=== PATIENT | male | born 1965 | race Caucasian/White ===

== ENCOUNTER 2023-07-08 15:27 | Outpatient (OUT) | payer BC, SELFPAY ==
--- NOTE | 2023-07-08 15:29 | CT_ITS ---
[address] [address] Patient Name: RUBEN AWAD MRN: [id number] date: 1965 Sex: M Assigned Patient Location: CT Current Patient Location: CT Accession/Order Number: [id number] Exam Date: 07/08/2023 15:38 Report Date: 07/08/2023 16:57 At the request of: JEREMÍAS EVANS Procedure: CT angio chest EXAM: CT angio chest HISTORY: 171.21 ANEURYSM OF THE ASCENDING AORTA WITHOUT RUPTURE COMPARISON: 04/03/2019 TECHNIQUE: Postcontrast images were obtained of the chest in the arterial phase. 3-D and multiplanar reconstructions were performed. CTA CHEST FINDINGS: Lungs/Pleura: There is a prominent pulmonary nodule in the right lower lobe measuring 1.9 x 1.4 x 1.5 cm. No pleural effusion or pneumothorax. Cardiovascular: The heart is normal in size. No coronary artery calcifications are identified. The ascending aorta is dilated measuring 4.4 cm in diameter. No pulmonary embolus. Pericardium: No effusion. Mediastinum: Unremarkable. Lymph Nodes: No lymph node enlargement by CT size criteria. Bones: No acute osseous abnormality. Soft tissues: Unremarkable. IMPRESSION CTA CHEST: 1. Aneurysmal dilatation of the ascending thoracic aorta measuring 4.4 cm in diameter. 2. Prominent pulmonary nodule in the right lower lobe measuring up to 1.9 cm in diameter. Tissue biopsy, PET/CT or a 3 month follow-up CT is recommended for further assessment. 3. Right hilar lymph node enlargement as well as prominence of a right paratracheal lymph node measuring up to 1.5 cm in short axis, which is nonspecific, possibly due to reactive changes, metastatic disease or other lymphoproliferative process. Incidental findings were submitted through the radiology reporting system at 1657 hours on 07/08/2023. Electronically authenticated by: TRICIA STARK Date: 07/08/2023 16:57
== END 2023-07-08 15:28 | disposition home or self-care (01) ==
LOC: CT 15:27
PROVIDERS: PCP Family Medicine; Visit Provider Family Medicine
DX: R07.9 Chest pain, unspecified (principal); I71.21 Aneurysm of the ascending aorta, without rupture; R59.0 Localized enlarged lymph nodes; R91.1 Solitary pulmonary nodule
CPT/HCPCS: 71275; Q9967

== ENCOUNTER 2024-02-04 09:26 | Outpatient (OUT) | payer BC, SELFPAY ==
--- NOTE | 2024-02-04 | CT_ITS ---
The [address] [address] Patient Name: RUBEN AWAD MRN: [id number] date: 1965 Sex: M Assigned Patient Location: CT Current Patient Location: CT Accession/Order Number: [id number] Exam Date: 02/04/2024 09:40 Report Date: 02/04/2024 16:29 At the request of: JEREMÍAS EVANS Procedure: CT angio chest CT angio chest HISTORY: Aneurysm of the ascending aorta without rupture TECHNIQUE: CTA chest with intravenous contrast attention to the thoracic aorta. Sagittal, coronal and slab 3D MIP coronal reconstructed images were also created for further evaluation and interpretation. One of the following dose optimization techniques was utilized in the performance of this exam: Automated exposure control; adjustment of the mA and/or kV according to the patient's size; or use of an iterative reconstruction technique. Specific details can be referenced in the facility's radiology CT exam operational policy. COMPARISON: 03/18/2023 FINDINGS: Thoracic aorta: Cardiac pulsation artifact at the aortic root. 4.2 cm ascending thoracic aortic aneurysm. No evidence of dissection. Pulmonary arteries: Negative Mediastinum: Negative. Lymph nodes: Negative. Lungs/pleura: Stable 1.9 cm maximum diameter solid right lower lobe pulmonary nodule Visualized upper abdomen: Negative. Bones/soft tissues: Negative. CT/CT angio chest IMPRESSION: 1. Stable 4.2 cm descending thoracic aneurysm. 2. Stable 1.9 cm solid right lower lobe pulmonary nodule. Recommend one-year surveillance. Electronically authenticated by: ARPIT WEN Date: 02/04/2024 16:29
[2024-02-04 10:25] LABS: Basophils Percent Auto 0.1 % (0.2-2.0); Eosinophils Percent Auto 0.1 % (0.9-7.0); Hematocrit 47.3 % (42.0-54.0); Hemoglobin 15.8 g/dL (14.0-18.0); Immature Granulocytes Abs Auto 0.05 10^3/uL (0.00-0.03); Immature Granulocytes Pct Auto 0.3 % (0.0-0.5); Lymphocytes Absolute Auto 1.3 10^3/uL (1.2-3.8); Lymphocytes Percent Auto 8.4 % (20.5-60.0); Mean Corpuscular HGB Conc 33.4 g/dL (29.9-35.2); Mean Corpuscular Hemoglobin 29.1 pg (25.9-34.0); Mean Corpuscular Volume 87.1 fL (80.0-94.0); Mean Platelet Volume 8.9 fL (9.5-13.5); Monocytes Absolute Auto 0.2 10^3/uL (0.3-0.8); Monocytes Percent Auto 1.2 % (1.7-12.0); Neutrophils Absolute Auto 13.6 10^3/uL (1.4-6.5); Neutrophils Percent Auto 89.9 % (43.0-75.0); Platelet Count 300 10^3/uL (150-450); Red Blood Count 5.43 10^6/uL (4.70-6.10); Red Cell Distribution Width 12.6 % (11.0-15.0); White Blood Count 15.1 10^3/uL (4.0-11.0)
[2024-02-04 11:18] LABS: Estimated Average Glucose 117 mg/dL; Glycohemoglobin A1C 5.7 % (4.5-6.2)
[2024-02-04 12:01] LABS: Prostate Specific Antigen Scrn 1.03 ng/mL (<=4.00)
[2024-02-04 12:03] LABS: Alanine Aminotransferase 35 U/L (16-63); Albumin Globulin Ratio 0.9; Albumin Level 3.7 g/dL (3.4-5.0); Alkaline Phosphatase 103 U/L (46-116); Anion Gap 14.9; Aspartate Amino Transferase 20 U/L (15-37); BUN Creatinine Ratio 24.7; Bilirubin Total 0.8 mg/dL (0.2-1.0); Calcium 9.7 mg/dL (8.5-10.1); Carbon Dioxide 26.9 mmol/L (21.0-32.0); Chloride 100 mmol/L (98-107); Chol HDL Ratio 3.5; Cholesterol 226 mg/dL (<=200); Estimated GFR (African America >60 (>=60); Estimated GFR (Non-African Ame >60 (>=60); Globulin 4.3 g/dL; Glucose 162 mg/dL (74-106); HDL Cholesterol 64 mg/dL (40-60); Potassium 4.8 mmol/L (3.5-5.1); Sodium 137 mmol/L (136-145); Thyroid Stimulating Hormone 0.768 uIU/mL (0.358-3.740); Triglycerides 48 mg/dL (<=150); VLDL CHOLESTEROL 9.6 mg/dL
== END 2024-02-04 09:27 | disposition home or self-care (01) ==
LOC: CT 09:26
PROVIDERS: PCP Family Medicine; Visit Provider Family Medicine
DX: Z00.00 Encounter for general adult medical examination without abnormal findings (principal); I71.21 Aneurysm of the ascending aorta, without rupture; R91.1 Solitary pulmonary nodule
CPT/HCPCS: 36415; 71275; 80053; 80061; 83036; 84436; 84443; 84481; 85025; G0103; Q9967

== ENCOUNTER 2024-11-16 07:49 | Outpatient (OUT) | payer BC, SELFPAY ==
--- NOTE | 2024-11-16 07:54 | CT_ITS ---
[address] [address] Patient Name: RUBEN AWAD MRN: [id number] date: 1965 Sex: M Assigned Patient Location: CT Current Patient Location: Accession/Order Number: [id number] Exam Date: 11/16/2024 08:00 Report Date: 11/19/2024 15:09 At the request of: JEREMÍAS EVANS Procedure: CT angio chest EXAMINATION: CT angio chest HISTORY: Aneurysm Of Ascending Aorta I71.21 COMPARISON: 02/04/2024 TECHNIQUE: Multi-planar CT images were created with IV contrast. Axial, Coronal, and Sagittal images. Dose reduction techniques were achieved by using automated exposure control and/or adjustment of mA and/or kV according to patient size and/or use of iterative reconstruction technique. FINDINGS: LUNGS: Stable 1.7 x 1.2 cm solid nodule identified in the suprasellar the right lower lobe axial image 53. Additional subcentimeter pulmonary nodules are stable both in number and size from the prior exam. No new pulmonary nodule or mass PLEURA: No mass, effusion, or pneumothorax. VASCULATURE: Normal postcontrast opacification of central pulmonary arterial tree with no filling defects WENDY: Small bilateral hilar lymph nodes right greater than left, stable MEDIASTINUM: No mass or adenopathy. CARDIAC: No enlargement or pericardial effusion AORTA: 4.1 cm aneurysm ascending thoracic aorta CHEST WALL: No mass or axillary adenopathy. BONES: No bone lesion or fracture. LIMITED ABDOMEN: No suspicious findings. Limited images of the upper abdomen. OTHER: Negative. CT/CT angio chest IMPRESSION: Stable 4.1 cm ascending thoracic aortic aneurysm Stable 1.7 cm nodule superior segment of the right lower lobe Electronically authenticated by: CELINA SHORE Date: 11/19/2024 15:09
--- OUTSIDE RECORDS SUMMARY | 2024-11-16 07:59 | XMS_ITS | CCD ---
Author Organization [facility] Care Team Providers Care Gear Cutting Machine Set Up Operator Name Role Phone BOB VÁZQUEZ Referring Unavailab le ROYALYJEREMÍAS Primary Care Unavailable BOB VÁZQUEZ Referring Unavailab le HOY, JEREMÍAS Mary Primary Care Unavailable BOB VÁZQUEZ Referring Unavailab le ROYALY, JEREMÍAS M Primary Care Unavailable BOB VÁZQUEZ Referring Unavailab le ROYALY, JEREMÍAS M Primary Care Unavailable BOB VÁZQUEZ Admitting Unavailab BOB Lopez Attending Unavailab le JEREMÍAS SOTOMAYOR Primary Care Unavailable BOB VÁZQUEZ Referring Unavailab le HOY, JEREMÍAS M Primary Care Unavailable BOB VÁZQUEZ Referring Unavailab le ROYALY, JEREMÍAS M Primary Care Unavailable Jeremías Sotomayor Primary Care Physician Unavailable Primary Care Provider UnavailATIF Werner Consulting Unavailable HOY ., DR VERONICA Primary Care Unavailable ATIF ATKINS Admitting Unavailable ATIF ATKINS Attending Unavailable ZIEBER, DR BALTAZAR Shetty Consulting Unavailable HOY ., DR VERONICA Primary Care Unavailable NILL ., DR ROJAS Admitting Unavailable NILL ., DR ROJAS Attending Unavailable NILL ., DR ROJAS Consulting Unavailable HOY ., DR VERONICA Primary Care Unavailable HOY ., DR VERONICA Admitting Unavailable HOY ., DR VERONICA Attending Unavailable HOY ., DR VERONICA Primary Care Unavailable HOY ., DR VERONICA Admitting Unavailable HOY ., DR VERONICA Attending Unavailable HOY ., DR VERONICA Consulting Unavailable SELF, SELF Referring Unavailable MADIHA IBARRA Attending Unavailable MADIHA IBARRA Attending Unavailable MADIHA IBARRA Referring Unavailable PABLO WOLFE) Attending Unavail able SAMANTHA LONG Referring Unavailable Jeremías Sotomayor Attending Unavailable Jeremías Sotomayor Referring Unavailable MD Jeremías Sotomayor Admitting Unavailable Jeremías Sotomayor Consulting Unavailable Shahzad BLACKBURN Admitting Unavailable Shahzad BLACKBURN Attending Unavailable Shahzad BLACKBURN Referring Unavailable MD Jeremías Sotomayor Consulting Unavailable SAMANTHA LONG Consulting Unavailable JESSE STOVER Admitting Unavailable JESSE STOVER Attending Unavailable JESSE STOVER Referring Unavailable Allergies Allergy Classification Reported Allergen(s) Allergy Type Date of Onset Reaction(s) Facility (1 source) Iodinated Diagnostic Agents Propensity to adverse reactions to drug 3 Nausea and Vomiting [facility] (1 source) No Known Medication Allergies; Translations: [No Known Medication Allergies] Propensity to adverse reactions (disorder) [facility] Repository Medications Current Medications Medication Drug Class(es) Dates Sig (Normalized) Sig (Original) amoxicillin 875 mg / clavulanate 125 mg oral tablet (1 source) Penicillin-class Antibacterial Start: 09-27-2022 End: 10-04-2022 take 1 tablet by mouth every twelve hours Augmentin 875 mg oral tablet = 1 tab(s), Oral, q12hr, X 7 day(s), # 14 tab(s), Refills(s) 0, Pharmacy: [id number], 184, cm, 09/24/22 23:10:00 EST, Height/Length Dosing, 123.6, kg, 09/24/22 23:10:00 EST, Weight Dosing Start Date: 09/27/22 Stop Date: 10/04/22 Status: Ordered docosahexaenoic acid 120 mg / eicosapentaenoic acid 180 mg oral capsule (1 source) take 2 capsules by mouth once daily [place]-3 1000 MG capsule Take 2 capsules by mouth daily. 0 Active 12 hr guaiFENesin 600 mg extended release oral tablet (1 source) Start: 09-27-2022 End: 10-02-2022 take 2 tablets by mouth twice daily Mucinex 600 mg Tab-ER 1,200 mg = 2 tab(s), Oral, BID, X 5 day(s), # 20 tab(s), Refills(s) 0, Pharmacy: [facility], 184, cm, 09/24/22 23:10:00 EST, Height/Length Dosing, 123.6, kg, 09/24/22 23:10:00 EST, Weight Dosing Start Date: 09/27/22 Stop Date: 10/02/22 Status: Ordered HERBAL PRODUCT (4 sources) take 2 tablets by mouth once daily HERBAL PRODUCT Take 2 tablets by mouth daily. CellWise: Vitamin A, C, E Calcium Mixed Carotenoids Mixed Tocophenols Lycopene [place] extract Grape seed extract 0 Active take 2 capsules by mouth once da harika HERBAL PRODUCT Take 2 capsules by mouth daily. ProvexCV Grape see extract Reseveratrol Green tea leaf extract Proteases Quercetin Powder Bilberry fruit extract Ginkgo Biloba leaf extract 0 Active take 2 tablets by mouth once chad ly HERBAL PRODUCT Take 2 tablets by mouth daily. Recover AI Devil's Claw Bijal root Chokeberry Green tea Flower gigas Turmeric 0 Active take 1 capsule by mouth once chad ly HERBAL PRODUCT Take 1 capsule by mouth daily. Florify Lactobacilus Bifidobacterium Frctooligosaccharides 0 Active Multi Vitamin+ (2 sources) Start: 08-22-2020 take 1 tablet by mouth once daily Multi Vitamin+ 1 tab(s), Oral, Daily, Refill(s) 0, Prophylaxis Start Date: 08/22/20 Status: Ordered Multivitamin w/ minerals tablet (1 source) take 1 tablet by mouth once daily Multivitamin w/ minerals tablet Take 1 tablet by mouth daily. 0 Active Vitamin D (2 sources) Start: 10-20-2020 take 1 tablet by mouth once daily Vitamin D 1 tab, Oral, Daily, Prophylaxis Start Date: 10/20/20 Status: Ordered Problems Active Problems Problem Classification Problem Date Documented Da te Episodic/Chronic Aortic; peripheral; and visceral artery aneurysms (3 sources) Aortic root dilatation; Translations: [Thoracic aortic ectasia] Onset: 12-03-2022 Chronic Cardiac dysrhythmias (1 source) Tachyarrhythmia ; Translations: [Tachycardia, unspecified] Onset: 09-25-2022 Episodic Diseases of white blood cells (1 source) Leukocytosis; Translations: [Elevated white blood cell count, unspecified] Onset: 09-25-2022 Chronic Fluid and electrolyte disorders (1 source) Hypo-osmolality and or hyponatremia; Translations: [Hypo-osmolality and hyponatremia] Onset: 09-25-2022 Episodic Influenza (1 source) Influenza; Translations: [Influenza due to unidentified influenza virus with other respiratory manifestations] Onset: 09-25-2022 Episodic Joint disorders and dislocations; trauma-related (2 sources) Other articular cartilage disorders, left shoulder; Translations: [Other articular cartilage disorders, left shoulder] Onset: 11-01-2018 Chronic Lymphadenitis (4 sources) Mediastinal lymphadenopathy; Translations: [Localized enlarged lymph nodes] Onset: 11-18-2022 Episodic Nonmalignant breast conditions (6 sources) Breast lump; Translations: [Unspecified benign mammary dysplasia of right breast] Onset: 11-09-2022 08-22-2020 Episodic Other and unspecified benign neoplasm (2 sources) Tubular adenoma of colon 10-16-2020 Episodic Other connective tissue disease (2 sources) Unspecified rotator cuff tear or rupture of left shoulder, not specified as traumatic; Translations: [Unspecified rotator cuff tear or rupture of left shoulder, not specified as traumatic] Onset: 11-01-2018 Episodic Other connective tissue disease (2 sources) Impingement syndrome of left shoulder; Translations: [Impingement syndrome of left shoulder] Onset: 11-01-2018 Episodic Other gastrointestinal disorders (2 sources) Occult blood in stools 10-16-2020 Episodic Other lower respiratory disease (2 sources) Nodule of lung; Translations: [Solitary pulmonary nodule] Onset: 11-18-2022 Episodic Other lower respiratory disease (2 sources) Solitary pulmonary nodule; Translations: [Solitary pulmonary nodule] Onset: 11-18-2022 Episodic Other lower respiratory disease (2 sources) Other nonspecific abnormal finding of lung field; Translations: [Other nonspecific abnormal finding of lung field] Onset: 11-18-2022 Episodic Other lower respiratory disease (1 source) Abnormal findings on diagnostic imaging of lung; Translations: [Other nonspecific abnormal finding of lung field] Episodic Other lower respiratory disease (1 source) Solitary nodule of lung; Translations: [Solitary pulmonary nodule] Episodic Other non-traumatic joint disorders (1 source) Pain in left shoulder; Translations: [Pain in left shoulder] Onset: 11-01-2018 Episodic Other nutritional; endocrine; and metabolic disorders (1 source) Obesity; Translations: [Obesity, unspecified] Onset: 09-25-2022 Chronic Pneumonia (except that caused by tuberculosis or sexually transmitted disease) (1 source) Pneumonia; Translations: [Pneumonia, unspecified organism] Onset: 09-25-2022 Episodic Residual codes; unclassified (4 sources) Obstructive sleep apnea (adult) (pediatric); Translations: [OBSTRUCTIVE SLEEP APNEA] Onset: 11-30-2022 Chronic Residual codes; unclassified (1 source) Procedure carried out on subject; Translations: [Encounter for prophylactic measures, unspecified] Onset: 09-25-2022 Episodic Septicemia (except in labor) (1 source) Sepsis; Translations: [Sepsis, unspecified organism] Onset: 09-25-2022 Episodic Spondylosis; intervertebral disc disorders; other back problems (2 sources) Low back pain 10-16-2020 Episodic Sprains and strains (2 sources) Strain of muscle, fascia and tendon of other parts of biceps, left arm, initial encounter; Translations: [Strain of muscle, fascia and tendon of other parts of biceps, left arm, initial encounter] Onset: 11-01-2018 Episodic Unclassified (4 sources) Lt Shoulder RC IS Bicep partial tear; Translations: [Lt Shoulder RC IS Bicep partial tear] Onset: 10-13-2018 Unclassified (2 sources) LEFT SHOULDER ROTATOR CUFF IMPINGEMENT SYNDROME AND PARTIAL BICEP TEAR; Translations: [LEFT SHOULDER ROTATOR CUFF IMPINGEMENT SYNDROME AND PARTIAL BICEP TEAR] Onset: 10-18-2018 Unclassified (1 source) Aneurysm of the ascending aorta, without rupture; Translations: [Aneurysm of the ascending aorta, without rupture] Onset: 12-03-2022 Past or Other Problems Problem Classification Problem Date Documented Da te Episodic/Chronic Mood disorders (1 source) Mood disorders Onset: 11-18-2022 11-18-2022 Unclassified (1 source) Aneurysm of the ascending aorta, without rupture; Translations: [Aneurysm of the ascending aorta, without rupture] Onset: 12-03-2022 Results Test Name Value Interpretation Reference Range Facility CTA Cheston 03-22-2023 CTA Chest Exam Date/Time: 03/18/2023 16:12 EDT Reason for Exam: I71.21, lung nodule Report IMPRESSION: STABLE 4.2 CM ASCENDING THORACIC AORTIC ANEURYSM. STABLE APPROXIMATELY 1.4 CM RIGHT LOWER LOBE PULMONARY NODULE AND SURROUNDING OPACITY. The patient experienced severe nausea after the IV injection, and further follow-up imaging should be performed without IV contrast; with the patient has symptoms requiring contrast and steroid pretreatment is suggested. EXAM: CTA Chest DATE: 03/18/2023 CLINICAL HISTORY: I71.21, lung nodule. COMPARISON: Chest CTA 09/25/2022, chest CT with contrast 11/05/2022, and PET/CT 11/05/2022. TECHNIQUE: Spiral enhanced images were obtained of the chest after the infusion of approximately 100 mL of Isovue 370 contrast with pulmonary artery CTA protocol. Routine and volume rendered images were performed on a three-dimensional workstation. All CT scans at this facility use dose modulation, iterative reconstruction, and/or weight based dosing when appropriate to reduce radiation dose to as low as reasonably achievable. FINDINGS: Fusiform aneurysmal dilatation of the ascending thoracic aorta. Unchanged, measuring approximately 4.2 cm in maximum transverse dimension (measured in similar fashion). An approximately 1.4 cm subpleural nodule (measured in a similar fashion from 11/05/2022) within the superior segment of the right lower with smaller surrounding satellite nodules and groundglass opacity, has not significantly changed. Mild left hilar and mediastinal lymphadenopathy appears stable. There are no developing pulmonary infiltrates, other nodules, pleural or pericardial effusions, or other significant changes identified elsewhere. Minimal mild degenerative changes of the thoracic spine are again noted. Left greater than right gynecomastia appears similar. The limited imaging of the included upper abdomen is noncontributory. Report Ordering Provider: JESSE STOVER FINAL REPORT Dictated: 03/22/2023 8:34 am Mansoor Carpio MD Signed (Electronic Signature): 03/22/2023 8:34 am Signed by: Mansoor Carpio MD Transcribed by: ESTEE Technologist: OCTAVIO Technical Comments GFR (mL/min/1/73m2) n/a Contrast: Isovue 370 Contrast amount in ml's: 100 [facility] Consent for Treatmenton Consent for Treatment [id number] #1.00CD:127 [facility] Physician Orderon 03-10-2023 Physician Order [id number]#1.00CD:127 [facility] Pre-Certification Formon Pre-Certification Form [id number]#1.00CD:127 [facility] BLASTOMYCES, SERUMon 023 BLASTOMYCES AG, SERUM INTERPRETATION Negative [facility] Comment on above: ADDITIONAL INFORMATION Reference interval: None Detected Results reported as ng/mL in 0.2 - 14.7 ng/mL range Results above the limit of detection but below 0.2 ng/mL are reported as 'Positive, Below the Limit of Quantification' Results above 14.7 ng/mL are reported as 'Positive, Above the Limit of Quantification' This test was developed and its performance characteristics determined by [facility]. It has not been cleared or approved by the FDA; however, FDA clearance or approval is not currently required for clinical use. The results are not intended to be used as the sole means for clinical diagnosis or patient management decisions. Test Performed by: [facility] [address] [facility] [place] [address] BLASTOMYCES AG, SERUM RESULT Not detected ng/mL [facility] FUNGAL COMP. FIX. BATTERYon 11-22-2022 ASPERGILLUS CF ANTIBODY <1:8 Reference range: <1:8 INTERPRETIVE INFORMATION: Aspergillus Antibodies by CF A titer of 1:8 or greater suggests Aspergillus infection or allergy. Cross-reactions with dimorphic fungi are not unusual within the genus Aspergillus. Performed By: [facility] [address] [place] [address] Alpine Guide: Kwan Whitten MD, PhD Performed at [facility], [address] [place] [address] BLASTOMYCES CF ANTIBODY 0.6 Reference range: <=0.9 Unit: IV INTERPRETIVE INFORMATION: Blastomyces Antibodies EIA, SER 0.9 IV or less.......Negative 1.0-1.4 IV...........Equivoc al 1.5 IV or greater....Positive [facility] COCCIDIOIDES CF ANTIBODY <1:2 Reference range: <1:2 INTERPRETIVE INFORMATION: Coccidioides Ab by Complement Fixation (CF) Any titer suggests past or current infection. However, greater than 30 percent of cases with chronic residual pulmonary disease have negative Complement Fixation (CF) tests. Titers of less than 1:32 (even as low as 1:2) may indicate past infection or self-limited disease; anticoccidiodal CF antibody titers in excess of 1:16 may indicate disseminated infection. CF serology may be used to follow therapy. Antibody in CSF is considered diagnostic for coccidioidal meningitis, although 10 percent of patients with coccidioidal meningitis will not have antibody in CSF. [facility] H. capsulatum yeast phase Ab CF (S) [Titer] <1:8 Reference range: <1:8 INTERPRETIVE INFORMATION: Histoplasma Yeast Antibodies by CF A titer of 1:8 or greater is generally considered presumptive evidence of histoplasmosis. A titer of 1:32 or greater or rising titers indicate strong presumptive evidence of histoplasmosis. Cross reactions, usually at lower titers, may occur with other fungal diseases. [facility] HISTOPLASMA MYCELIAL CF AB <1:8 Reference range: <1:8 INTREPRETIVE INFORMATION: Histoplasma Mycelia Antibodies by CF A titer of 1:8 or greater is generally considered presumptive evidence of histoplasmosis. A titer of 1:32 or greater or rising titers indicate strong presumptive evidence of histoplasmosis. Cross reactions, usually at lower titers, may occur with other fungal diseases. [facility] HISTOPLASMA ANTIGEN, SERUMon 11-22-2022 H. capsulatum Ag IA Qn (S) Not detected ng/mL [facility] Histo interpretation Negative [facility] Comment on above: ADDITIONAL INFORMATION Reference interval: None Detected Reportable Range: Positive Results reported in ng/mL from 0.20 ng/mL to 20.00 ng/mL Positive Results above 20.00 ng/mL are reported as 'Above the Limit of Quantification' This test was developed and its performance characteristics determined by [facility]. It has not been cleared or approved by the FDA; however, FDA clearance or approval is not currently required for clinical use. The results are not intended to be used as the sole means for clinical diagnosis or patient management decisions. Test Performed by: [facility] [address] [place] [address] [place] [address] [facility] BLASTOMYCES, URINEon 023 B. dermatitidis Ag IA Ql (U) Not detected Not Detected [facility] Comment on above: No Blastomyces antig en detected. False negative results may occur. Repeat testing on a new specimen should be considered if clinically indicated. BLASTOMYCES AG, URINE INTERPRETATION Not detected ng/mL [facility] Comment on above: ADDITIONAL INFORMATION This test was developed and its performance characteristics determined by [facility] in a manner consistent with CLIA requirements. This test has not been cleared or approved by the U.S. Food and Drug Administration. Test Performed by: [facility] [place] [address] Casting Machine Service Operator: Pedro Warren M.D. Ph.D.; CLIA# [id number] [facility] HISTOPLASMA ANTIGEN,URINEon 11-20-2022 H. capsulatum Ag (U) [Mass/Vol] Not detected ng/mL [facility] Comment on above: ADDITIONAL INFORMATION This test has been modified from the strategic communications manager's instructions. Its performance characteristics were determined by [facility] in a manner consistent with CLIA requirements. This test has not been cleared or approved by the U.S. Food and Drug Administration. Test Performed by: [facility] [place] [address] Casting Machine Service Operator: Pedro Warren M.D. Ph.D.; CLIA# [id number] H. capsulatum Ag IA Ql (U) Not detected Not Detected [facility] Comment on above: No Histoplasma antig en detected. False negative results may occur. Repeat testing on a new specimen should be considered if clinically indicated. [facility] BLASTOMYCES, SERUMon 023 BLASTOMYCES AG, SERUM INTERPRETATION Negative Normal [facility] Comment on above: Result Comment: ADDITIONAL INFORMATION Reference interval: None Detected Results reported as ng/mL in 0.2 - 14.7 ng/mL range Results above the limit of detection but below 0.2 ng/mL are reported as 'Positive, Below the Limit of Quantification' Results above 14.7 ng/mL are reported as 'Positive, Above the Limit of Quantification' This test was developed and its performance characteristics determined by [facility]. It has not been cleared or approved by the FDA; however, FDA clearance or approval is not currently required for clinical use. The results are not intended to be used as the sole means for clinical diagnosis or patient management decisions. Test Performed by: [facility] [address] [place] [address] Performed By: #### Y FBMS #### [facility] (DEFAULT) [address] [place] [address] BLASTOMYCES AG, SERUM RESULT Not detected Normal [facility] Comment on above: Performed By: #### Y FBMS #### [facility] (DEFAULT) [address] [place] [address] BLASTOMYCES, URINEon 023 BLASTOMYCES AG, URINE INTERPRETATION Not detected Normal [facility] Comment on above: Result Comment: ADDITIONAL INFORMATION This test was developed and its performance characteristics determined by [facility] in a manner consistent with CLIA requirements. This test has not been cleared or approved by the U.S. Food and Drug Administration. Test Performed by: [facility] [place] [id number] [place] [address] Casting Machine Service Operator: Pedro Warren M.D. Ph.D.; CLIA# [id number] Performed By: #### Y FBMU #### [facility] (DEFAULT) [address] [place] [address] BLASTOMYCES AG, URINE RESULT Not detected Normal Not Detected [facility] Comment on above: Result Comment: No B lastomyces antigen detected. False negative results may occur. Repeat testing on a new specimen should be considered if clinically indicated. Performed By: #### Y FBMU #### [facility] (DEFAULT) [address] [address] FUNGAL COMP. FIX. BATTERYon 11-18-2022 ASPERGILLUS CF ANTIBODY Normal O [facility] Comment on above: Result Comment: <1:8 Reference range: <1:8 INTERPRETIVE INFORMATION: Aspergillus Antibodies by CF A titer of 1:8 or greater suggests Aspergillus infection or allergy. Cross-reactions with dimorphic fungi are not unusual within the genus Aspergillus. Performed By: [facility] [address] [place] [address] Alpine Guide: Kwan Whitten MD, PhD Performed at [facility], [address] [place] [address] Performed By: #### F CFX #### [facility] (DEFAULT) [address] [place] [address] BLASTOMYCES CF ANTIBODY Normal O [facility] Comment on above: Result Comment: 0.6 Reference range: <=0.9 Unit: IV INTERPRETIVE INFORMATION: Blastomyces Antibodies EIA, SER 0.9 IV or less.......Negative 1.0-1.4 IV...........Equivocal 1.5 IV or greater....Positive Performed By: #### F CFX #### [facility] (DEFAULT) [address] [place] [address] COCCIDIOIDES CF ANTIBODY Normal [facility] Comment on above: Result Comment: <1:2 Reference range: <1:2 INTERPRETIVE INFORMATION: Coccidioides Ab by Complement Fixation (CF) Any titer suggests past or current infection. However, greater than 30 percent of cases with chronic residual pulmonary disease have negative Complement Fixation (CF) tests. Titers of less than 1:32 (even as low as 1:2) may indicate past infection or self-limited disease; anticoccidiodal CF antibody titers in excess of 1:16 may indicate disseminated infection. CF serology may be used to follow therapy. Antibody in CSF is considered diagnostic for coccidioidal meningitis, although 10 percent of patients with coccidioidal meningitis will not have antibody in CSF. Performed By: #### F CFX #### [facility] (DEFAULT) [address] [address] HISTOPLASMA MYCELIAL CF AB Normal [facility] Comment on above: Result Comment: <1:8 Reference range: <1:8 INTREPRETIVE INFORMATION: Histoplasma Mycelia Antibodies by CF A titer of 1:8 or greater is generally considered presumptive evidence of histoplasmosis. A titer of 1:32 or greater or rising titers indicate strong presumptive evidence of histoplasmosis. Cross reactions, usually at lower titers, may occur with other fungal diseases. Performed By: #### F CFX #### [facility] (DEFAULT) [address] [place] [address] Histoplasma Yeast CF Antibody Normal [facility] Comment on above: Result Comment: <1:8 Reference range: <1:8 INTERPRETIVE INFORMATION: Histoplasma Yeast Antibodies by CF A titer of 1:8 or greater is generally considered presumptive evidence of histoplasmosis. A titer of 1:32 or greater or rising titers indicate strong presumptive evidence of histoplasmosis. Cross reactions, usually at lower titers, may occur with other fungal diseases. Performed By: #### F CFX #### [facility] (DEFAULT) [address] [place] [address] HISTOPLASMA ANTIGEN, SERUMon 11-18-2022 Histo interpretation Negative Normal [facility] Comment on above: Result Comment: ADDITIONAL INFORMATION Reference interval: None Detected Reportable Range: Positive Results reported in ng/mL from 0.20 ng/mL to 20.00 ng/mL Positive Results above 20.00 ng/mL are reported as 'Above the Limit of Quantification' This test was developed and its performance characteristics determined by [facility]. It has not been cleared or approved by the FDA; however, FDA clearance or approval is not currently required for clinical use. The results are not intended to be used as the sole means for clinical diagnosis or patient management decisions. Test Performed by: [facility] [id number] [place] [address] Performed By: #### Y FHIST #### [facility] (DEFAULT) [address] [address] Histoplasma Antigen, Serum Not detected Normal [facility] Comment on above: Performed By: #### Y FHIST #### [facility] (DEFAULT) [address] [address] HISTOPLASMA ANTIGEN,URINEon 11-18-2022 HISTOPLASM AG, URINE Not detected Normal Not Detected [facility] Comment on above: Result Comment: No H istoplasma antigen detected. False negative results may occur. Repeat testing on a new specimen should be considered if clinically indicated. Performed By: #### Y HISTG #### [facility] (DEFAULT) [address] [address] Histoplasma Ag Value Not detected Normal [facility] Comment on above: Result Comment: ADDITIONAL INFORMATION This test has been modified from the strategic communications manager's instructions. Its performance characteristics were determined by [facility] in a manner consistent with CLIA requirements. This test has not been cleared or approved by the U.S. Food and Drug Administration. Test Performed by: [facility] [place] [address] Casting Machine Service Operator: Pedro Warren M.D. Ph.D.; CLIA# [id number] Performed By: #### Y HISTG #### [facility] (DEFAULT) [address] [address] Outside Mammographyon 2022 Outside Mammography [id number] #1.00CD:127 Normal [facility] Coding Summary.on 11-12-2022 Coding Summary. CD:[id number] Gh0bWw+PGhlYWQ+PE1FV YLmW73swZBepT5BG4xEZ K0RGPYBXPWTWZ5CVK4an PE2NTbcQ4FhbpKr QpcsuFLgCK18LXq6ZXM6 cGqcQGmpvK9tjPGaV6z5 BpOdTC96yK37ZWieGTGd DtR3ZnSrnikjxQOw T3waXcZsgFUlYvl+PHRh YmxlIHdpZHRoPScxMDAl CcQneQivFN6nNc3jYGOq LWNvbGxhcHNlOiBj y7uyELFqCEyqHQ9udQiz L5MusMS3WMKzb5a3Nt91 dHI+IPIlQLI4sBjvXAuu b443BzIqo5qdPCE9 nJYkHHdcHHZ2O28be6D7 HVQsBXTeIHI5mYL6fV4n bHkjywkaT4HxmDLiQdB3 QKZ0eITxqB8zwHqc aciybH6jRjv+O29TPY6V YKXLNT5EYyi5Y1AoSazo dHI+CN11ULEeDU75hEAr sVPrt3lqxKk5AlUp JYUmRGV2qCoaYWcuy2Kj RFIfX31vcDYmu3E7CYKv eQhriIEqByJzvMH0cL3v RXorzdkjl4ezfhfg Jtoqs3cbvu70dT55O16a UAdyAMGfJZJ4QIGlXBLb zXuuhm3clJ7tYu9+IDxj c7cfz9xapYv7HrOi GYEmbsPzgNmqPWO1e0Lr Zf59H4EatBwrg6AvWji3 ng82yVEgz6S9hHZ5ULep ZWOkvM6ySHpmEgS3 YOSaJbXnjQ48dIIzHYoe Ws0pyBrxoLujGZ4cZYMy atftOUIphM3oPWFieCWo wJouWH6pBPXhvnll c584MdJmVTI1SHGdtPEy Z5IheX2kNtLvBFDmWGXm T4VagNIeBKikK591GHrc HgH8CPOhxxRnJ2Ee GELzfTnrTyS4z5U1Yq3D h9OozhngAVC1WZdxNACv NrGoGrXbSqR6H3OrRyt6 COLlqRybSW6jT5Ex LATxgnvlnbdnxFX5SXVr FKQhyX57tIXiOKxbTh4x d2P0k032HCUuGSSfaR41 Mm4hiXbgMJAucVXX gU0oehvox5mhqoxtPcWw BZZeMJy4YQy2NCWzhQad XpOfIEF1OqG4MDH5sGIh zU0zlTocajybiE9p Oyc+C37cyB1fASQ2ZFT6 xvkmUYUfixQcLS95JQ98 V1KaFhvsqNDypCE+PGRp yuIqrJpoXX9oLzHw y7otb7XcADczQ0YoVZSh XNsmEfs1RUFmJJS6tXS7 wL9qYVRhVRpyf9W8oKH1 A9VkliGhsn3ew6wq BGMtNLmuS83amUUet0Q7 JSXwxRT7IHKqbRamFtCh wY88Jaa+DZRqnUapv8Kt Pdlzm5gnc9hqiRd6 IjMwJSIgdmFsaWduPSJ0 m4AdVs26I37eEPzoSIIc NIMbDBPfDADdrQxfzf6e xJ7tWt1+PGNvbCB3 nZS5dD6zVFZaFyC9XAwm V000DgXzlYYkTgwxx2ue a2dfbPq5LjJjDDRhhbIh qVeoLWA5e8BiBf94 R02wDDqtXXRmVNBrLTVv ELYoiKgmdc2liL9sHq1+ UQ1sk1cvyw39bX86yVB+ GBCsWBM9bMglQUvr MCXxsM8sLClrMbH6FUJh DyRnyA35dDFwGVcmUj1i qCvnyXtuGX9hATLraqkd a168UfBns3ylJWKp pNRfQKuvFAY3W76ta1H7 HSOuYDOcWWE9iQP8xO2b bGlnbjogbGVmdDsgdmVy qGqyBMuiCGzlR223 IHRvcDsnPlBhdGllbnQg ToMwAPz3L2XkGib8MSLi gRkrEJ5fzHMlBOuiXz6o mXxjjAasEM4hQIOf zhqfo209BpCgc4vmUQZw cGBpKBkoODR9C92up6Z1 BOWnZZCwZBG1lNT0vL8c bGlnbjogbGVmdDsg ltKaqCyzOPbvAOhlE818 IHRvcDsnPkJpcnRoIERh rKZ9RB12WT30xJSdt8T7 jNV9I9PxBPEacbed mirsmZW1NTReGKKimH20 Rc7jkIyxOc9tWRBsTAZ3 DTIolOZhQ0PefF7qUuYl HONlRSSnT7FtoBPy IRhyR954HXvqPtL3JEWw uePpB0HmKLStsAroPhU2 h7C6Lb5NK6G2GQ33CO88 iVHfc6G2hZT6F7An HSRsofeevmbwqXL9XPBf OUZgzN58Pe7plNsbYq3v QJXgUEQ5JARsyRZkJ7Wv xA1jYoDjMIMgGFRd Z8VntTBmOGgjW229OKsg JuY4OORlisDuR7IuJCSe hZaiNhS7c3N6Lq9DUSa7 QO85KW13kRVtf6G6 sYW8E9ChCSDnebeqmriw bVE7NQNjFXEzdU65Ma4p qHygIx9wVFAxWXG0ZWKx iEHmO2TlsK3vHqBl OQRvVYSxG7NsaCAlNRhy G674WOpmMhE1QCRjuzBr Q7EbTMPxbZumSoH1a3J5 Yb1YPNXlMR73NYV5 kWZ7PY79KP15W6NmOmmj dGFibGU+PHRhYmxlIHdp ZHRoPScxMDAlJyBzdHls ED0hWx3nVTZvGVNe xZnxqEHrQdGop7xpRNEv KGfsBR4hiDyfK1EkwWN5 FUDwf9o7Vv45B28wS9Qt dXA+WNUmaFF2gUD6 uP0cQvWlPgE9AJaiV933 CiCaoRLeIwior4ysu8jh hDv0KoZ9DOCzwoPxiRmh FVK2h3YbYf86K05p IHdpZHRoPSIxNSUiIHZh tWqkyr8lyH2jHl3+PGNv vWV5uGR6qM7fDeMuJkI9 LJypG019CeTnpGUk Tcdeg8tbt5olrSt1TeTg RWVuryGcmFbsZFQ1j1Bx El99K3ZpdGkqk4CnSvh0 lc47lSWni1K1uRY9 F2EoSOAoryeqbBTrhWvi HJ2kJVXuniscGPCteJ5o TXLfY9p4HnYyVdL2SYaa V8CfeaP6CNEcqRPg OVsaKTG4U55zd5V6RBHq ZICwADH6gMD0nG3fuSsy bjogbGVmdDsgdmVydGlj JXfeJQddK740JUXj aDomLMEdaA6kFJHazHQf eYabNZ8gEQWitexhDlLE UlVOSywgUklDSEFSRDwv dGQ+APDjKZC8jPkt WXojETJwjT7sRDCpC2r2 YiVdAnZ0CVcyF4KoAPJw odenSj45iE9wRhAvKdR3 CDewU3IzxgF5EWWu zIUoBLrfEPS1O19cx9S1 YHFwVBZnONX2bON3rJ6b bGlnbjogbGVmdDsgdmVy lHfhKModHVvvT262 ZKKxhEndIhY4XfU3PcR9 Kgu7G7FlBor8MJQfyTra CP8ohYZfBOmdEo6svIhq nIczRO3cGZRgjspp YSDyiI9yZACreIAfdGrx TR6bVSAvqdbip604MoFi SJP1URPvhUOjC6CefT4u IuOhJIXlNTIpG8Wh pQTdUEbvT600FNhaPdG4 SANhpdUdH3IuGSZntHso TaY2b2A0Ak91YOZDRTPm czwvdGQ+PHRkIHN0 qJcvQDxfIBVusJ4rRSJl N4f8JsHcGoO8RVhwA0As ZMIqtvliVb82rC0oEjWo LsO1TYugV1IaytB1 DBGlbPOxJSnkAMQ0Z52o j5J0GKRtLWQdYUT8eOP9 fA2cnWutapfrxCJekAjd dmVydGljYWwtYWxp C472DUCeiXauAh6gmLU0 W3PnKcp0LCAahCnkGQ0l bWRrBFpmDf4htKvrzZlm CX2dYKRyomrnEQBl wN7kSPHzlONjyHwbMD1g BQUxhoqyl525TfAbARA3 FWSupRFuJ3ZksX4gBwDl RQFtWBNrU9JdsKVw EPclO202SFwrDzR7MMIb spTjS7WiMJQuySisAhV2 a9G2He5JHYW2hxFbujs7 G9BjCjqzuHT+PC90 DFMhLL52rFCibDYzq1mj dUq1MiOsFYQzOBF7uYyt FKrhk2HmMLLzH37srXLm x3M2QIVxwTemqWUr QvUbgWM4iH1nBOoxtrfp z9hfyzgsYopnr1zrxm97 bX62Y67bWQphHDBiKOFi GRKeDPYotMahgv5a eY3kJb7+KVXbhZK8eLM3 uO4eVrUyYxF0CYojG564 OhOqbWXjSjvzt5bxu4ri hIi2LgZkROLmqgFw gOysLFZ2n7VwJt63D88k IHdpZHRoPSIyMCUiIHZh rPrzas3fjI9jIs7+PC9j m7okje64jI01vPD+ TZKqTHJ2sHkkGNjgEQCs oB6jASptOrH7AIUqSlRl nP39oGCyPSsuFs5bvJew cZyyOS9oCTWatfib f042RgQjn6gxPQKbvMTe WGahCGW5Y26cf5N1FQDz OTDuNCU9xIE7rL9ddPsl bjogbGVmdDsgdmVy vChrEQlbACzqB646KZKh nOgpJmLhxELvL1dwibBU OT7rQhgovVN+PHRkIHN0 bYwcULhlSZCwaF0h ZIRiB0t6SaDcXkD2CRny J8RvobW0YHOvqLCnXWGe jAFWdB7sernuy1yulbyz NgHnJJIhEKs9PNw1 EWKnhDptPeOeJAN7MxA0 WYK4gHFjtF7jsWtcebfu pJ1rInb+RklOOjwvdGQ+ QFBkKBX6kOnrUDes QYNdkF3sDLUsC7x2QfUv GeG2HIbhW0XkwuX3YCOn wKJaSRZmoIKSiV9hqiat j7bliimkIvNmNARd JLv0MAq9WIFdrGlfUcUh PVB8WmL2RUI9zXNkaJ0l eKvyucrloO3lClm+TVJO OjwvdGQ+PHRkIHN0 iNdbQVjjGINptT5lQZEk Z9t3NbNpRqM7WAoqI0Lj maN6DIDudHFpFGLjkFCF aM1bwldaf4grwyub YdFvTGIjLXy3MKl6BXPp qPnjFhWxYYP3OpY2WVZ8 lLMtgY4qmThxxxmjcT6f Oyc+WMP3KKY4AE75 BV65I2FhGctlsODbfEP+ PHRhYmxlIHdpZHRoPScx PDAkJqOkyPuiKK9mEv3f ZGVyLWNvbGxhcHNl OiBj (more content not included)... Normal [facility] NM PET w/ CT Scan Skull Base to Midthighon 11-11-2022 NM PET w/ CT Scan Skull Base to Midthigh Exam Date/Time: 11/11/2022 07:34 EST Reason for Exam: C34.90 Report iMPRESSION: FDG AVID RIGHT LOWER LOBE NODULE. 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 FURTHER TISSUE SAMPLING RECOMMENDED. POSSIBLE RIGHT HILAR AND PARATRACHEAL ADENOPATHY EXAM: PET Scan REASON FOR EXAMINATION: NM PET w/ CT Scan Skull Base to Midthigh right lung nodule. Further PET/CT characterization RADIOPHARMACEUTICAL: 13.4 F-18FDG. TECHNIQUE: Following intravenous injection F18-FDG and an approximately 70 minute uptake period, low dose CT and PET images of the whole body from the base of the skull to the mid thigh on a dedicated PET/CT unit with the patient in a fasted state. The CT protocol used for this PET/CT study is designed for attenuation correction and anatomic localization Using the strategic communications manager\X2019\s standard software, data were reconstructed using filtered back projection with and without attenuation correction. A low dose, noncontrast CT provided attenuation correction and anatomic localization of PET abnormalities. This rides attendant CT is not designed to produce, and cannot replace, ytiso-lp-ghu-art diagnostic CT scans with specific imaging protocols for different body parts and indications. The patient\X2019\s baseline plasma glucose at the time of the test was 113 mg/dl. The standardized uptake values (SUV) are normalized to patient body weight and indicate the highest activity concentration (SUV max) in a given site. SUV may be used for reference purposes on this exam but caution should be advised in using an SUV to differentiate a malignant from a non-malignant process. COMPARISON FDG PET/CT: NONE OTHER STUDIES USED FOR CORRELATION: NONE FINDINGS: Neck: The distribution of FDG throughout the neck is within normal limits. . Chest: Solitary 3 cm nodule in superior segment right lower lobe is FDG avid with maximum SUV of 4.0. There are no additional FDG avid parenchymal lung nodules. Mild FDG uptake in the right paratracheal and right hilar lymph nodes. These are suspicious for possible malignant lymph nodes. Mild FDG uptake in the left breast subareolar tissue possibly secondary to gynecomastia. Clinical correlation suggested. Report Abdomen-Pelvis: The distribution of FDG throughout the abdomen and pelvis is within normal limits. Physiologic activity is noted in the liver, renal collecting systems, bladder and GI tract. Bones: Focal uptake in the left femoral head corresponding to a sharply marginated cortical defect likely related to previous surgery. Clinical correlation suggested. Otherwise There is normal distribution of FDG throughout the bony skeleton with no signs of metastatic bone disease. FINAL REPORT Dictated: 11/11/2022 8:12 pm Miguel Santos MD Signed (Electronic Signature): 11/11/2022 8:12 pm Signed by: Miguel Santos MD Transcribed by: ESTEE Technologist: MIRZA Technical Comments Dose (mCi F-18 FDG): 13.4 Imaging Post Administration (mins): 50 Normal [facility] RAD - MISCon 11-11-2022 RAD - MIS [id number] 2#1.00CD:127 Normal [facility] Coding Summary.on 11-10-2022 Coding Summary. CD:[id number] Gh0bWw+PGhlYWQ+PE1FV JSqY41ivTEyhM5JU6cUR H7SBUGRBTZOBF3XNO3zj MR6KLttQ3LebqXx ApebdNAhQF88UMw2QRF8 vYrxTMphmY3zgJAvV3f6 BdLfKF50sW02TQorBLYn EkT6HfIxcicvtXCl A8nzLoJmxUGxRdv+PHRh YmxlIHdpZHRoPScxMDAl JqLtxIspBO8eYo3aUFWd LWNvbGxhcHNlOiBj m6jiDWPlLUbwNA4axEqo J5MmrLQ5VNXve2u2Kw77 dHI+CDBuSAD6eTwvOAio m813OfBww0cjYXD6 sGKbIGacJVT7E72kz9Z1 BUHmZVVdXWP9qST1vS2h xYlygalmJ5WibVLpGsT2 LPM4lLLibO4lcSuq lkqytZ4sRdq+M73PHO2V ZQURWX9SRar9J0BsOhqj dHI+QM92EQHvYE55gXBh kWCaw0mtmRh8IyZz UOYkARH5yZvgXJwrr9Wk EEHjG54wnQTrx6S2YDJj tLczoLHqOtYlwBG9pW2w EQjqwuope9dihjjv Clubx8rqcv15vP75R00q AWeyFXHxTZW5AOZpFWFs tNzidy1oqP9jKh7+IDxj h4yrz3gyqBb6FnAp XEAtpvHolPfrAOD6w1Mg Bg41F7LddDccb5MrRqd8 ri94iPQhw2W5qXR7CSqu QWIszC8kZVuePyB1 TMRcCaSfrM19mVCaGGpw Cp3kvWgmxMyrCU8gUFJk ehhqSJMlnH1yMAIldKGx cIkhFU3dIYCqapsv k367VgKbFXP5SITjeYLb P6LkpE3dVzSwOXLaTKZj Q9OmgPIwVQluE076KMtt AvI0VZSxofFtB6Pc VPOggUtkKfY3f2C9Ma1A r0TlfbflJTM5ELxpLTQk AmEsJkJxHkF2M4YpHts1 YMQtcIcyER5iH6Yf JXPkxetrqzutcCA1ENTl LHLdiW57tHUrBOqtHd4o s5R6o164FIIfOMQzjM22 Pp5zgHgcLOCgrBQN uU8mdgvhq2imtphrWnEt UORjBQd7KSz5BQOzfXdb EpNzZTJ4PtK7NDM1iELv sJ6eyTeahwxzkV1h Oyc+T65doK8qJFL4LLO2 sipiXCJrafFiPV28SR71 V1IpEmgdbIKpkFF+PGRp ocOxdIxmFU2gAhNi z4cwi2OiHUjrM2BzLXBp ZSglCbv7ZBMxSCA4qOU2 hS8iGQAnRGfcb5X7tYC6 P4BlwmIbkv1xx0pu EUKjYAifR72grUAoj8K7 HIOnsVK2HMCfsWnfPpSi wI22Cjb+KVRqdJuoh0Xf Eccst4wno9auuKt4 IjMwJSIgdmFsaWduPSJ0 i2VlRp19A56aZPsmYQZc VILeNFBoNMRtwFtacg8t nC3jZf2+PGNvbCB3 oDJ2sC5jHBAnDeT5DKrv U627OuEoeAIyNnsnj4lm o8ybaUl5IwIwOGMputHd zWujIRN1q7YoFl45 L40uBCgiKFQsPTPnOQNt HGNzhYdolp3mzY3qPz8+ SQ1ql0sygu53rE81qII+ AOXcVBQ8bKyySOue OLXxgY7fOAnjRzT5QQTp EySzfC63aRNxPYnrBb2p rKecjHmyXH4iGFAovbex m167FzCpk6cpENJx uRHqEHeoJAZ6Z58mr9I9 VFEoFJWjGHX8eFI7rH8q bGlnbjogbGVmdDsgdmVy qBwkKRkvSPtwT162 IHRvcDsnPlBhdGllbnQg OjPaLFo1I7GxHcq8XBTn lAtoDN6ijIGjBBwsSn0j bEnayZroWQ2oTHSl ydhdd559WqDdv9tnYRHt sKZsRNphKUH1Z89xw0R8 RUJcUKTkQUO0eGF1uJ9d bGlnbjogbGVmdDsg loHnoUxzLZwqYTruK812 IHRvcDsnPkJpcnRoIERh vDS0CW44YT44uBYgx1Z2 kBM7M6TpMHMicjbm ykzpiUQ0OSSyNVIlaF04 Rf3hsTfjQo1bHRBcVBQ5 FIWwbJCeO4RyoY0tKjLh YAJkAYBvY5BobWGv PIvhK840NXuuHqI4YZPj dxOrH1QwOMBhzZyeEmC4 u6W3Vo6MG7G8MX15WX31 bWTvm4N5vFQ0Y5Ab JBOqagsxoukdcGL7CWIk MKSyeO16Pw6oySvbLo3i NTVzUGO9NFVneNBoR6Dh tJ7rXhPcFWQfGZYi Q4YzuUArIEdmL964THxj BhM2JUDxnqQkT3JiZMHd lKweKpZ5p8F8Ep4NCIk0 TZ23HN11pJPba3O4 zNT7V8YdJBQpqqonwket vJK1EMFbBKGwdA69Gz7s kXfyVt8lVXCbOZA6AQYz xMYqF8SfjL7wQnFp CWHrZIYlR2RjkDCoSUmk D795VOsaYaI6MAEpvbKw K8QwIFQriVmjByT1l8A7 Ql2LXVWkDP64OHN7 aOA8BQ53UP42Y6VnIlls dGFibGU+PHRhYmxlIHdp ZHRoPScxMDAlJyBzdHls KQ8rFw8uXDZcFSUn uCksaBQrLbIzs9ypBPAj MLdzSU8sxYpqH2DnrIP0 EJOft3m0Lh89J17gT3Tq dXA+DDHihKV5wBF3 nZ8eWrFoXjX3CZvgL614 LzQwfNAlIatnx4pgo6ma tCr1ClE1SHTqxfXspXke FSG5e5NzHl70E60n IHdpZHRoPSIxNSUiIHZh xIysig0vcN7qUm7+PGNv eMQ8yDK7pP3iUtFoAgF2 BOmdL794NmEcnTRb Zzmiw5htn9dfiOz1CpBl FRAlibFydMfyDWN1b5Fg Dq30Q8PkuFfgk7WhWqg5 bh94hVFaw4G7vPP7 N4XaEMTaiamdfGZrqNws EA2jORYjpmliQAChyE0w MEDiW3c3VyCgDrD4LZbe C2JhxaP4GCUzrSCw PLjnLMN9T89mt1C8TISf ZFLlBWQ6uUW5sC2neLkr bjogbGVmdDsgdmVydGlj PBizLQwnR421AZZb vPpcDHNgaB8sWGRtjJRe rEgfDD2tHUWqipjdZjCY UlVOSywgUklDSEFSRDwv dGQ+OHEuYJG8vEtt GXlcKSSbkO2oSYShJ4u7 LuMyPnD0ELxhB7IeULJf exfyDh28jO4dYaJkRdA0 HQxsB6OtbzY2SSWk tLHaHPowDSE2Z15om9S5 TFHgZTPaRXB9dXV5vG5s bGlnbjogbGVmdDsgdmVy eCknMCkuKIttI687 CZQraNnaVoN2FiC7TbL6 Pqw0O6KgNdd6EMUvmZoc UJ0kmBFaGOqhSv8sfFpq iYafEB9iMRExyind IIUlxH9cLHEbrEBctCes WD5rASHepirgs492CsTo EXJ5ENSmxERaM0KvyC4t SiRpZPDmNBKbT0Tf oEUsTIwvA629KNqfDkB1 SOKfrtBjC7UyBNLjtFeh NcU6x8B8Zp96DASDCLKw czwvdGQ+PHRkIHN0 eOymILnkFGKegH1bORRi D9z3QcCaFcA1BTgqY5Em FFQnmqehUb30uY6xTrXl HkC4ITtcD6FfdlR7 OVNmgPOmSIvrRRT9C73f c3X3WEQeBTHcQCB7jXV8 dA0tdGwlabtxoVKqsEvq dmVydGljYWwtYWxp O730NYWdjRgwUq2xzBI6 K6SeLhr2BXQixFzjHS0j wCOpTFafEy5syTlfkKel MB6xAGDlkcsfVUNq wS1lPOFggKQhlPfoPQ0d SZNrqgvsz764TtBfPNK3 TSPejMOyB8UxaI8wSjCf MMZvMMNhU1YqzIFz WVzjA417IAthWiO4QRYz lkUqL6GaPCEklMlcTdW4 y1W2Hz5LzYNnITVgAR80 EX65KH66K8XsWmat dGFibGU+PHRhYmxlIHdp ZHRoPScxMDAlJyBzdHls EQ8pKe9cCUTsNEXeoPxo sMNoMrBpl3rkRTTn ZIquLJ1tzYldB2NrkSS0 ZJZol6w5Fk28Z02tK5Gs dXA+TCIotQL9zAS9rN2n VeXqOcC8TQdbX316 AwBflFHnLcndq5cnb7ld jLc6TbLnPOZdehOxwBtr OUC3a5SxEs38D76mDCvb ZHRoPSIyMCUiIHZh nLdtli5yqR5aPy1+PGNv hCZ6wYQ1vM8fNjDsToP8 BDekU951IhFhiHUoTuyx Q66mN8PsnUI+PHRy Ppi8OAJyaTemLE1cwXAj WGirAd4mMIT8SeSySbKv YFyqQ7DkHAZiriflofsn sZE4IJYbDONtmQ36 Zw3taDsxLm4wPHVyKHW9 TFVmcOQfG4RtyL7fAsWv OSKyXNBxB7SctHTxLEuz V813MCduXbN8ZREc qsBhQ4YkTVZglOlxKjW5 t9O2Se9RjUxxdYZhYA9h WeKbZQx0T1HsNsh9WVBu gAswID5oeZMaQDdw Wj5nzEovbFgvEK9kSAUy ugezp988WtUke6bcOTWf aORxYNziXIG6V78px5Q8 ZYVuASYhWET2bWT7 bE8zjXepjwefrOElvMnb nyJbxOimEVevERllL650 JJNysEykCxSQSux3J0Ud Vzr8QQMcsGxkNK9s uNGfAJlvRy5gsJdqhHbg TY4fKSLjjfkjz885RhDi x2gaMRTutJIxTPreRET5 R17lw9B2OCQlYXXw USW9qCR3uQ0saExbjozz bGVmdDsgdmVydGljYWwt DDesD535KAAyzHrdFl4E Mrd1K4UxPpz4SHRd lXqxNN8siIFsBRqxKi3u eEewzNfnZL5gKMEzaukt z654PqGoc9uzGVTpyGSf TYlkDMG1B92ld2F0 UDNhXORlQPN2oCF9xG7f bGlnbjogbGVmdDsgdmVy vMvdBNugKVlxC805YZHq cDsnPlBheWVyOjwv dGQ+JR65ml46I8UpVtdi Jlc9GZLaBND2zIO1xK2r PONyUDstx1R7nHR9Q0So fhAqnj8ct0lmJKLj ZTog (more content not included)... Normal [facility] Consent for Treatmenton Consent for Treatment [id number] #1.00CD:127 Normal [facility] MG MAMM DIAGNOSTIC 3D REYNALDO CA Don 11-09-2022 MG MAMM DIAGNOSTIC 3D REYNALDO CAD Patient: MIGUEL AWAD Exam Date: 11/09/2022 : 1965 Gender:M Ordering : DR BOB LEZAMA . Admission #: [id number] Family : Order #: [id number] CLICK HERE TO VIEW EXAM RADIOLOGY REPORT PROCEDURE: MAMMOGRAM DIAGNOSTIC 3D BILATERAL CAD, 11/09/2022, 13:47 ULTRASOUND BREAST LEFT LIMITED, 11/09/2022, 14:22 COMPARISON: MG MAMM REYNALDO DIAG W CAD, 08/06/2020. US BREAST RIGHT LIMITED, 08/06/2020. INDICATIONS: Benign mammary dysplasia Calculator Name NCI Breast Cancer Risk Assessment Tool 5 Year Breast Cancer Risk Not Applicable. Lifetime Breast Cancer Risk Not Applicable. Personal Breast Cancer No Personal Ovarian Cancer No Treatments None Family Cancers Grandmother-paternal with lung cancer at age 56. LOCATION: [facility] BREAST COMPOSITION: Scattered areas fibroglandular density. FINDINGS: DIAGNOSTIC CATEGORY 2--BENIGN FINDING: RIGHT BREAST: Mild stranding within the anterior breast tissue, scarring versus residual fibroglandular tissue. Significant improvement compared to prior study. LEFT BREAST: Large area of increased density within the subareolar region suggestive of gynecomastia. Ultrasound evaluation demonstrates fibroglandular tissue within the anterior left breast, consistent with gynecomastia. No mass or cyst. RECOMMENDATIONS: CLINICAL EVALUATION. PLEASE NOTE: A NORMAL MAMMOGRAM DOES NOT EXCLUDE THE POSSIBILITY OF BREAST CANCER. A CLINICALLY SUSPICIOUS PALPABLE LUMP SHOULD BE BIOPSIED. Dictated by: Baltazar Ron M.D. on 11/09/2022 at 14:55 Approved by: Baltazar Ron M.D. on 11/09/2022 at 14:58 Normal [facility] Physician Orderon 11-09-2022 Physician Order [id number] #1.00CD:127 Normal [facility] US BREAST LEFT LIMITEDon US BREAST LEFT LIMITED Patient: MIGUEL AWAD Exam Date: 11/09/2022 : 1965 Gender:M Ordering : DR BOB LEZAAM . Admission #: [id number] Family : Order #: [id number] CLICK HERE TO VIEW EXAM RADIOLOGY REPORT PROCEDURE: MAMMOGRAM DIAGNOSTIC 3D BILATERAL CAD, 11/09/2022, 13:47 ULTRASOUND BREAST LEFT LIMITED, 11/09/2022, 14:22 COMPARISON: MG MAMM REYNALDO DIAG W CAD, 08/06/2020. US BREAST RIGHT LIMITED, 08/06/2020. INDICATIONS: Benign mammary dysplasia Calculator Name NCI Breast Cancer Risk Assessment Tool 5 Year Breast Cancer Risk Not Applicable. Lifetime Breast Cancer Risk Not Applicable. Personal Breast Cancer No Personal Ovarian Cancer No Treatments None Family Cancers Grandmother-paternal with lung cancer at age 56. LOCATION: [facility] BREAST COMPOSITION: Scattered areas fibroglandular density. FINDINGS: DIAGNOSTIC CATEGORY 2--BENIGN FINDING: RIGHT BREAST: Mild stranding within the anterior breast tissue, scarring versus residual fibroglandular tissue. Significant improvement compared to prior study. LEFT BREAST: Large area of increased density within the subareolar region suggestive of gynecomastia. Ultrasound evaluation demonstrates fibroglandular tissue within the anterior left breast, consistent with gynecomastia. No mass or cyst. RECOMMENDATIONS: CLINICAL EVALUATION. PLEASE NOTE: A NORMAL MAMMOGRAM DOES NOT EXCLUDE THE POSSIBILITY OF BREAST CANCER. A CLINICALLY SUSPICIOUS PALPABLE LUMP SHOULD BE BIOPSIED. Dictated by: Baltazar Ron M.D. on 11/09/2022 at 14:55 Approved by: Baltaazr Ron M.D. on 11/09/2022 at 14:58 Normal [facility] Progress Note-Physicianon Progress Note-Physician Spoke to patient regarding his abnormal CT scan results. His actually reviewed the results last night on the portal and they were going to call primary care doctor this morning to schedule an appointment. I also verbally went over the results and told him to follow-up as soon as possible and schedule a PET CT scan to make sure that there is a follow-up and treatment done for this. Patient's primary care provider not available for communication via [facility] system. Normal [facility] Comment on above: Result Comment: Elec tronically Signed By: Shahzad BLACKBURN MD\.shukri\Date and Time Signed: 11/08/22 07:[address] Chest w/ Contraston 11-07 CT Chest w/ Contrast Exam Date/Time: 11/05/2022 16:47 EST Reason for Exam: Pneumonia, effusion or abscess suspected, xray done;Other (please specify) Report IMPRESSION: NO SIGNIFICANT CHANGE IN 1.4 X 1.7 CM RIGHT LOWER LOBE NODULE. NODULE HOWEVER IS WORRISOME FOR MALIGNANCY. DIAGNOSTIC STUDIES SUCH PET-CT OR TISSUE SAMPLING ARE RECOMMENDED. IF SUCH STUDIES ARE NOT CLINICALLY INDICATED OR FEASIBLE, LOW DOSE CT CHEST IS RECOMMENDED IN 3 MONTHS. EXAM: CT Chest w/ Contrast INDICATION: Follow-up of lung nodule Pneumonia, effusion or abscess suspected, xray done TECHNIQUE: Helical CT was performed through the chest with 100-mL of nonionic contrast administered intravenously. COMPARISON: 09/25/2022 FINDINGS Lungs: There is a persistent nodule superior segment of the right lower lobe abutting the pleura, measuring approximately 1.4 cm x 1.7 cm in its axial and sagittal dimensions which is unchanged in size from the previous exam. Nodule remains lobulated with some minimal persistent surrounding micronodularity/grou ndglass opacities. While the interval since the previous chest CT (6 weeks) is relatively short, the lack of resolution and continued lobulated appearance of this nodule raises concern for malignancy. Recommendations for follow-up based on Fleischner guidelines for management of pulmonary nodules with these features include PET-CT or tissue sampling. If such studies are not clinically indicated or feasible, low-dose CT chest is recommended in 3 months. Incidental note is made of multiple tiny primarily subpleural micronodules in the 1 to 2 mm size range bilaterally. Current guidelines recommend follow-up CT in 12 months, however management guidelines in this patient should be based on the previously discussed more suspicious nodule. Pleura: No pleural effusion or thickening. Mediastinum: Persistent prominent right paratracheal and hilar lymph nodes. Vascular structures: Persistent aneurysmal dilatation of the ascending thoracic aorta with maximum transverse 4.3 cm. Chest wall: Incidental gynecomastia of the left breast. The chest wall and lower neck are otherwise normal. Upper abdomen: The visualized portions of the upper abdomen are unremarkable. Bones: Osseous structures are normal. Report All CT scans at this facility use dose modulation, iterative reconstruction, and/or weight based dosing when appropriate to reduce radiation dose to as low as reasonably achievable. FINAL REPORT Dictated: 11/07/2022 1:22 pm Miguel Santos MD Signed (Electronic Signature): 11/07/2022 1:22 pm Signed by: Miguel Santos MD Transcribed by: ESTEE Technologist: FADY Technical Comments GFR (mL/min/1/73m2) age Contrast: Isovue 300 Contrast amount in ml's: 100 Normal [facility] Consent for Treatmenton 10-11 Consent for Treatment [id number] #1.00CD:127 Normal [facility] Pre-Certification Formon Pre-Certification Form [id number]# 1.00CD:127 Normal [facility] CHEMISTRYOrdered By: SYSTEM SYSTEM on 09-28-2022 Anion gap [Moles/Vol] 12 mmol/L Normal 6 - 16 mEq/L [place] [facility] [place] Calcium [Mass/Vol] 8.3 mg/dL Low 8.9 - 11. 1 mg/dL FT Remisol Chloride [Moles/Vol] 100 mmol/L Low 101 - 1 11 mmol/L FT [facility] CO2 [Moles/Vol] 24 mmol/L Normal 21 - 31 mmol/L FT Remisol Creatinine [Mass/Vol] 0.6 mg/dL Normal 0.5 - 1.3 mg/dL FT Remisol GFR/1.73 sq M.predicted among blacks MDRD (S/P/Bld) [Vol rate/Area] mL/min/1.73 m2 Normal >=59mL/min/1 .73 m2 [facility] [place] Chem S GFR/1.73 sq M.predicted among non-blacks MDRD (S/P/Bld) [Vol rate/Area] mL/min/1.73 m2 Normal >=59mL/min/1 .73 m2 [facility] [place] Chem S Glucose [Mass/Vol] 133 mg/dL Normal 55 - 199 mg/dL [facility] Potassium [Moles/Vol] 3.9 mmol/L Normal 3.5 - 5.3 mmol/L [facility] Procalcitonin 1.69 ng/mL High 0.00 - 0.50 ng/mL [facility] Sodium [Moles/Vol] 132 mmol/L Low 135 - 145 mmol/L [facility] Urea nitrogen [Mass/Vol] 14 mg/dL Normal 5 - 21 mg/d L [facility] Urea nitrogen/Creatinine [Mass ratio] 23 mg/mg High 10 - 20 [facility] Remisol HEMATOLOGYOrdered By: SYSTEM SYSTEM on 09-28-2022 Basophils/100 WBC (Bld) 1.0 % Normal 0.0 - 2.0 % [facility] Basophils/Leukocytes Auto (Bld) [Pure # fraction] 0.1 E9/L Normal 0.0 - 0.2 E9/L [facility] Eosinophils/100 WBC (Bld) 1.4 % Normal 0.0 - 8.0 % [facility] Eosinophils/Leukocytes Auto (Bld) [Pure # fraction] 0.2 E9/L Normal 0.0 - 0.5 E9/L [facility] Lymphocytes/100 WBC (Bld) 11.4 % Low 14.0 - 50.0 % [facility] Lymphocytes/Leukocytes Auto (Bld) [Pure # fraction] 1.4 E9/L Normal 1.0 - 4.0 E9/L [facility] Monocytes/100 WBC (Bld) 9.9 % Normal 4.0 - 14.0 % [facility] Monocytes/Leukocytes Auto (Bld) [Pure # fraction] 1.2 E9/L High 0.2 - 1.0 E9/L [facility] Neutrophils/100 WBC (Bld) 76.3 % High 36.0 - 75.0 % [facility] Neutrophils/Leukocytes Auto (Bld) [Pure # fraction] 9.6 E9/L High 2.0 - 7.5 E9/L [facility] HEMATOLOGYOrdered By: Marin Walton on 09-28-2022 Erythrocyte distribution width (RBC) [Ratio] 13.7 % Normal 10.9 - 14.2 % [facility] Hematocrit (Bld) [Volume fraction] 37.6 % Low 37.7 - 49.0 % [facility] Hemoglobin (Bld) [Mass/Vol] 12.8 g/dL Low 13.5 - 17.5 gm/dL [facility] MCH (RBC) [Entitic mass] 28.9 pg Normal 27. 0 - 34.0 pg [facility] MCHC (RBC) [Mass/Vol] 33.9 g/dL Normal 31.4 - 36.0 gm/dL [facility] MCV (RBC) [Entitic vol] 85.1 fL Normal 80.0 - 100.0 fL [facility] Platelet mean volume (Bld) [Entitic vol] 7.7 fL Normal 6.4 - 10.8 fL [facility] Platelets (Bld) [#/Vol] 260.0 E9/L Normal 150. 0 - 500.0 E9/L [facility] RBC (Bld) [#/Vol] 4.4 E12/L Normal 4.3 - 5.9 E12/L [facility] WBC corrected for nucl RBC Auto (Bld) [#/Vol] 12.5 E9/L High 4.0 - 11.0 E9/L [facility] Comment on above: Result Comment: Jocy e reviewed by MLB. CHEMISTRYOrdered By: SYSTEM SYSTEM on 09-27-2022 Anion gap [Moles/Vol] 9 mmol/L Normal 6 - 16 mEq/L [facility] Calcium [Mass/Vol] 8.0 mg/dL Low 8.9 - 11. 1 mg/dL [facility] Chloride [Moles/Vol] 102 mmol/L Normal 101 - 1 11 mmol/L [facility] CO2 [Moles/Vol] 24 mmol/L Normal 21 - 31 mmol/L [facility] Creatinine [Mass/Vol] 0.9 mg/dL Normal 0.5 - 1.3 mg/dL [facility] GFR/1.73 sq M.predicted among blacks MDRD (S/P/Bld) [Vol rate/Area] mL/min/1.73 m2 Normal >=59mL/min/1 .73 m2 [facility] Chem S GFR/1.73 sq M.predicted among non-blacks MDRD (S/P/Bld) [Vol rate/Area] mL/min/1.73 m2 Normal >=59mL/min/1 .73 m2 [facility] Chem S Glucose [Mass/Vol] 129 mg/dL Normal 55 - 199 mg/dL [facility] Potassium [Moles/Vol] 4.1 mmol/L Normal 3.5 - 5.3 mmol/L [facility] Sodium [Moles/Vol] 131 mmol/L Low 135 - 145 mmol/L [facility] Urea nitrogen [Mass/Vol] 19 mg/dL Normal 5 - 21 mg/d L [facility] Urea nitrogen/Creatinine [Mass ratio] 21 mg/mg High 10 - 20 [facility] HEMATOLOGYOrdered By: SYSTEM SYSTEM on 09-27-2022 Basophils/100 WBC (Bld) 0.5 % Normal 0.0 - 2.0 % [facility] Basophils/Leukocytes Auto (Bld) [Pure # fraction] 0.1 E9/L Normal 0.0 - 0.2 E9/L [facility] Eosinophils/100 WBC (Bld) 1.4 % Normal 0.0 - 8.0 % [facility] Eosinophils/Leukocytes Auto (Bld) [Pure # fraction] 0.2 E9/L Normal 0.0 - 0.5 E9/L [facility] Lymphocytes/100 WBC (Bld) 7.0 % Low 14.0 - 50.0 % [facility] Lymphocytes/Leukocytes Auto (Bld) [Pure # fraction] 0.9 E9/L Low 1.0 - 4.0 E9/L [facility] Monocytes/100 WBC (Bld) 5.9 % Normal 4.0 - 14.0 % [facility] Monocytes/Leukocytes Auto (Bld) [Pure # fraction] 0.8 E9/L Normal 0.2 - 1.0 E9/L [facility] Neutrophils/100 WBC (Bld) 85.2 % High 36.0 - 75.0 % [facility] Neutrophils/Leukocytes Auto (Bld) [Pure # fraction] 11.2 E9/L High 2.0 - 7.5 E9/L [facility] HEMATOLOGYOrdered By: Cammie Douglas on 09-27-2022 Erythrocyte distribution width (RBC) [Ratio] 13.3 % Normal 10.9 - 14.2 % [facility] Hematocrit (Bld) [Volume fraction] 37.1 % Low 37.7 - 49.0 % [facility] Hemoglobin (Bld) [Mass/Vol] 12.7 g/dL Low 13.5 - 17.5 gm/dL [facility] MCH (RBC) [Entitic mass] 28.9 pg Normal 27. 0 - 34.0 pg [facility] MCHC (RBC) [Mass/Vol] 34.2 g/dL Normal 31.4 - 36.0 gm/dL [facility] MCV (RBC) [Entitic vol] 84.4 fL Normal 80.0 - 100.0 fL [facility] Platelet mean volume (Bld) [Entitic vol] 7.8 fL Normal 6.4 - 10.8 fL [facility] Platelets (Bld) [#/Vol] 250.0 E9/L Normal 150. 0 - 500.0 E9/L [facility] RBC (Bld) [#/Vol] 4.4 E12/L Normal 4.3 - 5.9 E12/L [facility] WBC corrected for nucl RBC Auto (Bld) [#/Vol] 13.2 E9/L High 4.0 - 11.0 E9/L [facility] CHEMISTRYOrdered By: SYSTEM SYSTEM on 09-26-2022 Anion gap [Moles/Vol] 12 mmol/L Normal 6 - 16 mEq/L [facility] Calcium [Mass/Vol] 7.7 mg/dL Low 8.9 - 11. 1 mg/dL [facility] Chloride [Moles/Vol] 102 mmol/L Normal 101 - 1 11 mmol/L [facility] CO2 [Moles/Vol] 21 mmol/L Normal 21 - 31 mmol/L [facility] Creatinine [Mass/Vol] 1.1 mg/dL Normal 0.5 - 1.3 mg/dL [facility] GFR/1.73 sq M.predicted among blacks MDRD (S/P/Bld) [Vol rate/Area] mL/min/1.73 m2 Normal >=59mL/min/1 .73 m2 [facility] Chem S GFR/1.73 sq M.predicted among non-blacks MDRD (S/P/Bld) [Vol rate/Area] mL/min/1.73 m2 Normal >=59mL/min/1 .73 m2 [facility] Chem S Glucose [Mass/Vol] 121 mg/dL Normal 55 - 199 mg/dL [facility] Potassium [Moles/Vol] 4.2 mmol/L Normal 3.5 - 5.3 mmol/L [facility] Prealbumin IA [Mass/Vol] 8 mg/dL Low 17 - 42 mg/dL [facility] Sodium [Moles/Vol] 131 mmol/L Low 135 - 145 mmol/L [facility] Urea nitrogen [Mass/Vol] 25 mg/dL High 5 - 21 mg/d L [facility] Urea nitrogen/Creatinine [Mass ratio] 23 mg/mg High 10 - 20 [facility] COAGULATIONOrdered By: Indira Calvillo on 12-18-2022 aPTT Coag (PPP) [Time] 34.0 s Normal 25.1 - 36.5 second(s) [facility] INR Coag (PPP) [Relative time] 2.2 {INR} Invalid Interpretation Code [facility] PT Coag (PPP) [Time] 25.0 s High 9.4 - 1 2.5 second(s) [facility] HEMATOLOGYOrdered By: SYSTEM SYSTEM on 09-26-2022 Basophils/100 WBC (Bld) 0.4 % Normal 0.0 - 2.0 % [facility] Basophils/Leukocytes Auto (Bld) [Pure # fraction] 0.1 E9/L Normal 0.0 - 0.2 E9/L [facility] Eosinophils/100 WBC (Bld) 0.4 % Normal 0.0 - 8.0 % [facility] Eosinophils/Leukocytes Auto (Bld) [Pure # fraction] 0.1 E9/L Normal 0.0 - 0.5 E9/L [facility] Lymphocytes/100 WBC (Bld) 1.9 % Low 14.0 - 50.0 % [facility] Lymphocytes/Leukocytes Auto (Bld) [Pure # fraction] 0.3 E9/L Low 1.0 - 4.0 E9/L [facility] Monocytes/100 WBC (Bld) 3.1 % Low 4.0 - 14.0 % [facility] Monocytes/Leukocytes Auto (Bld) [Pure # fraction] 0.4 E9/L Normal 0.2 - 1.0 E9/L [facility] Neutrophils/100 WBC (Bld) 94.2 % High 36.0 - 75.0 % [facility] Neutrophils/Leukocytes Auto (Bld) [Pure # fraction] 13.5 E9/L High 2.0 - 7.5 E9/L [facility] HEMATOLOGYOrdered By: Courtney Villagran on 09-26-2022 Erythrocyte distribution width (RBC) [Ratio] 13.3 % Normal 10.9 - 14.2 % [facility] Hematocrit (Bld) [Volume fraction] 40.6 % Normal 37.7 - 49.0 % [facility] Hemoglobin (Bld) [Mass/Vol] 13.6 g/dL Normal 13.5 - 17.5 gm/dL [facility] MCH (RBC) [Entitic mass] 29.0 pg Normal 27. 0 - 34.0 pg [facility] MCHC (RBC) [Mass/Vol] 33.6 g/dL Normal 31.4 - 36.0 gm/dL [facility] MCV (RBC) [Entitic vol] 86.3 fL Normal 80.0 - 100.0 fL [facility] Platelet mean volume (Bld) [Entitic vol] 8.4 fL Normal 6.4 - 10.8 fL [facility] Platelets (Bld) [#/Vol] 200.0 E9/L Normal 150. 0 - 500.0 E9/L [facility] RBC (Bld) [#/Vol] 4.7 E12/L Normal 4.3 - 5.9 E12/L [facility] WBC corrected for nucl RBC Auto (Bld) [#/Vol] 14.3 E9/L High 4.0 - 11.0 E9/L [facility] Laboratory - Microbiology an d Antimicrobial susceptibilityOrdered By: Jeanine Miller on 09-26-2022 Bacteria identified Respiratory culture Nom (Sput) 1+ Normal upper respiratory marina isolated [facility] No Panel InformationOrdered By: ANGPROCESSSERVER MICROBIOLOGY on 09-26-2022 Blood Culture Charcoal No growth at 2 da ys. Final to follow at 7 days. [facility] Blood Culture Charcoal No growth at 2 da ys. Final to follow at 7 days. [facility] No Panel InformationOrdered By: Jeanine Miller on 09-26-2022 GS Occasional epithelial cells 1+ White Blood Cells Occasional Gram Positive Cocci Occasional Gram Positive Rods [facility] CHEMISTRYOrdered By: SYSTEM SYSTEM on 09-25-2022 Lactate [Mass/Vol] 2.7 mmol/L High 0.5 - 2.2 mmol/L [facility] Troponin I.cardiac [Mass/Vol] 19.80 pg/mL Normal 15.90 - 38.40 pg/mL [facility] Troponin I.cardiac [Mass/Vol] 23.60 pg/mL Normal 15.90 - 38.40 pg/mL [facility] Procalcitonin 4.29 ng/mL High 0.00 - 0.50 ng/mL [facility] Troponin I.cardiac [Mass/Vol] 30.80 pg/mL Normal 15.90 - 38.40 pg/mL [facility] Remisol CHEMISTRYOrdered By: Vicky Morse on 09-25-2022 Lactate [Mass/Vol] 2.0 mmol/L Normal 0.5 - 2.2 mmol/L [facility] Remisol CLINDAMYCIN:SUSC:PT:ISOLATE: ORDQN:MICOrdered By: Jeanine Miller on 09-25-2022 Clindamycin MARILY [Susc] Streptococcus pyogenes (Group A) In 2 of 2 blood culture bottles drawn. Isolated from aerobic and anaerobic bottles Preliminary gram stain result of gram positive cocci in chains Result called to Dr. Mendoza by [facility] and results read back for confirmation on 09/26/2022 11:11:50 [facility] Clindamycin MARILY [Susc]Ordere d By: Jeanine Miller on 09-25-2022 Streptococcus pyogenes (Group A) Streptococcus pyogenes (Group A) [facility] MICRO OTHER TESTSOrdered By: Antwan Pizarro on 09-25-2022 Rapid COV Int NEG Ctl Pass (09/25/22 12:39 AM) Normal [facility] Man Sero Rapid COV Int POS Ctl Pass (09/25/22 12:39 AM) Normal [facility] Man Sero SARS-CoV+SARS-CoV-2 (COVID-19) Ag IA.rapid Ql (Resp) Not Detected (09/25/22 12:39 AM) Normal Not Detected [facility] Man Sero PENICILLIN:SUSC:PT:ISOLATE:O RDQN:MICOrdered By: Jeanine Miller on 09-25-2022 Penicillin MARILY [Susc] Streptococcus pyogenes (Group A) In 2 of 2 blood culture bottles drawn. Isolated from aerobic and anaerobic bottles Preliminary gram stain result of gram positive cocci in chains Result called to Dr. Mendoza by [facility] and results read back for confirmation on 09/26/2022 11:11:24 [facility] Penicillin MARILY [Susc]Ordered By: Jeanine Miller on 09-25-2022 Streptococcus pyogenes (Group A) Streptococcus pyogenes (Group A) [facility] CHEMISTRYOrdered By: SYSTEM SYSTEM on 09-24-2022 Albumin [Mass/Vol] 3.7 g/dL Normal 3.3 - 5.0 gm/dL [facility] Albumin/Globulin [Mass ratio] 1.0 {ratio} Low 1.1 - 2.2 [facility] ALP [Catalytic activity/Vol] 103 [iU]/d High 21 - 98 Int._Unit/L [facility] ALT No additional P-5'-P [Catalytic activity/Vol] 27 [iU]/d Normal 6 - 46 Int._Unit/L [facility] AST [Catalytic activity/Vol] 29 [iU]/d Normal 5 - 43 Int._Unit/L [facility] Bilirubin [Mass/Vol] 1.7 mg/dL High 0.0 - 1 .1 mg/dL [facility] Bilirubin.direct [Mass/Vol] 0.5 mg/dL High 0.1 - 0.4 mg/dL [facility] Bilirubin.indirect [Mass or moles/Vol] 1.2 mg/dL High 0.1 - 0.9 mg/dL [facility] Globulin (S) [Mass/Vol] 3.8 g/dL Normal 1.4 - 4.0 gm/dL [facility] Protein [Mass/Vol] 7.5 g/dL Normal 6.0 - 7.8 gm/dL [facility] COAGULATIONOrdered By: Antwan Pizarro on 09-24-2022 aPTT Coag (PPP) [Time] 29.0 s Normal 25.1 - 36.5 second(s) [facility] Fibrin D-dimer FEU (PPP) [Mass/Vol] 4469 ng/mL FEU Invalid Interpretation Code 215 - 500 ng/mL FEU [facility] Comment on above: Result Comment: Resu lts Called To SARBJIT HIDALGO By Fanta And Read Back For Confirmation On 09/25/2022 00:07:02 EST Results Verified By Repeat Analysis INR Coag (PPP) [Relative time] 1.5 {INR} Invalid Interpretation Code [facility] PT Coag (PPP) [Time] 16.7 s High 9.4 - 1 2.5 second(s) [facility] XR SHOULDER LEFT (MIN 2 VIEW S)on 11-01-2018 Thyrotropin Qn HISTORY: Shoulder surgery. TECHNIQUE: 3 views of the left shoulder were obtained. No prior studies for comparison. FINDINGS: There are postoperative changes identified in the proximal humerus. There are mild degenerative changes of the shoulder. No fracture, dislocation or acute osseous abnormality is seen. IMPRESSION: Satisfactory postoperative changes. Mild degenerative changes present. Interpreted by: Meir Egan MD Signed by: Meir Egan MD 11/01/18 Final result Normal [facility] OPERATIVE REPORTon 9 OPERATIVE REPORT [facility] [address] [id number] OPERATIVE REPORT PATIENT NAME: MIGUEL AWAD : 1965 MED REC NO: [id number] ROOM: ACCOUNT NO: [id number] ADMIT DATE: 10/18/2018 PROVIDER: Bob Vázquez DATE OF PROCEDURE: 10/18/2018 SURGEON: Dr. Bob Vázquez. FERRULER: Alanna Rodriguez RN ANESTHESIA: Yvonne Turjillo CRNA; interscalene-general combination. PREOPERATIVE DIAGNOSES: Left shoulder impingement syndrome with full-thickness supraspinatus tear, hypertrophic AC joint with inferior spurring, near complete proximal biceps tendon tear with significant tendinopathy. POSTOPERATIVE DIAGNOSES: Left shoulder impingement syndrome with full thickness supraspinatus tear, hypertrophic AC joint with inferior spurring, near complete proximal biceps tendon tear with significant tendinopathy, with 2 cm supraspinatus tear with retraction and near complete biceps tendon tear. OPERATION PERFORMED: Left shoulder arthroscopy, extensive glenohumeral debridement, subacromial decompression, partial distal claviculectomy, arthroscopic 2 cm rotator cuff repair (2 anchors), and subpectoralis biceps tenodesis. SPECIMEN: None. EBL: 25 mL. IMPLANTS UTILIZED: Consisted two 4.75 SwiveLock Arthrex anchors for the supraspinatus rotator cuff arthroscopic repair and 1 titanium bicortical subpectoralis tenodesis posterior anchor. HISTORY AND INDICATIONS: The patient is a pleasant 53-year-old active male. He has had some shoulder issues on and off for years, but he recently in the last month has had a fall where he twisted and fell and he has not been able to lift his arm. He has had significant pain, swelling and irritability. His MRI is reviewed, which shows a full-thickness supraspinatus tear with mild retraction. There is a very large hypertrophic AC joint. There is tendinopathy of supraspinatus, infraspinatus, and subscapularis and there is a near-full thickness longitudinal significant component to the long head of his biceps tendon. The pros, cons, risks, benefits, and reasonable expectations were thoroughly reviewed. Consent form was signed and in the chart. Site was marked preoperatively. All questions were answered preoperatively. Antibiotics were provided weight-based per protocol. PROCEDURE IN DETAIL: The patient was taken to the operative suite and placed in supine position. Anesthesia was provided. The patient was positioned on the [facility] chair table. Shoulder was examined without adhesive or instability component. He was prepped and draped in sterile fashion with ChloraPrep. Time-out procedure occurred consistent with the consent form, H and P, and preoperative marked site. Landmarks were identified. Vertical posterior portal incision was made and the arthroscope entered the shoulder joint. General inspection showed intact articular cartilage to the humeral head. The glenoid had mild degenerative changes. There was [id number] fraying of the labrum. No instability. His biceps tendon was hanging on by a few strands and had significant bulbous tendinopathy for approximately an inch from the insertion. No SLAP tear or pull of his labrum. The rotator cuff had full-thickness tear with degenerative characteristics with fraying as well, measuring approximately 2 cm of supraspinatus. Subscapularis had tendinopathy, no full-thickness tear, actually pouch was negative. Anterior portal was established. Extensive debridement was performed in the frayed labrum. The biceps tendon underwent tenotomy with the Arthrocare wand and the rotator cuff stump and fraying was debrided with a 4.0 shaver. Subacromial space was encountered, which had a very large AC joint with inferior spurring with a type 2 acromion. The acromioplasty with partial distal claviculectomy with subtotal bursectomy was performed with a 5.0 cutter as well as 90-degree Arthrocare wand from the lateral portal incision. Once adequate decompression was achieved, the rotator cuff tear was identified, approximately 2 cm. This was retracted approximately 1 to 1.5 cm. There were some [id number] degenerative characteristics at the tendon but repairable without significant tension. The bed of the greater tuberosity was debrided with a 5.0 shaver utilizing the Scorpion needle through a fourth anterolateral portal with a 9 mm cannula. The horizontal mattress 4-limb suture was performed and two 4.75 SwiveLock anchors were utilized into the anatomic footprint reducing the tendon into anatomic position alignment without significant tension. There were no dog-ears or peripheral prominence, and anatomical repair was achieved from multiple views. Adequate decompression was achieved. After copious irrigation and final pictures of the arthroscopic components, the skin was closed with 4-0 nylon sutures. Attention was then directed to the proximal subpectoralis area. A 1 inch incision was made just below the subpectoralis medial brachial area. Blunt dissection was performed down through the fascia and down to the anterior humerus. The biceps tendon was manually retrieved with my index finger and pulled out of the wound. The end of the biceps tendon was significantly bulbous and had tendinopathy for approximately 1 inch to 1.25 inches. This was then amputated appropriately from the muscle-tendon junction utilizing the Arthrex Endoloop #2 FiberWire. A multiple-limb suture was performed. This measured at a 9, which is a very large tendon. The anterior cortex to subpectoralis was identified. Utilizing the guide pin, this was drilled bicortical. Copious irrigation was performed. A 9 mm proximal cortex reaming was performed into the intramedullary canal utilizing the Arthrex biceps button. This was placed through bicortically to the posterior humerus and confirmed stable and flipped, at which point this was then tensioned, dunking the tendon down into the wound approximately 1.5 cm with anatomic reconstruction and tension on the biceps muscle belly. Copious irrigation was performed. Suture was tied and cut. Subcutaneous tissues were closed with 2-0 Vicryl suture. Gary were applied. Bacitracin, Adaptic, well-padded sterile soft dressing with super sling immobilizer placed. The patient was awakened from anesthesia and transferred to the recovery room in stable and satisfactory condition. CASE: Clean and elective. SPONGE AND NEEDLE COUNT: Correct. SPECIMEN: None. PATIENT CONDITION: Satisfactory. BOB VÁZQUEZ MOLINA/Lolly_TTNIR_T Doc#: [id number] CC: Jeremías Vázquez [facility] Basic Metabolic Profon 10-13 (cont.) [facility] Comment on above: Result Comment: Aver age GFR for 50-59 years old: 93 mL/min/1.73sq m Chronic Kidney Disease: <60 mL/min/1.73sq m Kidney failure: <15 mL/min/1.73sq m eGFR calculated using average adult body mass. Additional eGFR calculator available at: http://www.appAttach.[employer]/multiple_crcl_2012.htm Performed By: #### C BC, BMP #### [facility] [address] [place] [address] Anion gap molar conc 10 mmol/L Normal 9-17 [facility] Comment on above: Performed By: #### C EV, BMP #### [facility] [address] [place] [address] BUN/CRE Ratio 22 High 9-20 [facility] Comment on above: Performed By: #### C EV, BMP #### [facility] [address] [place] [address] Calcium mass conc 9.9 mg/dL Normal 8.6-10.4 [facility] Comment on above: Performed By: #### C BC, BMP #### [facility] [address] [place] [address] Chloride molar conc 102 mmol/L Normal 98-107 [facility] Comment on above: Performed By: #### C BC, BMP #### [facility] [address] [place] [address] CO2 molar conc 27 mmol/L Normal 20-31 [facility] Comment on above: Performed By: #### C BC, BMP #### [facility] [address] [place] [address] Creatinine mass conc 0.74 mg/dL Normal 0.70-1.20 [facility] Comment on above: Performed By: #### C BC, BMP #### [facility] [address] [place] [address] GFR, Amer >60 Normal >60 [facility] Comment on above: Performed By: #### C BC, BMP #### [facility] [address] [facility] [place] [address] GFR,non Amer >60 Normal >60 [facility] Comment on above: Performed By: #### C BC, BMP #### [facility] [address] [facility] [place] [address] Glucose mass conc 156 mg/dL High 70-99 [facility] Comment on above: Performed By: #### C BC, BMP #### [facility] [address] [facility] [place] [address] Potassium molar conc 4.3 mmol/L Normal 3.7-5.3 [facility] Comment on above: Performed By: #### C BC, BMP #### [facility] [address] [facility] [place] [address] Sodium molar conc 139 mmol/L Normal 135-144 [facility] Comment on above: Performed By: #### C BC, BMP #### [facility] [address] [facility] [place] [address] Urea nitrogen mass conc 16 mg/dL Normal 6-20 [facility] Comment on above: Performed By: #### C BC, BMP #### [facility] [address] [facility] [place] [address] Staging: NOT REPORTED Normal [facility] Comment on above: Performed By: #### C BC, BMP #### [facility] [address] [facility] [place] [address] CBCon 10-13-2018 Erythrocyte distribution width Ratio (RBC) 12.4 % Normal 12.1-15.2 [facility] Comment on above: Performed By: #### C BC, BMP #### [facility] [address] [facility] [place] [address] Hematocrit Volume Fraction (Bld) 48.4 % Normal 41-53 [facility] Comment on above: Performed By: #### C BC, BMP #### [facility] [address] [place] [address] Hemoglobin mass conc (Bld) 16.3 g/dL Normal 13.5-17.5 [facility] Comment on above: Performed By: #### C BC, BMP #### [facility] [address] [place] [address] MCH Entitic mass (RBC) 29.6 pg Normal 26-34 [facility] Comment on above: Performed By: #### C BC, BMP #### [address] [address] MCHC mass conc (RBC) 33.6 g/dL Normal 31-37 [facility] Comment on above: Performed By: #### Yandy CARRENO, BMP #### [facility] [address] [place] [address] MCV Entitic volume (RBC) 88.0 fL Normal 80-100 [facility] Comment on above: Performed By: #### C EV, BMP #### [facility] [address] [place] [address] Platelets #/vol (Bld) 340 10*3/uL Normal 140-450 [facility] Comment on above: Performed By: #### C BC, BMP #### [facility] [address] [place] [address] RBC #/vol (Bld) 5.50 10*6/uL Normal 4.5-5.9 [facility] Comment on above: Performed By: #### C BC, BMP #### [facility] [address] [place] [address] WBC #/vol (Bld) 8.9 10*3/uL Normal 3.5-11.0 [facility] Comment on above: Performed By: #### C BC, BMP #### [facility] [address] [place] [address] NRBC Automated NOT REPORTED Normal [facility] Comment on above: Performed By: #### C BC, BMP #### [facility] [address] [place] [address] Platelet mean volume Entitic volume (Bld) NOT REPORTED Normal 6.0-12.0 [facility] Comment on above: Performed By: #### C BC, BMP #### [facility] [address] [place] [address] XR CHEST (2 VW)on 10-13-2018 XR CHEST (2 VW) PA AND LATERAL CHEST CLINICAL HISTORY: Preop. COMPARISON: None. FINDINGS: Two views are submitted. The lungs and pleural spaces are clear. Pulmonary vascular markings are normal. The cardiomediastinal silhouette is within normal limits. No bony lesions are shown. IMPRESSION: No acute cardiopulmonary abnormality. Interpreted by: Stephanie Dunn MD Signed by: Stephanie Dunn MD 10/13/18 Final result Normal [facility] Vital Signs Date Time Vital Sign Value Performing Clinician Facility 11-18-2022 09:06-0500 Body height 182.9 cm Madiha Ibarra MD Work Phone: [facility] 11-18-2022 09:06-0500 Body mass index (BMI) [Ratio] 37.04 kg/m2 Madiha Ibarra MD Work Phone: [facility] 11-18-2022 09:06-0500 Body temperature 98.1 [degF] Madiha Ibarra MD Work Phone: [facility] 11-18-2022 09:06-0500 Body weight 123.88 kg Madiha Ibarra MD Work Phone: [facility] 11-18-2022 09:06-0500 Diastolic blood pressure 87 mm[Hg] Madiha Ibarra MD Work Phone: [facility] 11-18-2022 09:06-0500 Heart rate 79 /min Madiha Ibarra MD Work Phone: [facility] 11-18-2022 09:06-0500 Respiratory rate 18 /min Madiha Ibarra MD Work Phone: [facility] 11-18-2022 09:06-0500 SaO2% (BldA) [Mass fraction] 97 % Madiha Ibarra MD Work Phone: [facility] 11-18-2022 09:06-0500 Systolic blood pressure 139 mm[Hg] Madiha Ibarra MD Work Phone: [facility] 09-28-2022 09:19-0500 Hourly Rounding [facility] 09-28-2022 09:19-0500 Promise to Return [facility] 09-28-2022 08:19-0500 Hourly Rounding [facility] 09-28-2022 08:19-0500 Promise to Return [facility] 09-28-2022 08:13-0500 Heart rate 104 /min [facility] 09-28-2022 08:13-0500 Respiratory rate 16 /min [facility] 09-28-2022 08:10-0500 SaO2% (BldA) [Mass fraction] 94 % [facility] 09-28-2022 08:07-0500 Heart rate 109 /min [facility] 09-28-2022 08:07-0500 Respiratory rate 18 /min [facility] 09-28-2022 07:50-0500 Heart rate 98 /min [facility] 09-28-2022 07:50-0500 SaO2% (BldA) [Mass fraction] 97 % [facility] 09-28-2022 07:46-0500 Diastolic blood pressure 91 mm[Hg] [facility] 09-28-2022 07:46-0500 Mean blood pressure 110 mm[Hg] [facility] 09-28-2022 07:46-0500 Systolic blood pressure 148 mm[Hg] [facility] 09-28-2022 07:45-0500 Body temperature 98.42 [degF] [facility] 09-28-2022 07:45-0500 Respiratory rate 16 /min [facility] 09-28-2022 07:19-0500 Hourly Rounding [facility] 09-28-2022 07:19-0500 Promise to Return [facility] 09-28-2022 05:00-0500 Blood Pressure Location [facility] 09-28-2022 05:00-0500 Body temperature 98.78 [degF] [facility] 09-28-2022 05:00-0500 Diastolic blood pressure 90 mm[Hg] [facility] 09-28-2022 05:00-0500 Mean blood pressure 106 mm[Hg] [facility] 09-28-2022 05:00-0500 SaO2% (BldA) [Mass fraction] 96 % [facility] 09-28-2022 05:00-0500 Systolic blood pressure 137 mm[Hg] [facility] 09-27-2022 20:00-0500 Body temperature 97.88 [degF] [facility] 09-27-2022 20:00-0500 Diastolic blood pressure 72 mm[Hg] [facility] 09-27-2022 20:00-0500 Systolic blood pressure 153 mm[Hg] [facility] 09-27-2022 16:38-0500 Mean blood pressure 95 mm[Hg] [facility] 09-27-2022 16:38-0500 Body temperature 98.6 [degF] [facility] 09-27-2022 11:00-0500 Blood Pressure Location [facility] 09-27-2022 11:00-0500 Mean blood pressure 93 mm[Hg] [facility] 09-27-2022 09:56-0500 FIO2 28 % [facility] 09-27-2022 08:20-0500 FIO2 28 % [facility] 09-27-2022 07:00-0500 Mean blood pressure 104 mm[Hg] [facility] 09-26-2022 20:06-0500 Mean blood pressure 100 mm[Hg] [facility] 09-26-2022 20:06-0500 Body temperature 100.22 [degF] [facility] 09-26-2022 08:30-0500 FIO2 32 % [facility] 09-25-2022 06:00-0500 Respiratory rate 24 /min [facility] 09-25-2022 04:14-0500 Nursing Progress Note Reason Other: pt taking crackers. [facility] 09-25-2022 04:14-0500 Respiratory rate 25 /min [facility] 09-25-2022 03:34-0500 Nursing Progress Note Reason Other: pt medicated for pain [facility] 09-25-2022 03:34-0500 Respiratory rate 21 /min [facility] 09-25-2022 02:59-0500 Nursing Progress Note Reason Other: antibotic started. pt complains of body aches. repeat vitals done. iv fluids at 250ml/hr [facility] 09-25-2022 01:23-0500 Body temperature 101.12 [degF] [facility] 09-24-2022 23:03-0500 Heart rate 133 /min [facility] Encounters Encounter Date Encounter Type Care Provider Facility Start: 03-18-2023 End: 03-19-2023 ambulatory SAMANTHA LONG Facility:[facility] Start: 12-03-2022 ambulatory PABLO WOLFE (JOHN) Facility:[facility] Start: 11-30-2022 End: 12-01-[address] JEREMÍAS SOTOMAYOR . Facility: Start: 11-18-2022 ambulatory MADIHA Avina ty:[facility] Start: 11-18-2022 ambulatory SELF SELF Facility:[facility] Start: 11-18-2022 End: 11-18-2022 Office outpatient new 60 minutes Madiha Ibarra MD Work Phone: Division of Pulmonary Diseases at [facility] Comment on above: Lung nodule (Primary Dx); Mediastinal lymphadenopathy; Aortic root dilatation Start: 11-16-[address] JEREMÍAS SOTOMAYOR . Facili ty: Start: 11-10-2022 End: 02-10-2023 ambulatory Jeremías Sotomayor Facility:[facility] Start: 11-10-2022 End: 02-09-2023 Recurring Jeremías Sotomayor [facility] Start: 11-09-2022 End: 11-10-[address] BALTAZAR RON Facility: Start: 11-05-2022 End: 11-06-2022 ambulatory Jeremías Sotomayor Facility:[facility] Start: 11-02-2022 End: 11-03-2022 ambulatory ATIF ATKINS Facility: Start: 09-24-2022 End: 09-28-2022 Evaluation and management of inpatient Shahzad BLACKBURN [facility] Start: 11-01-2018 End: 11-04-2018 Patient encounter procedure [facility] Start: 11-01-2018 End: 11-04-2018 Patient encounter procedure [facility] Start: 10-18-2018 End: 10-18-2018 Patient encounter procedure [facility] Start: 10-13-2018 Encounter for preprocedural respiratory examination [facility] Start: 10-13-2018 End: 10-16-2018 Patient encounter procedure [facility] Procedures Date Procedure Procedure Detail Performing Clinician Start: 10-20-2020 Biopsy of breast Shahzad BLACKBURN Comment on above: excisional biopsy of right breast Start: 09-08-2020 Biopsy of breast Shahzad BLACKBURN Start: 09-08-2020 Colonoscopy Shahzad DODGE H Start: 11-01-2018 Radex shoulder compl ete minimum 2 views BOB VÁZQUEZ Start: 10-18-2018 ADVANCE DIET TOLE RATED (NURSING COMMUNICATION) BOB VÁZQUEZ Start: 10-18-2018 AMBULATE PATIENT MARIN VÁZQUEZ Start: 10-18-2018 DISCHARGE PATIENT EVON VÁZQUEZ Start: 10-18-2018 ENCOURAGE DEEP BREAT FIONA AND COUGHING BOB VÁZQUEZ Start: 10-18-2018 FULL CODE BOB GILLESPIE Start: 10-18-2018 INITIATE OXYGEN THER APY PROTOCOL BOB VÁZQUEZ Start: 10-18-2018 NEURO/VASCULAR CHECKS Tyra VÁZQUEZ Start: 10-18-2018 REASON FOR NO CHEMIC AL VTE PROPHYLAXIS BOB VÁZQUEZ Start: 10-18-2018 TOBACCO CESSATION EDUCATION BOB VÁZQUEZ Start: 10-18-2018 VITAL SIGNS BOB GILLESPIE Start: 10-18-2018 WEIGHT BEARING TOLERATED BOB VÁZQUEZ Start: 10-18-2018 WOUND CARE BOB GILLESPIE Start: 10-18-2018 DIET NPO, NOW BOB ROJAS Start: 10-18-2018 NURSING COMMUNICATION Tyra VÁZQUEZ Start: 10-18-2018 VITAL SIGNS BOB GILLESPIE Start: 10-18-2018 VERIFY INFORMED CONSENT BOB VÁZQUEZ Start: 10-13-2018 EKG 12-LEAD BOB GILLESPIE Start: 10-13-2018 Radiologic exam chest 2 views BOB VÁZQUEZ Start: 10-13-2018 Basic metabolic pane l calcium total BOB VÁZQUEZ Start: 10-13-2018 Blood count complete automated BOB VÁZQUEZ Repair of musculoten dinous cuff of shoulder Shahzad BLACKBURN Rotator cuff syndrom e (disorder) Shahzad BLACKBURN Comment on above: left Vasectomy Shahzad BLACKBURN Plan of Treatment Date Care Activity Detail Author Start: 02-17-2023 End: 02-17-2023 Patient encounter procedure 02/17/2023 Office Visit Pulmonary Disease Madiha Ibarra MD [address] [place] [address] Division of Pulmonary Diseases at [facility] Start: 02-17-2023 End: 02-17-2023 Patient encounter procedure 02/17/2023 Appointment Computerized Tomography Scan Samantha Long APRN-ADJUSTER AND INSPECTOR [address] [place] [address] Department of Radiology Start: 11-18-2022 End: 11-18-2023 CT Chest WO contrast CT CHEST WITHOUT CONTRAST Imaging Routine Mediastinal lymphadenopathy Lung nodule Expected: 11/18/2022, Expires: 11/18/2023 [facility] Comment on above: Expected: 11/18/2022 , Expires: 11/18/2023 Start: 06-10-2022 Influenza vaccination INFLUENZA VACC INE (#1) [facility] Start: 2017 Prostate specific antigen measurement PROSTATE CANCER SCREENING DISCUSSION [facility] Start: 2017 Zoster vaccine hzv live for subcutaneous use ZOSTER (SHINGLES) VACCINE (1 of 2) [facility] Start: 2012 Screening for malignant neoplasm of colon COLORECTAL CANCER SCREENING DISCUSSION [facility] Start: 2007 Lipid panel LIPID SCREENING [facility] Start: 1986 Third diphtheria, tetanus and acellular pertussis (DTaP) vaccination TDAP (ADULT) [facility] Start: 1982 HIV screening HIV SCREENING DISCUSSI ON [facility] Start: 1967 COVID-19 VACCINE (#1) COVID-19 VACCI NE (#1) [facility] Start: 1967 Hepatitis C screening HEPATITI S C VIRUS SCREENING [facility] Start: 1967 Tetanus vaccination TETANUS [facility] Payers Date Payer Category Payer Unknown KAREN JONES O PPO POS [id number] 2022-Present [address] [place] [address] [id number] 2014 Unknown [id number] 1967 Unknown [id number] 1967 Unknown [id number] [id number] 1967 Unknown [id number] [id number] 1967 Unknown [id number] [id number] 1967 Unknown [id number] [id number] 1967 Unknown [id number] [id number] 1967 Unknown [id number] [id number] 1967 Unknown [id number] [id number] 1967 Unknown [id number] [id number] 1967 Unknown [id number] [id number] 1967 Unknown [id number] [id number] 1967 Unknown [id number] [id number] 1967 Unknown [id number] [id number] 1967 Unknown [id number] [id number] 1967 Unknown [id number] [id number] 1967 Unknown [id number] [id number] 1967 Unknown [id number] [id number] 1959 Unknown [id number] Social History Date Type Detail Facility Start: 10-28-2020 End: 11-18-2022 Tobacco smoking status Never smoked tobacco (finding) [facility] Sex Assigned At Male [facility] Start: 11-18-2022 Tobacco use and exposure Smokeless tobacco non-user [facility] Start: 1965 Sex Assigned At Not on file O [facility] Start: 11-08-2022 End: 11-18-2022 Exposure to SARS-CoV-2 (event) Unable to assess [facility] Functional Status Date Assessment Result Facility 09-25-2022 Functional Status N/A [facility] 09-24-2022 Functional Status [facility] History of Present illness Narrative 11-18-2022 JUANITA Sheppard - 11/18/2022 9:00 AM EST Note Date & Type Note Facility 11-18-2022 History of Present illness Narrative Images from the original note were not included. Interventional Pulmonology Initial Clinic Note Provider: Madiha Ibarra MD, and JUANITA Quiroz Referring Provider: Reason for Evaluation/Referral: RLL mass Chief complaint: Chief Complaint Patient presents with Immunization/Injection Declines vaccinations today. Dyspnea On Exertion Denies Wheezing Denies Cough Denies History of present illness: Mr. Miguel Awad is a 57 y.o. years old male never smoker with DIANE that was just found coming to the interventional pulmonary clinic for PET avid 1.4 x 1.7 subpleural RLL nodule & mediastinal lymphadenopathy found d/t hospital admission for strep pneumonia & influenza A in September. Has no cough, dyspnea, or chest pain; not since he was in the hospital in Sep for the infections. Sleeps flat. No chest pain, weight loss, fatigue, night sweats, or fevers. His thoracic root is 4.2cm. No other cardiac or pulmonary issues. He's supposed to be getting histo titers drawn at [facility] but hasn't gotten them yet. He did have hemoptysis in the hospital but none since. Pertinent meds: None. 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 CellWise: Vitamin A, C, E Calcium Mixed Carotenoids Mixed Tocophenols Lycopene [place] extract Grape seed extract HERBAL PRODUCT Take 2 capsules by mouth daily. ProvexCV Grape see extract Reseveratrol Green tea leaf extract Proteases Quercetin Powder Bilberry fruit extract Ginkgo Biloba leaf extract HERBAL PRODUCT Take 2 tablets by mouth daily. Recover AI Devil's Claw Bijal root Chokeberry Green tea Flower gigas Turmeric HERBAL PRODUCT Take 1 capsule by mouth daily. Florify Lactobacilus Bifidobacterium Frctooligosaccharides Multivitamin w/ minerals tablet Take 1 tablet by mouth daily. [place]-3 1000 MG capsule Take 2 capsules by mouth daily. Allergies Allergen Reactions Iodinated Contrast Media [Iodinated Diagnostic Agents] Nausea and Vomiting family history is not on file. Social History Socioeconomic History Marital status: Spouse name: Not on file Number of children: Not on file Years of education: Not on file Highest education level: Not on file Occupational History Not on file Tobacco Use Smoking status: Never Smokeless tobacco: Never Substance and Sexual Activity Alcohol use: Not on file Drug use: Not on file Sexual activity: Not on file Other Topics Concern Not on file Social History Narrative Not on file Social Determinants of Health Financial Resource Strain: Not on file Food Insecurity: Not on file Transportation Needs: Not on file Physical Activity: Not on file Stress: Not on file Social Connections: Not on file Intimate Partner Violence: Not on file Housing Stability: Not on file Review of Systems Pertinent ROS discussed in HPI OBJECTIVE Physical Exam BP 139/87 (BP Location: Left arm, BP Position: Sitting) Pulse 79 Temp 98.1 F (36.7 C) (Oral) Resp 18 Ht 1.829 m (6') Wt 123.9 kg (273 lb 1.6 oz) SpO2 97% BMI 37.04 kg/m Smoking Status Never Body mass index is 37.04 kg/m . GPEx: Awake, alert, sitting in chair in no apparent distress HEENT: No pallor or icterus, oropharynx is clear Pulm: Equal chest expansion bilaterally. Clear to auscultation bilaterally CV: Regular rate and rhythm, no rubs/ gallops or murmurs, no lower extremity edema Skin: No rashes, clubbing or cyanosis Heme/ lymphatic: No ecchymoses, no cervical or supraclavicular lymphadenopathy Neurologic: Awake, alert, speech normal, no focal neurologic deficit noted Psychiatric: Oriented, pleasant GRADE ECOG PERFORMANCE STATUS 0 Fully active, able to carry on all pre-disease performance without restriction 1 Restricted in physically strenuous activity but ambulatory and able to carry out work of a light or sedentary nature, e.g., light house work, office work 2 Ambulatory and capable of all selfcare but unable to carry out any work activities; up and about more than 50% of waking hours 3 Capable of only limited selfcare; confined to bed or chair more than 50% of waking hours 4 Completely disabled; cannot carry on any selfcare; totally confined to bed or chair Diagnostic review: I personally reviewed the following tests: Chest CT: From 11/05/22 and showed suspicious RLL nodule PET Scan: From 11/11/22 and showed lymph nodes were avid; part of the nodule is avid Assessment and plan: Miguel Awad is a 57 y.o. male never smoker with DIANE that was just found coming to the interventional pulmonary clinic for PET avid 1.4 x 1.7 subpleural RLL nodule & mediastinal lymphadenopathy found d/t hospital admission for strep pneumonia & influenza A in September. RLL nodule: This is greater than 1cm & avid on PET so needs evaluated but its round which could be benign and the avidity is next to the nodule therefore we will get the NODIFY biomarker test to evaluate his risk & depending on that result bronch vs repeat CT; patient not on ac. Discussed risks of bronch if it's needed. He will need a repeat CT here if it is needed for thin cuts. We will also get fungal serologies to see if it's a fungal cause. Mediastinal lymphadenopathy: Same as above Aortic root dilation: Referral made to cardiothoracic surgery Follow-up: 3 months Outside records reviewed: CT, PET As the attending physician, I personally examined the patient On 11/18/22, reviewed all labs and imaging. I have also reviewed the past medical, family, and relevant social history.I have taken a history pertinent to the patient's case. I have formulated an independent assessment and plan and discussed with the MARKET RESEARCH WORKER. My findings are in agreement as outlined by Kaycee Long and I have the following annotation to add: Mr. Awad is a 57 year old male never smoker who is referred for evaluation of a RLL subpleural nodule found during his admission end of last year for Influenza A infection complicated with Strep pneumonia, treated as such. He has recovered and denies lingering cough, sputum production or fever. No personal of family history of cancer. I have offered Mr. Awad further assessment with biomarker testing using NODIFY, he agrees. Once we have results back I will reach out with plan moving forward. We'll send fungal work up too. Finally, a referral to cardiothoracic surgery will be placed for the findings of an ascending aorta dilatation to 4.3 cm. He agrees. Madiha Ibarra MD [employer] Cutterwebmethods architect Interventional Pulmonary and Critical Care Medicine documented in this encounter [facility] Instructions 11-18-2022 Patient Instructions Note Date & Type Note Facility 11-18-2022 Instructions JUANITA Sheppard - 11/18/2022 9:00 AM EST The blood test result for the risk of the nodule will take 2-3 weeks to come back documented in this encounter [facility] Evaluation + Plan note 09-28-2022 Note Date & Type Note Facility 09-28-2022 Evaluation + Plan note Extrac romy from: Title:Discharge Note Author:GENIE ROSEN, Shahzad Cadet te:09/28/22 Discharged to - Home independently Discharge Diet(s): Low Sodium- 2000 mg (09/27/22 08:55:00) Prescriptions Augmentin 875 mg oral tablet, 1 tab(s), Oral, q12hr Mucinex 600 mg Tab-ER, 1200 mg= 2 tab(s), Oral, BID Home Multi Vitamin+, 1 tab(s), Oral, Daily Vitamin D, 1 tab, Oral, Daily With When Contact Information Jeremías Sotomayor Within 1 to 2 weeks [address] [place] [address]- Business (1) Additional Instructions: Call physician if symptoms worsen Call for followup appointment Follow-up with your primary care doctor and schedule outpatient repeat imaging with 2 view chest x-ray in 4 to 6 weeks to make sure the pneumonia has completely resolved. Community-Acquired Pneumonia, Adult Sepsis, Diagnosis, Adult Extracted from: Title:APSO Note Author:Shahzad BLACKBURN MD Date: 57-year-old male with past m edical history of obesity, chronic back pain presented to emergency department due to sepsis secondary to community-acquired pneumonia and Streptococcus bacteremia. 1. CAP (community acquired pneumonia) (J18.9: Pneumonia, unspecified organism) Secondary to Streptococcus Patient with bacteremia present on admission along with sepsis We will continue with ceftriaxone and azithromycin Switch to oral agent if repeat cultures are negative and possible discharge tomorrow Ambulatory desaturation study tomorrow morning 2. Sepsis (A41.9: Sepsis, unspecified organism) Resolving Continue to trend WBC Repeat cultures are in lab Change antibiotic as needed 3. Tachycardia (R00.0: Tachycardia, unspecified) Resolved Patient is eating and drinking well 4. Influenza (J11.1: Influenza due to unidentified influenza virus with other respiratory manifestations) Testing for flu negative Off Tamiflu 5. Leukocytosis (D72.829: Elevated white blood cell count, unspecified) Improving Continue to trend 6. Hypokalemia (E87.6: Hypokalemia) Repleted and resolved 7. Hyponatremia (E87.1: Hypo-osmolality and hyponatremia) Improved Patient is eating and drinking now 8. Obesity (E66.9: Obesity, unspecified) Lifestyle modification Follow-up with PCP 9. DVT prophylaxis (Z29.9: Encounter for prophylactic measures, unspecified) Heparin twice a day Orders: multivitamin, 1 EA, Tab, Oral, Daily, Routine, Start date 09/27/22 9:00:00 EST Basic Metabolic Panel Blood Culture Charcoal Blood Culture Charcoal CBC w/ Auto Diff Incentive Spirometry Oxygen Desaturation Study Procalcitonin Sputum Culture Plan discussed with patient at bedside Disposition: Discharge tomorrow if repeat cultures remain negative on oral antibiotics This report was transcribed using voice recognition software. Every effort was made to ensure accuracy, however, inadvertently computerized industrial registered nurse mistakes may be present. Dr. Shahzad Blackburn Hospitalist at [facility] Extracted from: Title:Admission H & P Author:Shahzad BLACKBURN MD ate:09/25/22 57-year-old male with past m edical history of obesity, chronic back pain presented to emergency department due to fevers with body ache and chest tightness. 1. CAP (community acquired pneumonia) (J18.9: Pneumonia, unspecified organism) With right lower lobe infiltrate after wdbvjrdoa-Deauiakyq-itjkhkon pneumonia Admit patient for inpatient treatment as I suspect he will require greater than 2 midnight stay Blood culture 2 Sputum culture Repeat chest x-ray in 4 weeks to see the resolution IV fluid Start patient on ceftriaxone and azithromycin IV Breathing treatment, incentive spirometry, flutter valve Mucinex Continue with supplemental O2 to keep saturation greater than 91% 2. Sepsis (A41.9: Sepsis, unspecified organism) No need for weight-based fluid bolus given hemodynamic stability Will check lactic acid level along with blood culture x2 Treat the pneumonia Ordered: Sodium Chloride 0.9% intravenous solution 1,000 mL, 1,000 mL, IV, 75 mL/hr, for 1 dose(s), Stop date 09/25/22 18:40:00 EST, Routine, Start date 09/25/22 5:23:00 EST, 13.3 hour(s), Total volume (mL): 1,000, 123.6 kg, 2.51, m2 3. Tachycardia (R00.0: Tachycardia, unspecified) Secondary to underlying infection Follow-up final CTA read 4. Influenza (J11.1: Influenza due to unidentified influenza virus with other respiratory manifestations) Very high suspicion for acute influenza followed by superimposed bacterial pneumonia with elevated procalcitonin Follow-up respiratory panel Patient has a exposure to 1 L of normal saline at 75 cc an hour Tamiflu twice a day for now but discontinue if respiratory panel is negative management as above Cough suppressant Follow-up blood culture result Supportive care with Tylenol 5. Leukocytosis (D72.829: Elevated white blood cell count, unspecified) Secondary to above Continue to trend Follow-up culture results 6. Hypokalemia (E87.6: Hypokalemia) Repleted Repeat BMP in the morning along with magnesium level Ordered: potassium chloride, 40 mEq = 2 tab(s), Tab-ER, Oral, Once, Stop date 09/25/22 6:00:00 EST, Routine, Start date 09/25/22 6:00:00 EST, 09/25/22 5:20:00 EST 7. Hyponatremia (E87.1: Hypo-osmolality and hyponatremia) Secondary to probably acute pneumonia Continue to trend with 1 L of normal saline 8. Obesity (E66.9: Obesity, unspecified) Lifestyle modification BMI of 36.51 9. DVT prophylaxis (Z29.9: Encounter for prophylactic measures, unspecified) Heparin twice a day Orders: acetaminophen, 650 mg = 2 tab(s), Tab, Oral, q4hr PRN Pain, Routine, Start date 09/25/22 5:16:00 EST, 09/25/22 5:16:00 EST albuterol, 2.5 mg, 3 mL, Soln-Inh, Inhalation, q2hr PRN Shortness of breath or wheezing, STAT, Start date 09/25/22 5:16:00 EST albuterol-ipratropium, 3 mL, Soln-Inh, Inhalation, QID, STAT, Start date 09/25/22 5:16:00 EST azithromycin, 500 mg = 2 tab(s), Tab, Oral, Daily for 5 day(s), Stop date 09/30/22 8:59:00 EST, Routine, Start date 09/25/22 9:00:00 EST, 09/25/22 5:16:00 EST ceftriaxone + Sodium Chloride 0.9% intravenous solution 50 mL, 1,000 mg = 1 EA, IV Piggyback, q24hr for 5 day(s), Stop date 09/30/22 5:15:00 EST, NOW, Start date 09/25/22 5:16:00 EST, 100 mL/hr, Infuse over 30 minute(s), 09/25/22 5:16:00 EST codeine-guaifenesin, 5 mL, Syrup, Oral, q4hr PRN Cough, STAT, Start date 09/25/22 5:18:00 EST, not to exceed 40 ml/day guaifenesin, 1,200 mg = 2 tab(s), Tab-ER, Oral, BID, Routine, Start date 09/25/22 9:00:00 EST, 09/25/22 5:16:00 EST heparin, 5,000 unit(s) = 1 mL, Injection, SubCutaneous, BID, Routine, Start date 09/25/22 9:00:00 EST, 09/25/22 5:16:00 EST ondansetron, 4 mg = 2 mL, Injection, IV Push, q6hr PRN Nausea/Vomiting, Routine, Start date 09/25/22 5:16:00 EST, 09/25/22 5:16:00 EST oseltamivir, 75 mg = 1 cap(s), Cap, Oral, BID for 5 day(s), Stop date 09/30/22 8:59:00 EST, Routine, Start date 09/25/22 9:00:00 EST, 09/25/22 5:18:00 EST Activity As Tolerated Basic Metabolic Panel Below the Knee Intermittent Pneumatic Compression Device Blood Culture Charcoal Blood Culture Charcoal CBC w/ Auto Diff Consult to Clinical Building Maintenance Custodian Consult to Dietitian Adult Intake and Output Isolation Precautions Lactic Acid Notify Provider Vital Signs Oxygen - Wean Oxygen Therapy Physical Therapy Evaluate Patient, Develop a Plan of Care and Implement Plan Place in Status Prealbumin Precautions PT & PTT Pulse Oximetry Regular Diet Saline Lock Insert Sputum Culture Vital Signs Weight Plan discussed with patient at bedside in ER bed #12 This report was transcribed using voice recognition software. Every effort was made to ensure accuracy, however, inadvertently computerized industrial registered nurse mistakes may be present. Dr. Shahzad Blackburn Hospitalist at [facility] Extracted from: Title:ED Note Author:Augie Manzo MD Date:09/25 1. Right lower lobe pulmonar y infiltrate (R91.8: Other nonspecific abnormal finding of lung field) 2. Tachycardia (R00.0: Tachycardia, unspecified) 3. Leukocytosis (D72.829: Elevated white blood cell count, unspecified) Orders: acetaminophen, 975 mg = 3 tab(s), Tab, Oral, Once, Stop date 09/24/22 23:45:00 EST, STAT, Start date 09/24/22 23:45:00 EST, 09/24/22 23:45:00 EST acetaminophen-hydrocodone, 1 tab(s), Tab, Oral, Once, Stop date 09/25/22 3:05:00 EST, STAT, Start date 09/25/22 3:05:00 EST azithromycin, Injection, Misc, Once, Stop date 09/25/22 2:38:09 EST, Physician Stop, 09/25/22 2:38:09 EST azithromycin + Sodium Chloride 0.9% intravenous solution 250 mL, 500 mg = 1 EA, IV Piggyback, Daily, STAT, Start date 09/25/22 2:25:00 EST, 250 mL/hr, Infuse over 60 minute(s), 09/25/22 2:25:00 EST ondansetron, 4 mg = 2 mL, Injection, IV Push, Once, Stop date 09/24/22 23:45:00 EST, STAT, Start date 09/24/22 23:45:00 EST, 09/24/22 23:45:00 EST Sodium Chloride 0.9% intravenous solution, 1,000 mL, Soln-IV, IV, Once, Stop date 09/24/22 23:45:00 EST, STAT, Start date 09/24/22 23:45:00 EST, mL/hr, Infuse over 61, minute(s) Sodium Chloride 0.9% intravenous solution, Soln-IV, Misc, Once, Stop date 09/25/22 2:40:56 EST, Physician Stop, 09/25/22 2:40:56 EST Sodium Chloride 0.9% intravenous solution 1,000 mL, 1,000 mL, IV, 250 mL/hr, STAT, Start date 09/25/22 1:44:00 EST, 4 hour(s), Total volume (mL): 1,000, 123.6 kg, 2.51, m2 Sodium Chloride 0.9% intravenous solution 1,000 mL, 1,000 mL, IV, 1,000 mL/hr, STAT, Start date 09/24/22 23:07:00 EST, 1 hour(s), Total volume (mL): 1,000 Automated Diff Basic Metabolic Panel CBC w/ Auto Diff COVID-19 ([facility] CTA Chest D-Dimer ECG 12 Lead Adult ED Cardiac Monitoring ED Cardiac Monitoring ED Physician consult Hospitalist for continued care eGFR Hepatic Function Panel Oxygen Saturation Oxygen Therapy Procalcitonin PT & PTT Rapid COVID Antigen ([facility] [place]) Respiratory Panel by PCR Saline Lock Insert Troponin 0 Hr. Troponin 3 Hr. Troponin 6 Hr. Troponin 9 Hr. XR Chest 2 Views Addendum by Auige Manzo MD September 25, 2022 06:09:55 EST Additional piece of history and physical findings. Patient over the past several days has complained of a sharp pain in the right buttock region. This area was examined there is no erythema induration or fluctuance that I detect the area just lateral to the right ischial tuberosity is tender. There is some thickened skin with some scaling at the midline suggestive of a chronic dermatitis just superior to the anus. Future Scheduled Tests Radiology* CT Chest w/ Contrast 10/26/22 [facility] Hospital Discharge instructions 09-27-2022 Note Date & Type Note Facility 09-27-2022 Hospital Discharg e instructions Patient Education 09/27/2022 08:56:53 Community-Acquired Pneumonia, Adult Community-Acquired Pneumonia, Adult Pneumonia is a type of lung infection that causes swelling in the airways of the lungs. Mucus and fluid may also build up inside the airways. This may cause coughing and difficulty breathing. There are different types of pneumonia. One type can develop while a person is in a hospital. A different type is called community-acquired pneumonia. It develops in people who are not, and have not recently been, in the hospital or another type of health care facility. What are the causes? This condition may be caused by: Viruses. This is the most common cause of pneumonia. Bacteria. Community-acquired pneumonia is often caused by Streptococcus pneumoniae bacteria. These bacteria are often passed from one person to another by breathing in droplets from the cough or sneeze of an infected person. Fungi. This is the least common cause of pneumonia. What increases the risk? The following factors may make you more likely to develop this condition: Having a chronic disease, such as chronic obstructive pulmonary disease (COPD), asthma, congestive heart failure, cystic fibrosis, diabetes, or kidney disease. Having early-stage or late-stage HIV. Having sickle cell disease. Having had your spleen removed (splenectomy). Having poor dental hygiene. Having a medical condition that increases the risk of breathing in (aspirating) secretions from your own mouth and nose. Having a weakened body defense system (immune system). Being a smoker. Traveling to areas where pneumonia-causing germs commonly exist. Being around animal habitats or animals that have pneumonia-causing germs, including birds, bats, rabbits, cats, and farm animals. What are the signs or symptoms? Symptoms of this condition include: A dry cough. A wet (productive) cough. Fever. Sweating. Chest pain, especially when breathing deeply or coughing. Rapid breathing or difficulty breathing. Shortness of breath. Shaking chills. Fatigue. Muscle aches. How is this diagnosed? This condition may be diagnosed based on: Your medical history. A physical exam. You may also have tests, including: Chest X-rays. Tests of your blood oxygen level and other blood gases. Tests on blood, mucus (sputum), fluid around your lungs (pleural fluid), and urine. If your pneumonia is severe, other tests may be done to find the exact cause of your illness. How is this treated? Treatment for this condition depends on many factors, such as the cause of your pneumonia, the medicines you take, and other medical conditions that you have. For most adults, treatment and recovery from pneumonia may occur at home. In some cases, treatment must happen in a hospital. Treatment may include: Medicines that are given by mouth or through an IV, including: ?Antibiotic medicines, if the pneumonia was caused by bacteria. ?Antiviral medicines, if the pneumonia was caused by a virus. Being given extra oxygen. Respiratory therapy. Although rare, treating severe pneumonia may include: Using a machine to help you breathe (mechanical ventilation). This is done if you are not breathing well on your own and you cannot maintain a safe blood oxygen level. Thoracentesis. This is a procedure to remove fluid from around one lung or both lungs to help you breathe better. Follow these instructions at home: Medicines Take [id number] and prescription medicines only as told by your health care provider. ?Only take cough medicine if you are losing sleep. Be aware that cough medicine can prevent your body's natural ability to remove mucus from your lungs. If you were prescribed an antibiotic medicine, take it as told by your health care provider. Do not stop taking the antibiotic even if you start to feel better. General instructions Sleep in a semi-upright position at night. Try sleeping in a reclining chair, or place a few pillows under your head. Rest as needed and get at least 8 hours of sleep each night. Drink enough water to keep your urine pale yellow. This will help to thin out mucus secretions in your lungs. Eat a healthy diet that includes plenty of vegetables, fruits, whole grains, low-fat dairy products, and lean protein. Do not use any products that contain nicotine or tobacco, such as cigarettes, e-cigarettes, and chewing tobacco. If you need help quitting, ask your health care provider. Keep all follow-up visits as told by your health care provider. This is important. How is this prevented? You can lower your risk of developing community-acquired pneumonia by: Getting a pneumococcal vaccine. There are different types and schedules of pneumococcal vaccines. Ask your health care provider which option is best for you. Consider getting the vaccine if: ?You are older than 65 years of age. ?You are older than 19 years of age and are undergoing cancer treatment, have chronic lung disease, or have other medical conditions that affect your immune system. Ask your health care provider if this applies to you. Getting an influenza vaccine every year. Ask your health care provider which type of vaccine is best for you. Getting regular checkups from your dentist. Washing your hands often. If soap and water are not available, use hand glass pulverizer equipment operator. Contact a health care provider if: You have a fever. You are losing sleep because you cannot control your cough with cough medicine. Get help right away if: You have worsening shortness of breath. You have increased chest pain. Your sickness becomes worse, especially if you are an older adult or have a weakened immune system. You cough up blood. Summary Pneumonia is an infection of the lungs. Community-acquired pneumonia develops in people who have not been in the hospital. It can be caused by bacteria, viruses, or fungi. This condition may be treated with antibiotics or antiviral medicines. Severe cases may require hospitalization, mechanical ventilation, and other procedures to drain fluid from the lungs. This information is not intended to replace advice given to you by your health care provider. Make sure you discuss any questions you have with your health care provider. Document Released: 09/26/2006 Document Revised: 05/24/2019 Document Reviewed: 05/24/2019 [employer] Patient Education 2020 [employer]. 09/27/2022 08:56:53 Sepsis, Diagnosis, Adult Sepsis, Diagnosis, Adult Sepsis is a serious bodily reaction to an infection. The infection that triggers sepsis may be from a bacteria, virus, or fungus. Sepsis can result from an infection in any part of your body. Infections that commonly lead to sepsis include skin, lung, and urinary tract infections. Sepsis is a medical emergency that must be treated right away in a hospital. In severe cases, it can lead to septic shock. Septic shock can weaken your heart and cause your blood pressure to drop. This can cause your central nervous system and your body's organs to stop working. What are the causes? This condition is caused by a severe reaction to infections from bacteria, viruses, or fungus. The germs that most often lead to sepsis include: Escherichia coli (E. coli) bacteria. Staphylococcus aureus (staph) bacteria. Some types of Streptococcus bacteria. The most common infections affect these organs: The lung (pneumonia). The kidneys or bladder (urinary tract infection). The skin (cellulitis). The bowel, gallbladder, or pancreas. What increases the risk? You are more likely to develop this condition if: Your body's disease-fighting system (immune system) is weakened. You are age 65 or older. You are male. You had surgery or you have been hospitalized. You have these devices inserted into your body: ?A small, thin tube (catheter). ?IV line. ?Breathing tube. ?Drainage tube. You are not getting enough nutrients from food (malnourished). You have a long-term (chronic) disease, such as cancer, lung disease, kidney disease, or diabetes. You are . What are the signs or symptoms? Symptoms of this condition may include: Fever. Chills or feeling very cold. Confusion or anxiety. Fatigue. Muscle aches. Shortness of breath. Nausea and vomiting. Urinating much less than usual. Fast heart rate (tachycardia). Rapid breathing (hyperventilation). Changes in skin color. Your skin may look blotchy, pale, or blue. Cool, clammy, or sweaty skin. Skin rash. Other symptoms depend on the source of your infection. How is this diagnosed? This condition is diagnosed based on: Your symptoms. Your medical history. A physical exam. Other tests may also be done to find out the cause of the infection and how severe the sepsis is. These tests may include: Blood tests. Urine tests. Swabs from other areas of your body that may have an infection. These samples may be tested (cultured) to find out what type of bacteria is causing the infection. Chest X-ray to check for pneumonia. Other imaging tests, such as a CT scan, may also be done. Lumbar puncture. This removes a small amount of the fluid that surrounds your brain and spinal cord. The fluid is then examined for infection. How is this treated? This condition must be treated in a hospital. Based on the cause of your infection, you may be given an antibiotic, antiviral, or antifungal medicine. You may also receive: Fluids through an IV. Oxygen and breathing assistance. Medicines to increase your blood pressure. Kidney dialysis. This process cleans your blood if your kidneys have failed. Surgery to remove infected tissue. Blood transfusion if needed. Medicine to prevent blood clots. Nutrients to correct imbalances in basic body function (metabolism). You may: ?Receive important salts and minerals (electrolytes) through an IV. ?Have your blood sugar level adjusted. Follow these instructions at home: Medicines Take [id number]-lyourhq and prescription medicines only as told by your health care provider. If you were prescribed an antibiotic, antiviral, or antifungal medicine, take it as told by your health care provider. Do not stop taking the medicine even if you start to feel better. General instructions If you have a catheter or other indwelling device, ask to have it removed as soon as possible. Keep all follow-up visits as told by your health care provider. This is important. Contact a health care provider if: You do not feel like you are getting better or regaining strength. You are having trouble coping with your recovery. You frequently feel tired. You feel worse or do not seem to get better after surgery. You think you may have an infection after surgery. Get help right away if: You have any symptoms of sepsis. You have difficulty breathing. You have a rapid or skipping heartbeat. You become confused or disoriented. You have a high fever. Your skin becomes blotchy, pale, or blue. You have an infection that is getting worse or not getting better. These symptoms may represent a serious problem that is an emergency. Do not wait to see if the symptoms will go away. Get medical help right away. Call your local emergency services (911 in the [place] Do not drive yourself to the hospital. Summary Sepsis is a medical emergency that requires immediate treatment in a hospital. This condition is caused by a severe reaction to infections from bacteria, viruses, or fungus. Based on the cause of your infection, you may be given an antibiotic, antiviral, or antifungal medicine. Treatment may also include IV fluids, breathing assistance, and kidney dialysis. This information is not intended to replace advice given to you by your health care provider. Make sure you discuss any questions you have with your health care provider. Document Released: 06/24/2004 Document Revised: 05/04/2019 Document Reviewed: 05/04/2019 [employer] Patient Education 2020 [employer]. Follow Up Care 09/24/2022 22:53:19 With:Jeremías Sotomayor Address: [address] [place] [phone] (1) When:10/07/2022 14:00:00 Comments:Follow-up with your primary care doctor and schedule outpatient repeat imaging with 2 view chest x-ray in 4 to 6 weeks to make sure the pneumonia has completely resolved. [facility] Evaluation note Note Date & Type Note Facility Evaluation note Diagnosis Lung nodule- Primary Solitary pulmonary nodule Mediastinal lymphadenopathy Enlargement of lymph nodes Aortic root dilatation Aortic ectasia, unspecified site documented in this encounter [facility] Hospital course Narrative Note Date & Type Note Facility Hospital course Narrative No data available for this section [facility] Hospital Discharge instructions Note Date & Type Note Facility Hospital Discharge instructions No data available for this section [facility] Progress note Note Date & Type Note Facility Progress note No data available for this section [facility] Reason for referral (narrative) Consultation (Routine) - New Request Note Date & Type Note Facility Reason for referral (narrati ve) Specialty Diagnoses / Procedures Referred By Maryanne young Referred To Contact Thoracic Surgery Diagnoses Aortic root dilatation Samantha Long APRN-CNP [address] [place], [place] [id number] Referral ID Status Reason Start Date Expiration Date V isits Requested Visits Authorized [id number] New Request 11/23/2022 12/18/2023 1 1 * MRI/CAT Scan (Routine) - New Request Specialty Diagnoses / Procedures Referred By Maryanne young Referred To Contact Diagnoses Mediastinal lymphadenopathy Lung nodule Procedures CT CHEST WITHOUT CONTRAST CHG DIAGNOSTIC COMPUTED TOMOGRAPHY THORAX W/O CNTRST Samantha Long APRN-CNP [address] [place] [address] Referral ID Status Reason Start Date Expiration Date V isits Requested Visits Authorized [id number] New Request 11/18/2022 12/13/2023 1 1 [facility] Summary Purpose Family History No Family History Records FoundNo Family History Records FoundNo Family History Records FoundNo Family History Records Found Advance Directives No Advanced Directives Records FoundDocuments on File Type Date Recorded 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 HealthCare Power of Fan Blade Aligner 11/18/2022 9:32 AM HealthCare Power of Fan Blade Aligner 05/25/2001 Additional Source Comments (unrecognized sect ion and content) No Status Records FoundNo Status Records FoundNo Status Records FoundNo Status Records Found INFORMATION SOURCE (unrecogn ized section and content) DATE CREATED AUTHOR 11/16/2018 [place] DATE CREATED AUTHOR AUTHOR'S ORGANIZ ATION 12/05/2022 [facility] DATE CREATED AUTHOR AUTHOR'S ORGANIZ ATION 01/11/2023 [facility] DATE CREATED AUTHOR AUTHOR'S ORGANIZ ATION 10/12/2023 [facility] Patient Care team informatio n (unrecognized section and content) Personnel Name: Jeremías Sotomayor MD Address: Address: [address] [place] [address] Personnel Name: Jeremías Sotomayor MD Address: Address: [address] [place] [address] Reason for Visit (unrecogniz ed section and content) Reason Comments Immunization/Injection Declines vaccinat ions today. Dyspnea On Exertion Denies Wheezing Denies Cough Denies FOR RECORDS PERTAINING TO PATIENTS WHO ARE OR HAVE BEEN ENROLLED IN A CHEMICAL DEPENDENCY/SUBSTANCEABUSE PROGRAM, SOME INFORMATION MAY BE OMITTED. This clinical summary was aggregated from multiple sources. Caution should be exercised in using it in the provision of clinical care. This summary normalizes information from multiple sources, and as a consequence, information in this document may materially change the coding, format and clinical context of patient data. In addition, data may be omitted in some cases. CLINICAL DECISIONS SHOULD BE BASED ON THE PRIMARY CLINICAL RECORDS. [facility] provides no warranty or guarantee of the accuracy or completeness of information in this document.
== END 2024-11-16 07:50 | disposition home or self-care (01) ==
LOC: CT 07:49
PROVIDERS: PCP Family Medicine; Visit Provider Family Medicine
DX: I71.21 Aneurysm of the ascending aorta, without rupture (principal); R91.1 Solitary pulmonary nodule
CPT/HCPCS: 71275; Q9967

== ENCOUNTER 2025-07-26 14:55 | Outpatient (OUT) | payer BC, SELFPAY ==
--- OUTSIDE RECORDS SUMMARY | 2025-07-12 11:30 | XMS_ITS ---
Author Organization The [facility] in [place] Address [address] [place] [address] Care Team Providers Care Orthopedics Pediatric Physician Name Role Phone ALEJANDRO EVANS MD Primary Care Provider [phone] Alejandro Evans Unavailable [phone] Allergies Allergen (clinical drug ingredient) Drug/Non Drug Allergy documented on EMR Reaction Allergy Type Onset Date Status Contrast Allergy PreMed Pack Unknown Drug Allergy Active REASON FOR VISIT yearly wellness, heart anerisum wants a CT, needs zofran refilled Medications Medication SIG (Take, Route, Frequency, Duration) Notes Start Date End Date Status Ondansetron HCl 8 MG 1 tablet as needed Orally 1 every 6-8 hours for 1 week; Duration: 7 days 02/03/2024 Active Metoprolol Tartrate 25 MG TAKE 1 TABLET BY MOUTH TWICE A DAY; Duration: 90 Active Social History Tobacco Use: Social History Observation Description Date Details (start date - stop date) Never Smoker NA - NA Tobacco Use/Smoking Question Answer Notes Patient is a nonsmoker Vital Signs Weight 284.6 lbs 07/12/2025 Height 72 in 07/12/2025 Blood pressure systolic 142 mm Hg 07/12/20 25 Blood pressure diastolic 88 mm Hg 025 BMI 38.59 kg/m2 07/12/2025 Encounters Encounter Location Date Provider Diagnosis [facility] [address] [place] [address] 07/12/2025 Alejandro Evans Pulmonary nodule R91 .1 ; Aneurysm of the ascending aorta, without rupture I71.21 and Well adult Z00.00 Assessments Encounter Date Diagnosis (ICD Code) Assessment Notes Treatment Notes Treatment Clinical Notes Section Notes 07/12/2025 Pulmonary nodule (ICD-10 - R91.1) 07/12/2025 Aneurysm of the ascending aorta, without rupture (ICD-10 - I71.21) 07/12/2025 Well adult (ICD-10 - Z00.00) Plan Of Treatment Pending Test Test Name Order Date HEMOGLOBIN A1C (GLYCO) 07/12/2025 INSULIN, TOTAL 07/12/2025 LIPID PANEL (CHOL/TRIG/HDL/LDL) 07/12/20 25 THYROID PANEL (T4/TSH/FREE T3) CT angio chest 07/12/2025 PSA, SCREENING 07/12/2025 CMP (COMP MET YANES) w/eGFR CKD-EPI 2024 CBC WITH DIFF 07/12/2025 Progress Notes * Miguel AWADDOB: 7 (60 yo M)Acc No.[id number]:07/12/2025 Progress Note Patient: Miguel PAK Provider: Lalo Evans ([facility])MD :1965 A ge:60 Y S ex:Male Date:07/12/2025 Address:[address] [place] [address] Pcp:ALEJANDRO EVANS MD Check In:02:56 PM ESTCheck O ut:03:54 PM EST Subjective: * Chief Complaints: * Y early wellnessheart anerisum wants a CTNeeds zofran refilled * HPI: G eneral: BP up sl - not bad. * ROS: E ENT: hearing changes d enies. v isual changes d enies.?non-healing mouth sores d enies. s wollen glands or neck lumps d enies. h oarseness d enies. s ore throat d enies. d ifficulty swallowing d enies. n ose bleeds d enies. n wallace congestion d enies. e ar ache d enies. e ar discharge?denies. r inging in ears d enies. l ight sensitivity d enies. e ye pain d enies. b lurring d enies. e ye irritation d enies. d ouble vision d enies.?vision loss d enies. G eneral/Constitutional: Sweats: D enies. F atigue d enies. S leep problems d enies. A norexia d enies. M alaise d enies. W eight loss d enies.?Fatigue or Weakness d enies. F ever or Chills d enies. C ardiovascular: Shortness of Breath w/lying flat d enies. L ightheadedness/dizziness d enies. C hest tightness/ heavy pressure d enies. S welling of legs, ankles, or feet d enies. W aking up with shortness of breath d enies. C hest pain denies. P alpitations d enies. W eight gain d enies. R espiratory: Chronic or frequent cough d enies. C oughing up blood?denies. D ifficulty breathing d enies. P roductive cough d enies. S noring?denies. S hortness of breath that awakens from sleep (PND) d enies. C hest pain d enies. S putum production d enies. W heezing d enies. M usculoskeletal: Joint pain d enies. J oint Fluid d enies. B ack pain d enies. K nee pain d enies. N lasha pain d enies. J oint Stiffness d enies. M uscle cramps d enies. W eakness of muscles d enies. A rthritis d enies. M uscle aches d enies. P ain in shoulder(s) d enies. S wollen joints d enies. * Active Problem List R06.83 Snoring Modified On:09/15/2023U Status:confirmed R91.1 Pulmonary nodule Modified On:09/15/2023U Status:confirmed G47.30 Sleep apnea in adult Modified On:09/15/2023U Status:confirmed I71.21 Aneurysm of the asce nding aorta, without rupture Modified On:06/16/2023U Status:confirmed J21.9 Bronchiolitis Modified On:09/16/2023U Status:confirmed * Medical History: * Surgical History: P olypectomy-Tubular Adenoma Rt. Breast Biopsy * Hospitalization/Major Diagno stic Procedure: D enies Past Hospitalization * Family History: F ather: alive. M other: alive. B rother(s): alive. S ister(s): alive. S on(s): alive. D ashwiner(s): alive. 3 brother(s) , 2 sister(s) - healthy. 1 son(s) , 2 daughter(s) - healthy. . * Social History: T obacco Use: T obacco Use/Smoking P atient is a n onsmoker * Medications: T akingMetoprolol Tartrate 25 MG Tablet TAKE 1 TABLET BY MOUTH TWICE A DAY Ondansetron HCl 8 MG Tablet 1 tablet as needed Orally 1 every 6-8 hours for 1 week Taking Metoprolol Tartrate 25 MG Tablet TAKE 1 TABLET BY MOUTH TWICE A DAY Taking Ondansetron HCl 8 MG Tablet 1 tablet as needed Orally 1 every 6-8 hours for 1 week DiscontinuedCefdinir 300 MG Capsule 2 tabs Orally once a day predniSONE 50 MG Tablet 1 tablet Orally 13 hrs, 7 hrs, and 1hr prior to testing Medication List reviewed and reconciled with the patientDiscontinued Cefdinir 300 MG Capsule 2 tabs Orally once a day Discontinued predniSONE 50 MG Tablet 1 tablet Orally 13 hrs, 7 hrs, and 1hr prior to testing Medication List reviewed and reconciled with the patient * Allergies: C ontrast Allergy PreMed Packno[Allergies Verified] Objective: * Vitals: W t:284.6lbs, Ht: 72 in, BP:142/88mm Hg, BMI:38.59Index, Ht-cm: 182.88 cm, Wt-k.09 kg. * Examination: P hysical Exam: GENERAL: w ell developed, well nourished, in no acute distress. HEAD: n ormocephalic/atraumatic. EYES: p upils equal, round and reactive to light, conjunctivae and sclerae normal. EARS: n o deformity or lesion of external ear, canals and TM appear normal bilaterally, TM's intact, not inflamed with normal light reflex, hearing grossly normal to conversational speech. NOSE: n o deformity, discharge, inflammation, or lesions.? MOUTH: m ucous membranes moist, normal oropharynx and posterior pharynx without lesions or exudates, tongue normal, dentition normal. NECK: n lasha supple, no masses or palpable cervical nodes, trachea midline, thyroid without nodules, masses, tenderness, or enlargement. CHEST: n o chest wall deformity, no chest wall tenderness.? LUNGS: n ormal respiratory effort and clear to auscultation, no wheezes, rales, or rhonchi, good air exchange. CARDIO: r egular rate and rhythm, normal S1 and S2, nor murmur, rub, or gallop. PULSES: n ormal capillary refill. ABDOMEN: s oft, non-distended, non-tender, no masses. MUSCULOSKELETAL: n o deformity or scoliosis noted, normal range of motion, joints normal, no erythema, edema, effusion, or ecchymosis. EXTREMITY: n o clubbing, cyanosis, edema, or deformity with normal ROM in both upper and lower bilateral extremities. NEUROLOGIC: g rossly normal. SKIN: n o rashes, ulcerations, or suspicious lesions. LYMPH NODES: n o cervical adenopathy, nodes normal. MENTAL STATUS: a lert and oriented x3, normal mood and affect. Assessment: * Assessment: 1. P ulmonary nodule - R91.1 (Primary) 2 . A neurysm of the ascending aorta, without rupture - I71.21 3 . W [facility] adult - Z00.00 Plan: * Treatment: 2. A neurysm of the ascending aorta, without rupture I maging: CT angio chest 3. W [facility] adult L AB: HEMOGLOBIN A1C (GLYCO) L AB: INSULIN, TOTAL L AB: LIPID PANEL (CHOL/TRIG/HDL/LDL) L AB: THYROID PANEL (T4/TSH/FREE T3) L AB: PSA, SCREENING L AB: CMP (COMP MET YANES) w/eGFR CKD-EPI L AB: CBC WITH DIFF * Procedure Codes: * Preventive Medicine: Screenings/Counseling: B WA ACTION PLAN Above Normal BMI Follow-up D ietary management education, guidance, and counseling * * Sign off status: Completed Visit Status: C HK (Check Out) true * Provider: Lalo Evans ([facility])MD Date: Generated for Printi ng/Faxing/eTransmitting on: 1 02:57 PM EDT History and Physical Notes * HPI (History of Present Illness) Category Sub-Category Detail Notes Category Not es General BP up sl - not bad Examination Category Sub-Category Detail Notes Category Not es Physical Exam GENERAL: well developed, well nourished, in no acute distress HEAD: normocephalic/atraum atic EYES: pupils equal, round and reactive to light, conjunctivae and sclerae normal EARS: no deformity or lesi on of external ear, canals and TM appear normal bilaterally, TM's intact, not inflamed with normal light reflex, hearing grossly normal to conversational speech NOSE: no deformity, discha rge, inflammation, or lesions MOUTH: mucous membranes [address] st, normal oropharynx and posterior pharynx without lesions or exudates, tongue normal, dentition normal NECK: neck supple, no mass es or palpable cervical nodes, trachea midline, thyroid without nodules, masses, tenderness, or enlargement CHEST: no chest wall deform ity, no chest wall tenderness LUNGS: normal respiratory e ffort and clear to auscultation, no wheezes, rales, or rhonchi, good air exchange CARDIO: regular rate and rhy thm, normal S1 and S2, nor murmur, rub, or gallop PULSES: normal capillary ref ill ABDOMEN: soft, non-distended, non-tender, no masses RECTAL: MUSCULOSKELETAL: no deformity or scol iosis noted, normal range of motion, joints normal, no erythema, edema, effusion, or ecchymosis EXTREMITY: no clubbing, cyanosi s, edema, or deformity with normal ROM in both upper and lower bilateral extremities NEUROLOGIC: grossly normal SKIN: no rashes, ulceratio ns, or suspicious lesions LYMPH NODES: no cervical adenopat hy, nodes normal MENTAL STATUS: alert and oriented x 3, normal mood and affect
--- NOTE | 2025-07-26 14:57 | CT_ITS ---
[address] [address] Patient Name: RUBEN AWAD MRN: [id number] date: 1965 Sex: M Assigned Patient Location: CT Current Patient Location: CT Accession/Order Number: [id number] Exam Date: 07/26/2025 15:10 Report Date: 07/26/2025 22:14 At the request of: JEREMÍAS EVANS MD Procedure: CT angio chest CTA chest CLINICAL DATA: Pulmonary nodule, aortic aneurysm. TECHNIQUE: Intravenous contrast-enhanced CT angiography of the chest was performed. Axial, sagittal, coronal, and 3D-dimensional reconstructions were created and reviewed. These CT exams were performed using one or more of the following dose reduction techniques: Automated exposure control, adjustment of the mA and/or kV according to patient size, or use of iterative reconstruction technique. COMPARISON: 11/16/2024 . FINDINGS: Chest: Mediastinum:Ascending aorta 4.2 x 4.4 cm. Arch normal caliber 3.0 cm. Descending aorta at the level of the left pulmonary artery measures 2.6 cm. Descending aorta at the level of the diaphragmatic hiatus measures 2.5 x 2.5 cm. Stable cardiac size. No pericardial effusion. Stable mildly prominent right hilar lymph nodes up to 2.1 x 1.5 cm. Lungs:Stable subpleural nodule right lower lobe superior segment 1.1 x 1.0 cm in size. No new or progressive mural nodules. Minimal hypoventilatory change. No focal airspace opacity effusion or pneumothorax. Abd: Fatty infiltration liver.[ Soft tissues/Bones: Degenerative changes of the thoracic spine. [] CT/CT angio chest IMPRESSION: Stable right lower lobe pulmonary nodule and right hilar lymph nodes. Stable ectatic ascending aorta Impression dictated by: Tariq Calderon M.D. 07/26/2025 10:14 PM Dictation Location: [place] [address] Electronically authenticated by: [id number] Y Date: 07/26/2025 22:14
--- OUTSIDE RECORDS SUMMARY | 2025-07-26 14:57 | XMS_ITS | Clinical Summary ---
Author Organization [facility] Address [address] [place] [address] Phone Care Team Providers Care Crm Consultant Name Role Phone Benjamin Sotomayor MD Primary Care Provider [phone] Social History Tobacco Use Types Packs/Day Years Used Date Smoking Tobacco: Never Assessed Sex and Gender Information Value Date Recorded Sex Assigned at Not on file Legal Sex Male 2:49 PM EST Gender Identity Not on file Sexual Orientation Not on file Plan of Treatment Not on file Care Teams Crm Consultant Relationship Specialty Start Date End Date Benjamin Sotomayor MD [address] [place] [address] PCP - General 02/16/12
--- OUTSIDE RECORDS SUMMARY | 2025-07-26 14:57 | XMS_ITS | Encounter Summary ---
Author Organization [facility] Address [address] [place] [address] Care Team Providers Care Wild Life Photographer Name Role Phone Benjamin Sotomayor MD Primary Care Provider [phone] Reason for Visit * Reason Onset Date Comments Other 03/06/2024 Encounter Details Date Type Department Care Team (Late st Contact Info) Description 03/06/2024 Telephone Supervisor In Charge Center Miguel [facility] [address] [place] [phone] Regina Del Toro Other Social History Tobacco Use Types Packs/Day Years Used Date Smoking Tobacco: Never Smokeless Tobacco: Never Alcohol Use Standard Drinks/Week Comments Not Currently 0 (1 standard drink = 0.6 oz pur e alcohol) Depression Answer Date Recorded PHQ-9 Total Score (Interpret ation of Total Score 1-4 = Minimal depression; 5-9 = Mild depression; 10-14 = Moderate depression; 15-19 = Moderately severe depression) 0 11/18/2022 Sex and Gender Information Value Date Recorded Sex Assigned at Not on file Legal Sex Male 9:39 AM EST Gender Identity Male 11/18/2022 8:09 AM EST Sexual Orientation Straight 11/18/2022 8: 09 AM EST documented as of this encounter Miscellaneous Notes * Telephone Encounter - Regina Del Toro - 03/06/2024 1:03 PM EDT Patient is due for his 1yr follow up with Dr. Rivero's team. Was calling to set up telehealth appointment with [facility]KA to review recent CT but got LVM. Patient can call [phone] to schedule. documented in this encounter Plan of Treatment Not on file documented as of this encounter Visit Diagnoses Not on filedocumented in this encounter Additional Health Concerns Assessment Noted Time PHQ-9 Depression Total Score: 0 11/18/19 23 9:20 AM EST documented as of this encounter Care Teams Wild Life Photographer Relationship Specialty Start Date End Date Benjamin Sotomayor MD PCP - General Family Medicine 03/30/23 documented as of this encounter
--- OUTSIDE RECORDS SUMMARY | 2025-07-26 14:57 | XMS_ITS | Patient Health Record ---
Author Organization The [facility] in [place] Address [address] [place] [address] Care Team Providers Care Exhibits Coordinator Name Role Phone ALEJANDRO EVANS MD Primary Care Provider Alejandro Evans Unavailable [phone] Allergies Allergen (clinical drug ingredient) Drug/Non Drug Allergy documented on EMR Reaction Allergy Type Onset Date Status Contrast Allergy PreMed Pack Unknown Drug Allergy Active Results Component Value Reference Range Notes CT angio chest Reviewed date:11/19/2024 07:22:15 PM Interpretation: Performing Lab: Notes/Report: Source Facility: [place] [address] CT Scan Report Signed Patient: RUBEN AWAD MR#: [id number] : 1965 Acct:[id number] Age/Sex: 59 / M ADM Date: 11/16/24 Loc: CT Attending Dr: Jeremías Evans M.D. Ordering Physician: Jeremías Evans M.D. Date of Service: 11/16/24 Procedure(s): CT angio chest Accession Number(s): [id number] cc: Jeremías Evans M.D. [place] [id number] Patient Name: RUBEN AWAD MRN: [id number] date: 1965 Sex: M Assigned Patient Location: CT Current Patient Location: Accession/Order Number: [id number] Exam Date: 11/16/2024 08:00 Report Date: 11/19/2024 15:09 At the request of: JEREMÍAS EVANS Procedure: CT angio chest EXAMINATION: CT angio chest HISTORY: Aneurysm Of Ascending Aorta I71.21 COMPARISON: 02/04/2024 TECHNIQUE: Multi-planar CT images were created with IV contrast. Axial, Coronal, and Sagittal images. Dose reduction techniques were achieved by using automated exposure control and/or adjustment of mA and/or kV according to patient size and/or use of iterative reconstruction technique. FINDINGS: LUNGS: Stable 1.7 x 1.2 cm solid nodule identified in the suprasellar the right lower lobe axial image 53. Additional subcentimeter pulmonary nodules are stable both in number and size from the prior exam. No new pulmonary nodule or mass PLEURA: No mass, effusion, or pneumothorax. VASCULATURE: Normal postcontrast opacification of central pulmonary arterial tree with no filling defects WENDY: Small bilateral hilar lymph nodes right greater than left, stable MEDIASTINUM: No mass or adenopathy. CARDIAC: No enlargement or pericardial effusion AORTA: 4.1 cm aneurysm ascending thoracic aorta CHEST WALL: No mass or axillary adenopathy. BONES: No bone lesion or fracture. LIMITED ABDOMEN: No suspicious findings. Limited images of the upper abdomen. OTHER: Negative. CT/CT angio chest IMPRESSION: Stable 4.1 cm ascending thoracic aortic aneurysm Stable 1.7 cm nodule superior segment of the right lower lobe Electronically authenticated by: CELINA SHORE Date: 11/19/2024 15:09 Dictated By: Celina Shore M.D. Signed By: 11/19/24 1512 DD/ 1509 TD/TT: Artificial Cherry Maker: Reason For Referral No Information Medications Medication SIG (Take, Route, Frequency, Duration) Notes Start Date End Date Status Ondansetron HCl 8 MG 1 tablet as needed Orally 1 every 6-8 hours for 1 week; Duration: 7 days 02/03/2024 Active Metoprolol Tartrate 25 MG TAKE 1 TABLET BY MOUTH TWICE A DAY; Duration: 90 Active predniSONE 50 MG 1 tablet with food o r milk Orally 13, 7, and 1 hour prior to procedure; Duration: 1 days 07/16/2025 Active Social History Tobacco Use: Social History Observation Description Date Details (start date - stop date) Never Smoker NA - NA Tobacco Use/Smoking Question Answer Notes Patient is a nonsmoker Alcohol Screen (Audit-C) Question Answer Notes Did you have a drink containing alcohol in the p ast year? No Points 0 Interpretation Negative Problems Problem Type SNOMED Code ICD Code Onset Dates Problem Status W/U Status Risk Notes Problem Snoring (73859533) Snoring (R06.83) Active confirmed Problem Pulmonary nodule (565126693) Pulmonary nodule (R91.1) Active confirmed Problem Bronchiolitis (9143483) Bronchiolitis (J21.9) Active confirmed Problem Sleep apnea (25150648) Sleep apnea in adult (G47.30) Active confirmed Problem Aneurysm of ascending aorta (disorder) (339976478) Aneurysm of the ascending aorta, without rupture (I71.21) Active confirmed Vital Signs Blood pressure diastolic 88 mm Hg 07/12/2025 Height 72 in 07/12/2025 Blood pressure systolic 142 mm Hg 07/12/2025 Weight 284.6 lbs 07/12/2025 BMI 38.59 kg/m2 07/12/2025 Encounters Encounter Location Date Provider Diagnosis [place] [address] [place] [address] 10/11/2024 Alejandro Hoy Aneurysm of the ascending aorta, without rupture I71.21 [place] [address] [place] [address] 11/08/2024 [place] [address] [place] [address] 11/19/2024 Alejandro [facility] [address] [place] [address] 07/12/2025 [place] [address] [place] [address] 07/12/2025 Alejandro Hoy Pulmonary nodule R91 .1 ; Aneurysm of the ascending aorta, without rupture I71.21 and Well adult Z00.00 Assessments Encounter Date Diagnosis (ICD Code) Assessment Notes Treatment Notes Treatment Clinical Notes Section Notes 07/12/2025 Pulmonary nodule (ICD-10 - R91.1) 07/12/2025 Aneurysm of the ascending aorta, without rupture (ICD-10 - I71.21) 10/11/2024 Aneurysm of the ascending aorta, without rupture (ICD-10 - I71.21) 07/12/2025 Well adult (ICD-10 - Z00.00) Plan Of Treatment Pending Test Test Name Order Date CMP (COMPLETE METABOLIC PANEL) 3 HEMOGLOBIN A1C (GLYCO) 07/12/2025 INSULIN, TOTAL 07/12/2025 LIPID PANEL (CHOL/TRIG/HDL/LDL) 07/12/20 25 CTA Chest 01/23/2024 COMPREHENSIVE METABOLIC PROFILE WITH GFR 02/03/2024 OCCULT BLOOD, FECAL, IMMUNOASSAY 024 BNP 08/12/2023 CBC W/AUTO DIFF 08/12/2023 CBC W/AUTO DIFF 02/03/2024 D-DIMER 08/12/2023 GLYCOHEMOGLOBIN A1C 08/12/2023 TROPONIN, HIGH SENSITIVITY 08/12/2023 CT CHEST W CON 06/14/2023 CTA CHEST WO W CON 10/11/2024 THYROID PANEL (T4/TSH/FREE T3) 4 THYROID PANEL (T4/TSH/FREE T3) 3 THYROID PANEL (T4/TSH/FREE T3) 5 CT angio chest 07/12/2025 PSA, SCREENING 07/12/2025 PSA, SCREENING 02/03/2024 Lipid Panel 02/03/2024 CMP (COMP MET YANES) w/eGFR CKD-EPI 2024 CBC WITH DIFF 07/12/2025 Insurance Providers Payer Name Payer Address Payer Phone Subscriber Number Group Number Insured Name Patient Relationship to Insured Coverage Start Date Coverage End Date [employer] ACCESS PPO PLUS LOCAL PLAN [address] [place] [phone] [id number] Ruben Awad Self - patient is the insured Medical (General) History Medical History History ICD Code Sleep apnea in adult G47.30 Pulmonary nodule R91.1 Snoring R06.83 Hematuria R31.9 Surgical History Surgery Date(Month/Year) Rt. Breast Biopsy Polypectomy-Tubular Adenoma
--- OUTSIDE RECORDS SUMMARY | 2025-07-26 14:57 | XMS_ITS | Clinical Summary ---
Author Organization [facility] Address [address], [address] [place] [address] Care Team Providers Care Vanstone Machine Operator Name Role Phone Benjamin Sotomayor MD Primary Care Provider [phone] Allergies No known active allergies Medications Multiple Vitamins-Mineral s (THERAPEUTIC MULTIVITAMIN-MIN ERALS) tablet Take 1 tablet by mouth daily Active Active Problems Problem Noted Date Diagnosed Date Left rotator cuff tear 10/18/2018 Rupture of left long head biceps tendon 10/18/19 19 Social History Tobacco Use Types Packs/Day Years Used Date Smoking Tobacco: Never Smokeless Tobacco: Never Alcohol Use Standard Drinks/Week Comments Yes 0 (1 standard drink = 0.6 oz pur e alcohol) occas. Sex and Gender Information Value Date Recorded Sex Assigned at Not on file Legal Sex Male 10:53 AM EST Gender Identity Not on file Sexual Orientation Not on file Last Filed Vital Signs Vital Sign Reading Time Taken Comments Blood Pressure 137/95 10/18/2018 4:38 PM EST Pulse 81 10/18/2018 4:38 PM EST Temperature 35.9 C (96.6 F) 10/18/2018 4:08 PM EST Respiratory Rate 16 10/18/2018 4:38 PM EST Oxygen Saturation 95% 10/18/2018 4:38 PM EST Inhaled Oxygen Concentration - - Weight 117.9 kg (260 lb) 10/18/2018 10:54 AM EST Height 182.9 cm (6') 10/18/2018 10:54 AM EST Body Mass Index 35.26 10/18/2018 10:54 AM EST Plan of Treatment Not on file Medical Devices Implanted Type Area Paper Wrapping Machine Operator Device Identifier Shelf Expiration Date Model / Serial / Lot [place] Suture Swivelock 4.75x19.1 Biocomposite Min 5ea Implanted:Qty: 1 on 10/18/2018 by Alex Evans DO at [facility] Fastener Left: Shoulder [employer] 01/07/2019 [id number] / / [id number] [place] Suture Swivelock 4.75x19.1 Biocomposite Min 5ea Implanted:Qty: 1 on 10/18/2018 by Alex Evans DO at [facility] Fastener Left: Shoulder [employer] 08/09/2019 [id number] / / [id number] Impl Sys Tenodesis Proximal Implanted:Qty: 1 on 10/18/2018 by Alex Evans DO at [facility] Shoulder/Ar m/Wrist/White d Left: Shoulder [employer] 06/09/2023 [id number] / / [id number] Insurance [employer] Advance Directives * Full Code (Latest Code Status on File) Date Activated Date Inactivated Comments 10/18/2018 4:10 PM 10/18/2018 8:08 PM * Full Code Date Activated Date Inactivated Comments 10/18/2018 10:47 AM 10/18/2018 4:10 PM Care Teams Vanstone Machine Operator Relationship Specialty Start Date End Date Benjamin Sotomayor MD [address] [place] [address] PCP - General Family Medicine 10/13/18
--- OUTSIDE RECORDS SUMMARY | 2025-07-26 14:57 | XMS_ITS | Clinical Summary ---
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 Active Guston-3 1000 MG capsule Take 2 capsules by mouth daily. Active HERBAL PRODUCT Take 2 tablets by mouth daily. CellWise: Vitamin A, C, E Calcium Mixed Carotenoids Mixed Tocophenols Lycopene [place] extract Grape seed extract Active HERBAL PRODUCT Take 2 capsules by mouth daily. ProvexCV Grape see extract Reseveratrol Green tea leaf extract Proteases Quercetin Powder Bilberry fruit extract Ginkgo Biloba leaf extract Active HERBAL PRODUCT Take 2 tablets by mouth daily. Recover AI Devil's Claw Bijal root Chokeberry Green tea Flower gigas Turmeric Active HERBAL PRODUCT Take 1 capsule by mouth daily. Florify Lactobacilus Bifidobacterium Frctooligosaccha rides Active Active Problems Problem Noted Date Diagnosed Date Lung nodule 11/18/2022 Mediastinal lymphadenopathy 11/18/2022 Social History Tobacco Use Types Packs/Day Years Used Date Smoking Tobacco: Never Smokeless Tobacco: Never Tobacco Cessation:Counseling Given: Not Answered Alcohol Use Standard Drinks/Week Comments Not Currently [...] Orientation Straight 11/18/2022 8: 09 AM EST Last Filed Vital Signs Vital Sign Reading Time Taken Comments Blood Pressure 129/94 12/03/2022 10:17 AM EST Pulse 81 12/03/2022 10:17 AM EST Temperature 36.7 C (98.1 F) 11/18/2022 9:06 AM EST Respiratory Rate 18 11/18/2022 9:06 AM EST Oxygen Saturation 97% 11/18/2022 9:06 AM EST Inhaled Oxygen Concentration - - Weight 123.9 kg (273 lb 3.2 oz) 023 10:17 AM EST Height 182.9 cm (6') 12/03/2022 10:17 AM EST Body Mass Index 37.05 12/03/2022 10:17 AM EST Plan of Treatment Health Maintenance Due Date Last Done Comments HEPATITIS C VIRUS SCREENING 1967 TETANUS 1967 HIV SCREENING DISCUSSION 1982 HEP B VACCINE (1 of 3 - 19+ 3-dose series) 1986 TDAP (ADULT) 1986 LIPID SCREENING 2007 COLORECTAL CANCER SCREENING DISCUSSION 2012 PNEUMOCOCCAL VACCINE SERIES (1 of 1 - PCV) 2017 ZOSTER (SHINGLES) VACCINE (1 of 2) 2017 PROSTATE CANCER SCREENING DISCUSSION 2022 COVID-19 VACCINE ( season) 2025 INFLUENZA VACCINE (#1) 2025 [facility] Advance Directives For more information, please contact: [phone] (7:30 AM - 6PM [facility], Tuesday-Tuesday) Documents on File Type Date Recorded 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
--- OUTSIDE RECORDS SUMMARY | 2025-07-26 14:58 | XMS_ITS | CCD ---
Author Organization [facility] Care Team Providers Care General Freight Agent Name Role Phone BOB VÁZQUEZ Referring Unavailab [...] to drug 3 Nausea and Vomiting [facility] (1 source) No Known Medication Allergies; Translations: [No Known Medication Allergies] Propensity to adverse reactions (disorder) [facility] Repository Medications Current Medications Medication Drug Class(es) Dates Sig (Normalized) Sig (Original) amoxicillin 875 mg / clavulanate 125 mg oral tablet (1 source) Penicillin-class Antibacterial Start: 09-27-2022 End: 10-04-2022 take 1 tablet by mouth every twelve hours Augmentin 875 mg oral tablet = 1 tab(s), Oral, q12hr, X 7 day(s), # 14 tab(s), Refills(s) 0, Pharmacy: [facility], 184, cm, 09/24/22 23:10:00 EST, Height/Length Dosing, 123.6, kg, 09/24/22 23:10:00 EST, Weight Dosing Start Date: 09/27/22 Stop Date: 10/04/22 Status: Ordered docosahexaenoic acid 120 mg / eicosapentaenoic acid 180 mg oral capsule (1 source) take 2 capsules by mouth once daily [place]-3 1000 MG capsule Take 2 capsules by mouth daily. 0 Active 12 hr guaiFENesin 600 mg extended release oral tablet (1 source) Start: 09-27-2022 End: 10-02-2022 take 2 tablets by mouth twice daily Mucinex 600 mg Tab-ER 1,200 mg = 2 tab(s), Oral, BID, X 5 day(s), # 20 tab(s), Refills(s) 0, Pharmacy: [facility], 184, cm, 09/24/22 23:10:00 EST, Height/Length Dosing, 123.6, kg, 09/24/22 23:10:00 EST, Weight Dosing Start Date: 09/27/22 Stop Date: 10/02/22 Status: Ordered HERBAL PRODUCT (4 sources) take 2 tablets by mouth once daily HERBAL PRODUCT Take 2 tablets by mouth daily. [employer]Wise: Vitamin A, C, E Calcium Mixed Carotenoids Mixed Tocophenols Lycopene [place] extract Grape seed extract 0 Active take [...] Isovue 370 Contrast amount in ml's: 100 [facility] Consent for Treatmenton Consent for Treatment [id number] #1.00CD:127 [facility] Physician Orderon 03-10-2023 Physician Order [id number] 5#1.00CD:127 [facility] Pre-Certification Formon Pre-Certification Form [id number] 8#1.00CD:127 [facility] BLASTOMYCES, SERUMon 023 BLASTOMYCES AG, SERUM INTERPRETATION Negative [facility] Comment on above: ADDITIONAL INFORMATION Reference interval: None Detected Results reported as ng/mL in 0.2 - 14.7 ng/mL range Results above the limit of detection but below 0.2 ng/mL are reported as 'Positive, Below the Limit of Quantification' Results above 14.7 ng/mL are reported as 'Positive, Above the Limit of Quantification' This test was developed and its performance characteristics determined by [facility]. It has not been cleared or approved by the FDA; however, FDA clearance or approval is not currently required for clinical use. The results are not intended to be used as the sole means for clinical diagnosis or patient management decisions. Test Performed by: [facility] [address] [place] [address] BLASTOMYCES AG, SERUM RESULT Not detected ng/mL [facility] FUNGAL COMP. FIX. BATTERYon 11-22-2022 ASPERGILLUS CF ANTIBODY <1:8 Reference range: <1:8 INTERPRETIVE INFORMATION: Aspergillus Antibodies by CF A titer of 1:8 or greater suggests Aspergillus infection or allergy. Cross-reactions with dimorphic fungi are not unusual within the genus Aspergillus. Performed By: [facility] [address] [place] [address] Traffic Maintenance Supervisor: Kwan Whitten MD, PhD Performed at [facility], [address] [place] [address] BLASTOMYCES CF ANTIBODY 0.6 Reference range: <=0.9 Unit: IV INTERPRETIVE INFORMATION: Blastomyces Antibodies EIA, SER 0.9 IV or less.......Negative 1.0-1.4 IV...........Equivoc al 1.5 IV or greater....Positive [facility] COCCIDIOIDES CF ANTIBODY <1:2 Reference range: <1:2 [...] meningitis will not have antibody in CSF. [facility] H. capsulatum yeast phase Ab CF (S) [Titer] <1:8 Reference range: <1:8 INTERPRETIVE INFORMATION: Histoplasma Yeast Antibodies by CF A titer of 1:8 or greater is generally considered presumptive evidence of histoplasmosis. A titer of 1:32 or greater or rising titers indicate strong presumptive evidence of histoplasmosis. Cross reactions, usually at lower titers, may occur with other fungal diseases. [facility] HISTOPLASMA MYCELIAL CF AB <1:8 Reference range: <1:8 INTREPRETIVE INFORMATION: Histoplasma Mycelia Antibodies by CF A titer of 1:8 or greater is generally considered presumptive evidence of histoplasmosis. A titer of 1:32 or greater or rising titers indicate strong presumptive evidence of histoplasmosis. Cross reactions, usually at lower titers, may occur with other fungal diseases. [facility] HISTOPLASMA ANTIGEN, SERUMon 11-22-2022 H. capsulatum Ag IA Qn (S) Not detected ng/mL [facility] Histo interpretation Negative [facility] Comment on above: ADDITIONAL INFORMATION Reference interval: None Detected Reportable Range: Positive Results reported in ng/mL from 0.20 ng/mL to 20.00 ng/mL Positive Results above 20.00 ng/mL are reported as 'Above the Limit of Quantification' This test was developed and its performance characteristics determined by [facility]. It has not been cleared or approved by the FDA; however, FDA clearance or approval is not currently required for clinical use. The results are not intended to be used as the sole means for clinical diagnosis or patient management decisions. Test Performed by: [facility] [address] [place] [address] [place] [address] [facility] BLASTOMYCES, URINEon 023 B. dermatitidis Ag IA Ql (U) Not detected Not Detected [facility] Comment on above: No Blastomyces antig en detected. False negative results may occur. Repeat testing on a new specimen should be considered if clinically indicated. BLASTOMYCES AG, URINE INTERPRETATION Not detected ng/mL [facility] Comment on above: ADDITIONAL INFORMATION This test was developed and its performance characteristics determined by [facility] in a manner consistent with CLIA requirements. This test has not been cleared or approved by the U.S. Food and Drug Administration. Test Performed by: [facility] [place] [address] Group Home Counselor: Pedro Warren M.D. Ph.D.; CLIA# [id number] [facility] HISTOPLASMA ANTIGEN,URINEon 11-20-2022 H. capsulatum Ag (U) [Mass/Vol] Not detected ng/mL [facility] Comment on above: ADDITIONAL INFORMATION This test has been modified from the safety professional's instructions. Its performance characteristics were determined by [facility] in a manner consistent with CLIA requirements. This test has not been cleared or approved by the U.S. Food and Drug Administration. Test Performed by: [facility] [place] [address] Group Home Counselor: Pedro Warren M.D. Ph.D.; CLIA# [id number] H. capsulatum Ag IA Ql (U) Not detected Not Detected [facility] Comment on above: No Histoplasma antig en detected. False negative results may occur. Repeat testing on a new specimen should be considered if clinically indicated. [facility] BLASTOMYCES, SERUMon 023 BLASTOMYCES AG, SERUM INTERPRETATION Negative Normal [facility] Comment on above: Result Comment: ADDITIONAL INFORMATION Reference interval: None Detected Results reported as ng/mL in 0.2 - 14.7 ng/mL range Results above the limit of detection but below 0.2 ng/mL are reported as 'Positive, Below the Limit of Quantification' Results above 14.7 ng/mL are reported as 'Positive, Above the Limit of Quantification' This test was developed and its performance characteristics determined by [facility]. It has not been cleared or approved by the FDA; however, FDA clearance or approval is not currently required for clinical use. The results are not intended to be used as the sole means for clinical diagnosis or patient management decisions. Test Performed by: [facility] [address] [place] [address] Performed By: #### Y FBMS #### [facility] (DEFAULT) [address] [place] [address] BLASTOMYCES AG, SERUM RESULT Not detected Normal [facility] Comment on above: Performed By: #### Y FBMS #### [facility] (DEFAULT) [address] [place] [address] BLASTOMYCES, URINEon 023 BLASTOMYCES AG, URINE INTERPRETATION Not detected Normal [facility] Comment on above: Result Comment: ADDITIONAL INFORMATION This test was developed and its performance characteristics determined by [facility] in a manner consistent with CLIA requirements. This test has not been cleared or approved by the U.S. Food and Drug Administration. Test Performed by: [facility] [place] [address] [place] [address] Group Home Counselor: Pedro Warren M.D. Ph.D.; CLIA# [id number] Performed By: #### Y FBMU #### [facility] (DEFAULT) [address] [place] [address] BLASTOMYCES AG, URINE RESULT Not detected Normal Not Detected [facility] Comment on above: Result Comment: No B lastomyces antigen detected. False negative results may occur. Repeat testing on a new specimen should be considered if clinically indicated. Performed By: #### Y FBMU #### [facility] (DEFAULT) [address] [address] FUNGAL COMP. FIX. BATTERYon 11-18-2022 ASPERGILLUS CF ANTIBODY Normal O [facility] Comment on above: Result Comment: <1:8 Reference range: <1:8 INTERPRETIVE INFORMATION: Aspergillus Antibodies by CF A titer of 1:8 or greater suggests Aspergillus infection or allergy. Cross-reactions with dimorphic fungi are not unusual within the genus Aspergillus. Performed By: [facility] [address] [place] [address] Traffic Maintenance Supervisor: Kwan Whitten MD, PhD Performed at [facility], [address] [place] [address] Performed By: #### F CFX #### [facility] (DEFAULT) [address] [place] [address] BLASTOMYCES CF ANTIBODY Normal O [facility] Comment on above: Result Comment: 0.6 Reference range: <=0.9 Unit: IV INTERPRETIVE INFORMATION: Blastomyces Antibodies EIA, SER 0.9 IV or less.......Negative 1.0-1.4 IV...........Equivocal 1.5 IV or greater....Positive Performed By: #### F CFX #### [facility] (DEFAULT) [address] [place] [address] COCCIDIOIDES CF ANTIBODY Normal [facility] Comment on above: Result Comment: <1:2 Reference [...] Performed By: #### F CFX #### [facility] (DEFAULT) [address] [address] HISTOPLASMA MYCELIAL CF AB Normal [facility] Comment on above: Result Comment: <1:8 Reference range: <1:8 INTREPRETIVE INFORMATION: Histoplasma Mycelia Antibodies by CF A titer of 1:8 or greater is generally considered presumptive evidence of histoplasmosis. A titer of 1:32 or greater or rising titers indicate strong presumptive evidence of histoplasmosis. Cross reactions, usually at lower titers, may occur with other fungal diseases. Performed By: #### F CFX #### [facility] (DEFAULT) [address] [place] [address] Histoplasma Yeast CF Antibody Normal [facility] Comment on above: Result Comment: <1:8 Reference range: <1:8 INTERPRETIVE INFORMATION: Histoplasma Yeast Antibodies by CF A titer of 1:8 or greater is generally considered presumptive evidence of histoplasmosis. A titer of 1:32 or greater or rising titers indicate strong presumptive evidence of histoplasmosis. Cross reactions, usually at lower titers, may occur with other fungal diseases. Performed By: #### F CFX #### [facility] (DEFAULT) [address] [place] [address] HISTOPLASMA ANTIGEN, SERUMon 11-18-2022 Histo interpretation Negative Normal [facility] Comment on above: Result Comment: ADDITIONAL INFORMATION Reference interval: None Detected Reportable Range: Positive Results reported in ng/mL from 0.20 ng/mL to 20.00 ng/mL Positive Results above 20.00 ng/mL are reported as 'Above the Limit of Quantification' This test was developed and its performance characteristics determined by [facility]. It has not been cleared or approved by the FDA; however, FDA clearance or approval is not currently required for clinical use. The results are not intended to be used as the sole means for clinical diagnosis or patient management decisions. Test Performed by: [facility] [address] [place] [address] Performed By: #### Y FHIST #### [facility] (DEFAULT) [address] [address] Histoplasma Antigen, Serum Not detected Normal [facility] Comment on above: Performed By: #### Y FHIST #### [facility] (DEFAULT) [address] [address] HISTOPLASMA ANTIGEN,URINEon 11-18-2022 HISTOPLASM AG, URINE Not detected Normal Not Detected [facility] Comment on above: Result Comment: No H istoplasma antigen detected. False negative results may occur. Repeat testing on a new specimen should be considered if clinically indicated. Performed By: #### Y HISTG #### [facility] (DEFAULT) [address] [address] Histoplasma Ag Value Not detected Normal [facility] Comment on above: Result Comment: ADDITIONAL INFORMATION This test has been modified from the safety professional's instructions. Its performance characteristics were determined by [facility] in a manner consistent with CLIA requirements. This test has not been cleared or approved by the U.S. Food and Drug Administration. Test Performed by: [facility] [place] [address] Group Home Counselor: Pedro Warren M.D. Ph.D.; CLIA# [id number] Performed By: #### Y HISTG #### [facility] (DEFAULT) [address] [address] Outside Mammographyon 2022 Outside Mammography [id number] #1.00CD:127 Normal [facility] Coding Summary.on 11-12-2022 Coding Summary. CD:[id number] Gh0bWw+PGhlYWQ+PE1FV OWnT15ksIGzqX0QV5xVB D3RNMQWJTCUBC1LDQ3ps JJ1ZKpzO8NajyZb YjlduBMoBD95MXx9TGQ6 pNsbFLbfgR4pkJKnI6e1 PwEuGC12gE57FNqqTATg NdL6QoAqhyyvrNFi L8jkHmXbkLEoYsc+PHRh YmxlIHdpZHRoPScxMDAl SpUkjJpkJE7wYa1wYJZn LWNvbGxhcHNlOiBj d7zuTKFlGZaaAW6qiGcv A3EuhGT6XLAny7l2Ce61 dHI+LVXkXMC0gTpkWOcf c776PdGnu3npHUO7 qZJlAPadFUX5S11kr1H7 YSRkIGNpESJ8fYD2aZ4d kOojhsqeV9BxkTOnRjW1 TSH1fJBzrF3nwAdj ogppqW4qFci+P03TNW7I VMHZIM5YBxp5R9UkOkdl dHI+SU82DGFcSU77dJOq qITvk1biaXw5NuCj EGKeEBU1wIrzZXgoc1Fn NPLtQ14ecEFio9I4YRMl sTaiuSYhLoQhzMR7wZ4j BJtnzbzon3ynrqwz Cbxcx0vqpe33aF94S33p VTozEBOjCRU7UGJqPCMf jJrwcg1tlG9nPu7+IDxj r8pfs1hhsAn6KtXq NHHksnNwrOmhTMJ1g7Nq Ku43P0QuuXgik7RsIrx6 jd23hQRfs4Q2mFC2BDrh PPHgyE9zWAsdFnW4 VUMhLbJstW00lAXuVRmz Ge1eeHghdDipFD1bLOQr kzxuTONyzG6gZJHfzAEv yTsxSW6sCNLlplbw a564ViEuPCK8GDWgaFBi F6MuvN8iZlQvOOSlDHLf Y2FizBViRQnpB445IVaf JwN7VWVfpyClN0Na IMOrsFgqPsB4b3Q2Bl2R s2WskmriPWF9VJupWLAu CyZwNqVzGsN4H9OlFge7 RIFobIeqZD5jL0Xc OXGyvhdmahqruYU9MZLq VNBuvC85qEOoHUeyCq7u s8Y4e480OGJkSXMswX04 Ak1adUwnNBSjzGXI vW2eeieax6wdabwdYwDd DNExDGc2UMa4MXWrxYkz ZpVqEXM6AnU2RIX0eWMn rO2ejOtmzcnocZ4d Oyc+N16rrC2zSGA9CMT9 qcryYFAgnuYeTD18RB64 W9PfIgdfeMYocIZ+PGRp rhFboBwyBH4mCjCe i0xyn0YiPXvyW9ZoOFLp HXtaZgw8VUIcXLX1hOF9 bA3xKUKaVYoty8G2zXD9 L2PqgzUslf1uh2fb XCHsISlbL29boTVpp7Y3 PFMcnAE2CRDzfXosBoLg uM79Mdx+ONFraVwda7Id Nmdfe7uyj8lxzVu9 IjMwJSIgdmFsaWduPSJ0 p3ElTs04E52ySSgkQWHv OWUcWSDjGSXreAbmcw3v iW0lLl0+PGNvbCB3 wVW9pM0wLTPlUeT4NWuo L685LuNuiUStLstut6ce l0udlQp5CzJrKAHgbmDo jSloOQO1t6CfZg52 J89pVLgiKNKpHFWoJJXe OAHatWukex6nbV3xWw1+ BD8qn5pkgo01iG05nRI+ UEUsNFM6pMgnYSqn UHSwdF7yDUgxYoS5BHBh UqWnlE12mARdAMmwSs3m bSpdsWcfQK9qGLZflusa o142DePfb7nbVRBa uIVnBVwjNXA0V14au0P3 QGWrVGUcRLD7zSM4nM4y bGlnbjogbGVmdDsgdmVy jAkuTSzdMWkmS437 IHRvcDsnPlBhdGllbnQg QsWdAQu2A8LsJhd6URAg kVpwZK8eiHDtLCxcNj0s bAekiSwcCD5zFZGf hjlqc789ZdOih3ovXZWx sMLqRUgoRAE8V35xz2Y0 AWVtGPCqNWY2gUV2gG6h bGlnbjogbGVmdDsg kxWgnWygDXyoQCuzK327 IHRvcDsnPkJpcnRoIERh sTJ1IU23JU90rPBbr6I8 nYO0D4XkPBLhcifw fxsfwUT6BXIzQTIgaB93 Ga3clJvpFv5sACPoWYJ2 XSRxnJLrA8ZxlO8gQsGs LNWjYHElC3DqxWYk EOgbE852RVprYvK1OJOx szJqZ7YbVTIovHhwWcP0 b7W9Ih5MQ6C9VR72NM47 cVWnf2L6xLH4G1Wd NHYzddfecosowFA3MXUa PEMggR81Vc7nkOhrKa6r QYIjCFK9FXZzfDDmQ5Uo xK3jQjWsSVXrMDLa B9UsjXKwXPuvN637XGvy HtJ5VUZujwVeQ4FoYHSy dRuzDsC9u9V6Qc5LFMl0 OY46MF34lOWeb3I9 aXG0T1OwWOVxsjqopvhh pRL3FVVqULHaeM83Ul1c kWltEu8vCJWgRWA2QUTv pWFqG2LshZ1nEkFx AEMnETMbR7DltOFjWBjk H578RVdqOpN1CUYqxuAi Q9TiVUZsqBxqMwQ3w8P9 Bk7FMJGvPI51ICO6 mVI1IF18MI72C2TdSiyo dGFibGU+PHRhYmxlIHdp ZHRoPScxMDAlJyBzdHls YA2bQe4oJQMxXRAa hRcgpBZlPkQig9kfHOUm KArqCC3vyMvxE7QcsBZ0 UKRtf6y3Oi89Q12nY8Zr dXA+RKTlxGC6wGG0 lN8mToOgDnX9KSvkL934 ZfMszOFuSgreq0snz7np vGs2VsM9MUDcuqNwdQqr BSF9i1TaEr00O79l IHdpZHRoPSIxNSUiIHZh zVpbpe4ulM2nLg5+PGNv lZO2lEI3fA4hNzBhXsM2 LZazK256AsDltVEz Yjljz9skz7wgxVy3UtLi IIPppqWzuXbvMFH4x2Pr Gk89F7WicWmwb4HeCjc6 km07iGEew2E8sZV5 L7TxUPYrqubcjKWoxBtz GE3sQBGmivhdTRKieI4n KKIeN9q6FxTwEkI3DYtw V1LwnnX6ARAnxXKl ADyuTAQ7B55cd6M8RZUb TBXzYFR9zJS6kW8lnIwb bjogbGVmdDsgdmVydGlj NPjhEKvqI289DBWk gNvbELTdjZ9qNVXwfSTq iHymWW6nEKYsychrPqDQ UlVOSywgUklDSEFSRDwv dGQ+PUAuBQQ9kLox GSjrLOUlkE0lUUDeB7f3 EoDnXiQ9OQjnB7OoBHMz wydaYu24rX8kAfUfYbV9 FQapL5AwubG4KQNt xNGlBLejZJB0G80wq9F8 QMYiSNVqCJS2yCG5dU6j bGlnbjogbGVmdDsgdmVy jHawSDkoGWcqS728 QLDlrInwVhJ9AvE2OrH5 Jmm9Z0MaTjj3ZFMbqUlw ME0jxRQsHIsvBr5lpLxw nUvhVQ2uEIJacojt WXQjmB2mTGEfnXWkwSqi KX5gJCIovyrwb020DcGl TKM1DESluVWqE3FfxI6r MmNmOPCpUZLoX7Zz kFYaZDruU708TNbmNoI3 MZWtmoEcU2AgMLXtoFbo EtN1t4N5No42HSFWXCSt czwvdGQ+PHRkIHN0 qXgsHQwwNYQnhD0jZEDq X5a5FhDaVgM9PUpeL0Dq QWZufpqvQq88dX9uKsPe ErN0JUmuW6SbjaO8 NXBfbHShLHxuQHW0C40l h3Y4NTYqPKRfGVR0qRP4 mS3obEwmjqbotCFgsPmn dmVydGljYWwtYWxp C826IWQpuIodKj0jsDK0 G0GnFbq3ELRgjDqpFH0v dYEvQEzbPo7qfOyicQdx RS8pYDFfhiwsFVEt jD3iQARrtYCbyFhyJE6z UXAhbzoro844LfRkUKD0 KQIrcKArN2LaiG7sPxEt XGCbGUEdD0AggHBh XSewL813UNlcBtN2RZIw yrFyL9NdJIRnrBbhYfQ4 r9V4Oc3XUYU5ywVivpb7 W8BtUddikTV+PC90 ADDzDR88yQZwbDXfk0vc kUu3GdKvDXUaFEW2nKym SBluq5BpITLbX82sxAPt q9V3YGVozRixwKLb HsVqeQA2pQ6dKEycaxdx e5bkalviJyqpj3htxs36 fC23U29cEFzaCYEkJSZj QAEdRONiuKcvgs8e vU3bQj1+UOAiuRK6lKG0 iS8fDiBxYpG4ZLkjR749 ReLefBBhTluxi0juv4mg gZo7JzZpCLYijfZh eVemBVQ5o3DkKs06V46u IHdpZHRoPSIyMCUiIHZh mMgvkp9meH0wEb2+PC9j w6jopt70nW85oGA+ VRCmEDA6wGrfUUewMUBu nV9zCQtrHdT0QRWrDdXd xB86rWNoSMbwBp0jjPvz qPpnQX6vALEcjtxu m850SeMpd6owYZCfhFKq UOiuCRP5V85ui2E7FNQa KITiDBG5hTC3dA0amBnu bjogbGVmdDsgdmVy gYacORrkQBnvB898ULXg fTxuLxDbyHGdZ6evlkXA JF0uQyhejUC+PHRkIHN0 kSqgFIidFBZmeB2f AXKmO4c9KkYwLuA7JBbs G6KcowO1ALHmjQQhXCLo lIXZoV1wewjma2ptkcld TaLcECQkRCy9QPb5 ODYrwRgtAxIuYDZ6TrM9 KFA2uJZiyN5vaTynipao lP5eYwq+RklOOjwvdGQ+ AHReNAX2aLcgURzt MKYlxR6dNMCfN2l2MyCn AaV4YWpeL1VudsJ4HAUl aSGyPUSdnFYVzX6sgyez b4epcrhfXiOvXTYa UFy4VIt3YYHssUikVhXw XZJ1FjO2VJF5wXIwcX9r uTyrlxpbrB7lOke+TVJO OjwvdGQ+PHRkIHN0 iIiqWGarUIYveG3sSBDn N0x1RnUjIaK6CLiuI9Us piR5GORuqNFaGIKohTAS kB8juodbe9agxmla NgOyBWYcNOg0ROq3EHSn mBelOmHpSTI2YiM2PLW6 jOXneT8mdLmrukpowQ0f Oyc+CWM3JYY8KK88 UK24N9LrDiysvYQpzNW+ PHRhYmxlIHdpZHRoPScx YBRqPlWntLwcRR6iIk5t ZGVyLWNvbGxhcHNl OiBj (more content not included)... Normal [...] attenuation correction and anatomic localization Using the safety professional\X2019\s standard software, data were reconstructed using filtered back projection with and without attenuation correction. A low dose, noncontrast CT provided attenuation correction and anatomic localization of PET abnormalities. This soccer ball assembler CT is not designed to produce, and cannot replace, qthat-qk-toe-art diagnostic CT scans with specific imaging protocols [...] 13.4 Imaging Post Administration (mins): 50 Normal [facility] RAD - MISCon 11-11-2022 RAD - MIS [id number] 2#1.00CD:127 Normal [facility] Coding Summary.on 11-10-2022 Coding Summary. CD:[id number] Gh0bWw+PGhlYWQ+PE1FV IQnL29jtFZngX6OW0lMB E1RKIYUCSNTRJ1GEQ3ib RQ5MKwiR0LszzWg QykjqXOwXX79MZh2IIE7 bDgfEMbemW4xtZQzY1p9 DpPlRU36mI85TJqyIVRr UeY1PrSbcaefnZBw Z9pkWaWjcUVbLnw+PHRh YmxlIHdpZHRoPScxMDAl JpIuuMmfZM1nBl9yAXJq LWNvbGxhcHNlOiBj g7qtQMKdZUzyGT0xxBdh S4BzoUG1TLNus1y9Pv85 dHI+XBAtYRJ3wNyuGHva y137YxIrs1xzLZK6 tHKaCOezCGV3F08xu7G9 FPLtLFXwGUN3zTT0kA2f cTzdkbmkP3MqfPCoPfE6 HCW5xENlrP2wiWtz msqxuD5oKfz+M03YGC5Q RGGNDE6DKaf8T7VgChsk dHI+YL18OFQjHR76xGOo aIJbv7xbqCp3QaZc MXInZHG0zDmsJWslu8Hc CGZgF95rtQKjr6V1ZTZn gYebmTMeBpSdfZE3tP5y RYmewqmbq5npwlca Raxwr3pssk36lP59O29i PSrjUUDcHIF7FKIkWCXc kRkvnw1yeK7xXn4+IDxj u7uza0wxuWh1MlXb IEXoclUlmMazMMP3f0Gu Ur70D5NpaFdsf0KdOrx5 ye65sYYir5H2uGZ0CPbk BTDdiC1xAGfkYdX2 CCUmAeDvpZ10kXPzHKiy Yh5fiXfenMarTY8rXCOp azjkXGFqwV1hNELrhTDz aZvtVT6xREHnbfxy p588XbZuQIR9CGDmdIWc G7ItzS3wNaFjNOUlJYVp F7NjyZTdQAfoN900MVjd IyF6YUOycvBwT6Cf UAVwnEnxLjX3m7L9Gi9G z9DhrfjxPTE8LPcwCKFg HvGqGvZfNlL1C2WaRwu9 RXTchTsmZD8kC3Lx TOSmoabpbpjwgZO2HMOe CILoiY43jHKcDIxwTa7q n8Y6n851ZXQwISAygD19 Tp4fuTloDZUfyRRP yD2wmnjmr1gyryxbOdZs LSLaMSn0QLl0BUSnwCln UyYmVAN2HvE6KYU7tXUr oL0qoSbyukkboV2t Oyc+C43osL0pOYU6SZO1 rkihHYMxslLaAB30OU64 A6ShMwagpTWhxTB+PGRp ivHghDxjDS2oMyVj j3pbb8YiGWwwW5TuROGi TRlfJcv0ZPLyYEP7rAO8 qS0yTDOxDRfbq8P5hEK6 D4RssjPamf4cq4ms UPZuKDudD58hpLVkh0T7 DLBwqJK1OGNmsNzkNtAq rZ86Xnr+QUSeyCjxl7Za Omwdy0ohe6vfkQd5 IjMwJSIgdmFsaWduPSJ0 s2WjVa83D19wPNazYHYj WKJfIKAbDAJygQvuqa9d kF1sPa6+PGNvbCB3 aAR9iI0uAYRbCnR0ERen O342ChEbjSFbYpdms6lv j2dueKh0AmGzPKFvqnXv pYdtGNX1m0RzZs76 P28wKMsjYXZvBVFhRUHk ODGucNpqxm0bdT3tBb3+ CU8vn7hdge43kM67iHB+ HNDiNDV5uInoUNvl LWEpnO9zVAguLtP1MQAf YqWbyC91iBPrEDrhXb1x oAkouUutCB1uQFHojsvv n727YdKha4iaOPTc fWUzXGygAZI9S00uq5K8 JWNrDZRqNGX1zMV3kQ6w bGlnbjogbGVmdDsgdmVy mScdOQerJGxxK819 IHRvcDsnPlBhdGllbnQg KoGyYFx7T5EkBkf3RLFq uMlsAJ0kaPKnFEfzUk8y xPgzwVojZY3uJEJv vdhdz217XhInt9wkTHSo vXIaRJagBJR2V41db1C6 YWYsRZVbTHS7lZC4yY8q bGlnbjogbGVmdDsg kyJcsSwgBDpfPTglP878 IHRvcDsnPkJpcnRoIERh jVL0DP00NA92iVDnk9Z0 jCO2J9OkUYFzkxuq pwtomTO9OLZtNHHuqU37 Qx9nxQwkYt3cIVNiYXX3 WVJuvNNoH6PaaF1kDcRv WOQeKUNoG1ZytSAq UIpsU440OZgeQhM4AZNc tdWiS2BfDTDzgIfaOsO9 k0Z9Es3AQ0W0NY92IZ91 wCAcb6Y0fYH7T3Xo YPMbanmuvbfnyMJ8BBMz YPFrfJ53Kh9ixGbqHi0s ZLPyOIO1FVMojEYmE8Th mR4xVdLwWUGgETLf H6JamTZsZQjtA833XBuc JcV0YGBqkeHxS3DnGTRg hKnvXsK4i9T5Kx7HAFr6 HL34GE02oWLbz4E6 bTY0L1XyFFIneetcyxxx oFA7NAQbTXJwjB61Ii2r dGntTi3gEYMgUGB8UZDh rCYyZ9ZngY8tKwMe MFLyAQZoO2QkuBRjCZps P339RNcuSeY0NBTotpHb A1PtZUWpoEuzRrA7i8Z3 Db2XMPYjHJ69IQC9 nNO1WM33VV38E0SuGxai dGFibGU+PHRhYmxlIHdp ZHRoPScxMDAlJyBzdHls VJ1wZx6mUZTsLRCy iBrlsIBsNfVxp9ovFTEn OMzsUM5ipHchS5AhnFD3 YKTll1n3Fh30R90wH4Oc dXA+YQJacXR3qWN3 vI3rIlXePaF6ZAysH637 AuYwuLDtYisvt1zxi2lr wAs7VhD1VXAwpbCtoWfe RTB2p5WxKn81J46b IHdpZHRoPSIxNSUiIHZh tNetgy1tzR2kSu2+PGNv zIW6nKO6kE5cQjLtEcM9 IRygM606GmTrqMSh Hoqyr6tvf4mljTv2BhOe JEFysgEzyOwvWZR7f7Va Yz35X4YzlFjqi7YtAmx8 kz28uKZrk4J4cAX0 K2RxNGLqzttkhZEtyAij OF2oFOAhzqjfTUKfoT8o WDVwC0g0MyIkDkF3WNmb G5ImgeO9LHWgyGDx RKbeTSK1G12mw3H0YFXn TLRoPDN8zVI4bV5pxTlo bjogbGVmdDsgdmVydGlj NQwuGQpcJ961GCEd dOljLZWjcY9rBNFvcIVb wVitFG7pKYOpluryGiLZ UlVOSywgUklDSEFSRDwv dGQ+ORTfJMJ1lVca HGdvMWMvjR3hFIDnR3n7 MmLpAqU1YTrkK0RqDRNx xkbdXo76zC4aMkUjMzX1 WRmzN9TdyoM1OJDr nPCmAPpwTVJ4L60oi4T1 YPYiEINaDFZ9rPD9jA7x bGlnbjogbGVmdDsgdmVy tYfdGQzzVXltV993 YOVceKpuUzK2UtT3BcD5 Rtg3T4ChYng9JNQkcTno IH3kiIEnDDuvBx9qrCws sFirHA1rGKHpwszb SPZvsI0lOSRrfZLjtEby JB5aMOEydczjw547BeLp WAR2HJHedTYkS5SwgR1d LeGyKSDxTIUiZ0Uv cKUqOCveA064KDnfJcN0 UXKhjvQhO8JjCHIfwSpy CgA9u5L8Df20YPCRWKFe czwvdGQ+PHRkIHN0 yCewUAklQWZloD0mFDWq B2k4OeWfRlY8HIgqW4Fu QLIxwdbmIo04mG8hMlNj PjX3ZBojZ2ElzwK5 RIRvbRHpMNrpSCK5Q50z i4V9SHFiKTDwWZI9iXH4 wR5mnJsecwfsuZSkpKfr dmVydGljYWwtYWxp H031ZVTwsOixUc5phGZ7 D7DyYit0TXEwuWnbJD3a pFDlUTxvZq8zpWwmyHhm OR5mPQYazfakVGYo nU7ePCBblJVtbDtrWJ9u GAHdieemj653OwWlSFR7 MYBseSNeN6IpnF1vIqYl ZCLqTACpI9DbtUFt WGhnA120RAvxYhT2BXUt gnRmD0WaDXChzMrnUeY6 p8B4Zg2KmWNeFRMwXS22 PZ74YC22E0JnEwqk dGFibGU+PHRhYmxlIHdp ZHRoPScxMDAlJyBzdHls YL3bJv6gAEFjSJBrvYtk qOKxLbMlt7qiGSXc EBbeJV0rrPkmT7BgcQO0 HYRco0h4Hg57J45bM2Rl dXA+SZQcrUZ0dOB3yI7f HaPpOyW5EZxxZ990 AcKajMAjDoemm0vad9em iAy8WgJdCLBuptMfaAnh QBA6u7XmCj41S75qJEiy ZHRoPSIyMCUiIHZh iUoxeq3vlK6jOh0+PGNv kWT0xNP6jK5kBiPeKuN5 NMyuG653NwTcxKEgLqlp A72tD7GraLB+PHRy Zeb8SIJkmHhuMO0xkCDj AGjgWk2vABA7QeEjBwOg QVgxE9VlWVGioovkgciq bIS5FISgNJJeoW57 Qr4niIgiNw6rOCVeTTO4 DEZzjYFwX9UpmP0tJuSz OCTrHHZqX7RtgRWnIJtb R719QUdfOoO0SFMk tyRjA4AvNFCvhCwiJtO6 w5X4Vh3BdBvkyOHgSH8u DlNaNJa7Y4WrYzj2LFKu rVuvIR8jlANuZApc Qx4xnUfzeHqzBF2xGSJs gvlxv389WgJps4nuMRQq iFDfUWrwJFE5B43cc0F5 LBNyNNUnJLV2dKR6 yN0xqXeaudfcbENmvYon xnIvkYyyIMemQUgpR887 WZUucXkuNvFIQbh6C4Yt Qos2FYAqtEqnWS9z nKJpITbwTf7fkJvnjAvn FJ1rIIXupjppw140KzUr i8rjAPCebURgHVbrUJA9 C91wl5H1LUDwLQOv LKT2dVK3xS5fhPgpudho bGVmdDsgdmVydGljYWwt ERjeB701FNXcoMnyIh4O Gzf9U2MeZlx7MOIu vZgxAA7poNHnGErpLz5l lJmdnSkeEF8gAPQcmsmh d003XoZmd4xwEEMtoKTe DUfiEMR7L97va6Y7 CJVqDLPlFDZ6vZC5mU3t bGlnbjogbGVmdDsgdmVy lVifIKouABplP159CUIu cDsnPlBheWVyOjwv dGQ+XZ21tu60F1VtCpxj Npg6BDLtELD0qEJ3gK7e BAWoOVezs7N7rNX4E0Ji qxNsbs7mi8tzMDNt ZTog (more content not included)... Normal [facility] Consent for Treatmenton Consent for Treatment [id number] #1.00CD:127 Normal [facility] MG MAMM DIAGNOSTIC 3D REYNALDO CA Don 11-09-2022 MG MAMM DIAGNOSTIC 3D REYNALDO CAD Patient: MIGUEL AWAD Exam Date: 11/09/2022 : 1965 Gender:M Ordering : DR BOB LEZAMA . Admission #: [id number] Family : Order #: [id number] CLICK HERE TO VIEW EXAM RADIOLOGY REPORT [...] lung cancer at age 58. LOCATION: [facility] BREAST COMPOSITION: Scattered areas fibroglandular density. FINDINGS: [...] Ron M.D. on 11/09/2022 at 14:58 Normal [facility] Physician Orderon 11-09-2022 Physician Order [id number] #1.00CD:127 Normal [facility] US BREAST LEFT LIMITEDon US BREAST LEFT LIMITED Patient: MIGUEL AWAD Exam Date: 11/09/2022 : 1965 Gender:M Ordering : DR BOB LEZAMA . Admission #: [id number] Family : Order #: [id number] CLICK HERE TO VIEW EXAM RADIOLOGY REPORT [...] lung cancer at age 58. LOCATION: [facility] BREAST COMPOSITION: Scattered areas fibroglandular density. FINDINGS: [...] M.D. on 11/09/2022 at 14:58 Normal [facility] Progress Note-Physicianon Progress Note-Physician Spoke to patient [...] care provider not available for communication via Cequint system. Normal [facility] Comment on above: Result Comment: [...] 300 Contrast amount in ml's: 100 Normal [facility] Consent for Treatmenton 10-11 Consent for Treatment [id number] #1.00CD:127 Normal [facility] Pre-Certification Formon Pre-Certification Form [id number]# 1.00CD:127 Normal [facility] CHEMISTRYOrdered By: SYSTEM SYSTEM on 09-28-2022 Anion gap [Moles/Vol] 12 mmol/L Normal 6 - 16 mEq/L [facility] [place] Remisol Calcium [Mass/Vol] 8.3 mg/dL Low 8.9 - 11. 1 mg/dL [facility] Chloride [Moles/Vol] 100 mmol/L Low 101 - 1 11 mmol/L [facility] CO2 [Moles/Vol] 24 mmol/L Normal 21 - 31 mmol/L [facility] Creatinine [Mass/Vol] 0.6 mg/dL Normal 0.5 - 1.3 mg/dL [facility] GFR/1.73 sq M.predicted among blacks MDRD (S/P/Bld) [Vol rate/Area] mL/min/1.73 m2 Normal >=59mL/min/1 .73 m2 [facility] Chem S GFR/1.73 sq M.predicted among non-blacks MDRD (S/P/Bld) [Vol rate/Area] mL/min/1.73 m2 Normal >=59mL/min/1 .73 m2 [facility] Chem S Glucose [Mass/Vol] 133 mg/dL Normal [...] rate/Area] mL/min/1.73 m2 Normal >=59mL/min/1 .73 m2 [facility] Chem S Glucose [Mass/Vol] 129 mg/dL Normal [...] rate/Area] mL/min/1.73 m2 Normal >=59mL/min/1 .73 m2 [facility] Chem S Glucose [Mass/Vol] 121 mg/dL Normal [...] 4.7 E12/L Normal 4.3 - 5.9 E12/L [facility] HemeAutoSS WBC corrected for nucl RBC Auto (Bld) [#/Vol] 14.3 E9/L High 4.0 - 11.0 E9/L [facility] HemeAutoSS Laboratory - Microbiology an d Antimicrobial susceptibilityOrdered By: Jeanine Miller on 09-26-2022 Bacteria identified Respiratory culture Nom (Sput) 1+ Normal upper respiratory marina isolated [facility] No Panel InformationOrdered By: ANGPROCESSSERVER MICROBIOLOGY on 09-26-2022 Blood Culture Charcoal No growth at 2 da ys. Final to follow at 7 days. [facility] Blood Culture Charcoal No growth at 2 da ys. Final to follow at 7 days. [facility] No Panel InformationOrdered By: Jeanine Miller on 09-26-2022 GS Occasional epithelial cells 1+ White Blood Cells Occasional Gram Positive Cocci Occasional Gram Positive Rods [facility] CHEMISTRYOrdered By: SYSTEM SYSTEM on 09-25-2022 Lactate [Mass/Vol] 2.7 mmol/L High 0.5 - 2.2 mmol/L [facility] Remisol Troponin I.cardiac [Mass/Vol] 19.80 pg/mL Normal 15.90 - 38.40 pg/mL [facility] Remisol Troponin I.cardiac [Mass/Vol] 23.60 pg/mL Normal 15.90 - 38.40 pg/mL [facility] Remisol Procalcitonin 4.29 ng/mL High 0.00 - 0.50 ng/mL [facility] Remisol Troponin I.cardiac [Mass/Vol] 30.80 pg/mL Normal 15.90 - 38.40 pg/mL [facility] Remisol CHEMISTRYOrdered By: Vicky Morse on 09-25-2022 Lactate [Mass/Vol] 2.0 mmol/L Normal 0.5 - 2.2 mmol/L [facility] Remisol CLINDAMYCIN:SUSC:PT:ISOLATE: ORDQN:MICOrdered By: Jeanine Miller on 09-25-2022 Clindamycin MARILY [Susc] Streptococcus pyogenes (Group A) In 2 of 2 blood culture bottles drawn. Isolated from aerobic and anaerobic bottles Preliminary gram stain result of gram positive cocci in chains Result called to Dr. Mendoza by [facility] and results read back for confirmation on 09/26/2022 11:11:50 [facility] Clindamycin MARILY [Susc]Ordere d By: Jeanine Miller on 09-25-2022 Streptococcus pyogenes (Group A) Streptococcus pyogenes (Group A) [facility] MICRO OTHER TESTSOrdered By: Antwan Pizarro on 09-25-2022 Rapid COV Int NEG Ctl Pass (09/25/22 12:39 AM) Normal [facility] Man Sero Rapid COV Int POS Ctl Pass (09/25/22 12:39 AM) Normal [facility] Man Sero SARS-CoV+SARS-CoV-2 (COVID-19) Ag IA.rapid Ql (Resp) Not Detected (09/25/22 12:39 AM) Normal Not Detected [facility] Man Sero PENICILLIN:SUSC:PT:ISOLATE:O RDQN:MICOrdered By: Jeanine Miller on 09-25-2022 Penicillin MARILY [Susc] Streptococcus pyogenes (Group A) In 2 of 2 blood culture bottles drawn. Isolated from aerobic and anaerobic bottles Preliminary gram stain result of gram positive cocci in chains Result called to Dr. Mendoza by [facility] and results read back for confirmation on 09/26/2022 11:11:24 [facility] Penicillin MARILY [Susc]Ordered By: Jeanine Miller on 09-25-2022 Streptococcus pyogenes (Group A) Streptococcus pyogenes (Group A) [facility] CHEMISTRYOrdered By: SYSTEM SYSTEM on 09-24-2022 Albumin [...] Meir Egan MD 11/01/18 Final result Normal [facility] OPERATIVE REPORTon 9 OPERATIVE REPORT [facility] [address] [id number] OPERATIVE REPORT PATIENT NAME: MIGUEL AWAD : 1965 MED REC NO: [id number] ROOM: ACCOUNT NO: [id number] ADMIT DATE: 10/18/2018 PROVIDER: Bob Vázquez DATE OF PROCEDURE: 10/18/2018 SURGEON: Dr. Bob Vázquez. COUNSELING SERVICES MANAGER: Alanna Rodriguez RN ANESTHESIA: Yvonne Trujillo CRNA; interscalene-general combination. PREOPERATIVE DIAGNOSES: Left shoulder [...] provided. The patient was positioned on the [facility] chair table. Shoulder was examined without adhesive [...] glenoid had mild degenerative changes. There was xgxu-tl-imxbebnl fraying of the labrum. No instability. His [...] 1 to 1.5 cm. There were some hoga-pz-axmkzgqg degenerative characteristics at the tendon but repairable [...] tissues were closed with 2-0 Vicryl suture. Secretary were applied. Bacitracin, Adaptic, well-padded sterile soft dressing with super sling immobilizer placed. The patient was awakened from anesthesia and transferred to the recovery room in stable and satisfactory condition. CASE: Clean and elective. SPONGE AND NEEDLE COUNT: Correct. SPECIMEN: None. PATIENT CONDITION: Satisfactory. BOB VÁZQUEZ MOLINA/Lolly_TTNIR_T Doc#: [id number] CC: Jeremías Vázquez [facility] Basic Metabolic Profon 10-13 (cont.) [facility] Comment on above: Result Comment: Aver age GFR for 50-59 years old: 93 mL/min/1.73sq m Chronic Kidney Disease: <60 mL/min/1.73sq m Kidney failure: <15 mL/min/1.73sq m eGFR calculated using average adult body mass. Additional eGFR calculator available at: http://www.[employer].Laser View/multiple_crcl_2012.htm Performed By: #### C BC, BMP #### [facility] [address] [place] [address] Anion gap molar conc 10 mmol/L Normal 9-17 [facility] Comment on above: Performed By: #### C EV, BMP #### [facility] [address] [place] [address] BUN/CRE Ratio 22 High 9-20 [facility] Comment on above: Performed By: #### C EV, BMP #### [facility] [address] [place] [address] Calcium mass conc 9.9 mg/dL Normal 8.6-10.4 [facility] Comment on above: Performed By: #### C BC, BMP #### [facility] [address] [place] [address] Chloride molar conc 102 mmol/L Normal 98-107 [facility] Comment on above: Performed By: #### C BC, BMP #### [facility] [address] [place] [address] CO2 molar conc 27 mmol/L Normal 20-31 [facility] Comment on above: Performed By: #### C BC, BMP #### [facility] [address] [place] [address] Creatinine mass conc 0.74 mg/dL Normal 0.70-1.20 [facility] Comment on above: Performed By: #### C BC, BMP #### [facility] [address] [place] [address] GFR, Amer >60 Normal >60 [facility] Comment on above: Performed By: #### C BC, BMP #### [facility] [address] [place] [address] GFR,non Amer >60 Normal >60 [facility] Comment on above: Performed By: #### C BC, BMP #### [facility] [address] [place] [address] Glucose mass conc 156 mg/dL High 70-99 [facility] Comment on above: Performed By: #### C BC, BMP #### [facility] [address] [place] [address] Potassium molar conc 4.3 mmol/L Normal 3.7-5.3 [facility] Comment on above: Performed By: #### C BC, BMP #### [facility] [address] [place] [address] Sodium molar conc 139 mmol/L Normal 135-144 [facility] Comment on above: Performed By: #### C BC, BMP #### [facility] [address] [place] [address] Urea nitrogen mass conc 16 mg/dL Normal 6-20 [facility] Comment on above: Performed By: #### C BC, BMP #### [facility] [address] [place] [address] Staging: NOT REPORTED Normal [facility] Comment on above: Performed By: #### C BC, BMP #### [facility] [address] [place] [address] CBCon 10-13-2018 Erythrocyte distribution width Ratio (RBC) 12.4 % Normal 12.1-15.2 [facility] Comment on above: Performed By: #### C BC, BMP #### [facility] [address] [place] [address] Hematocrit Volume Fraction (Bld) 48.4 % Normal 41-53 [facility] Comment on above: Performed By: #### C BC, BMP #### [facility] [address] [place] [address] Hemoglobin mass conc (Bld) 16.3 g/dL Normal 13.5-17.5 [facility] Comment on above: Performed By: #### C BC, BMP #### [facility] [address] [place] [address] MCH Entitic mass (RBC) 29.6 pg Normal 26-34 [facility] Comment on above: Performed By: #### C BC, BMP #### [address] [address] MCHC mass conc (RBC) 33.6 g/dL Normal 31-37 [facility] Comment on above: Performed By: #### Yandy CARRENO, BMP #### [facility] [address] [place] [address] MCV Entitic volume (RBC) 88.0 fL Normal 80-100 [facility] Comment on above: Performed By: #### C EV, BMP #### [facility] [address] [place] [address] Platelets #/vol (Bld) 340 10*3/uL Normal 140-450 [facility] Comment on above: Performed By: #### C BC, BMP #### [facility] [address] [place] [address] RBC #/vol (Bld) 5.50 10*6/uL Normal 4.5-5.9 [facility] Comment on above: Performed By: #### C BC, BMP #### [facility] [address] [place] [address] WBC #/vol (Bld) 8.9 10*3/uL Normal 3.5-11.0 [facility] Comment on above: Performed By: #### C BC, BMP #### [facility] [address] [place] [address] NRBC Automated NOT REPORTED Normal [facility] Comment on above: Performed By: #### C BC, BMP #### [facility] [address] [place] [address] Platelet mean volume Entitic volume (Bld) NOT REPORTED Normal 6.0-12.0 [facility] Comment on above: Performed By: #### C BC, BMP #### [facility] [address] [place] [address] XR CHEST (2 VW)on 10-13-2018 XR CHEST [...] Stephanie Dunn MD 10/13/18 Final result Normal [facility] Vital Signs Date Time Vital Sign Value Performing Clinician Facility 11-18-2022 09:06-0500 Body height 182.9 cm Madiha Ibarra MD Work Phone: [facility] 11-18-2022 09:06-0500 Body mass index (BMI) [Ratio] 37.04 kg/m2 Madiha Ibarra MD Work Phone: [facility] 11-18-2022 09:06-0500 Body temperature 98.1 [degF] Madiha Ibarra MD Work Phone: [facility] 11-18-2022 09:06-0500 Body weight 123.88 kg Madiha Ibarra MD Work Phone: [facility] 11-18-2022 09:06-0500 Diastolic blood pressure 87 mm[Hg] Madiha Ibarra MD Work Phone: [facility] 11-18-2022 09:06-0500 Heart rate 79 /min Madiha Ibarra MD Work Phone: [facility] 11-18-2022 09:06-0500 Respiratory rate 18 /min Madiha Ibarra MD Work Phone: [facility] 11-18-2022 09:06-0500 SaO2% (BldA) [Mass fraction] 97 % Madiha Ibarra MD Work Phone: [facility] 11-18-2022 09:06-0500 Systolic blood pressure 139 mm[Hg] Madiha Iabrra MD Work Phone: [facility] 09-28-2022 09:19-0500 Hourly Rounding [facility] 09-28-2022 09:19-0500 Promise to Return [facility] 09-28-2022 08:19-0500 Hourly Rounding [facility] 09-28-2022 08:19-0500 Promise to Return [facility] 09-28-2022 08:13-0500 Heart rate 104 /min [facility] 09-28-2022 08:13-0500 Respiratory rate 16 /min [facility] 09-28-2022 08:10-0500 SaO2% (BldA) [Mass fraction] 94 % [facility] 09-28-2022 08:07-0500 Heart rate 109 /min [facility] 09-28-2022 08:07-0500 Respiratory rate 18 /min [facility] 09-28-2022 07:50-0500 Heart rate 98 /min [facility] 09-28-2022 07:50-0500 SaO2% (BldA) [Mass fraction] 97 % [facility] 09-28-2022 07:46-0500 Diastolic blood pressure 91 mm[Hg] [facility] 09-28-2022 07:46-0500 Mean blood pressure 110 mm[Hg] [facility] 09-28-2022 07:46-0500 Systolic blood pressure 148 mm[Hg] [facility] 09-28-2022 07:45-0500 Body temperature 98.42 [degF] [facility] 09-28-2022 07:45-0500 Respiratory rate 16 /min [facility] 09-28-2022 07:19-0500 Hourly Rounding [facility] 09-28-2022 07:19-0500 Promise to Return [facility] 09-28-2022 05:00-0500 Blood Pressure Location [facility] 09-28-2022 05:00-0500 Body temperature 98.78 [degF] [facility] 09-28-2022 05:00-0500 Diastolic blood pressure 90 mm[Hg] [facility] 09-28-2022 05:00-0500 Mean blood pressure 106 mm[Hg] [facility] 09-28-2022 05:00-0500 SaO2% (BldA) [Mass fraction] 96 % [facility] 09-28-2022 05:00-0500 Systolic blood pressure 137 mm[Hg] [facility] 09-27-2022 20:00-0500 Body temperature 97.88 [degF] [facility] 09-27-2022 20:00-0500 Diastolic blood pressure 72 mm[Hg] [facility] 09-27-2022 20:00-0500 Systolic blood pressure 153 mm[Hg] [facility] 09-27-2022 16:38-0500 Mean blood pressure 95 mm[Hg] [facility] 09-27-2022 16:38-0500 Body temperature 98.6 [degF] [facility] 09-27-2022 11:00-0500 Blood Pressure Location [facility] 09-27-2022 11:00-0500 Mean blood pressure 93 mm[Hg] [facility] 09-27-2022 09:56-0500 FIO2 28 % [facility] 09-27-2022 08:20-0500 FIO2 28 % [facility] 09-27-2022 07:00-0500 Mean blood pressure 104 mm[Hg] [facility] 09-26-2022 20:06-0500 Mean blood pressure 100 mm[Hg] [facility] 09-26-2022 20:06-0500 Body temperature 100.22 [degF] [facility] 09-26-2022 08:30-0500 FIO2 32 % [facility] 09-25-2022 06:00-0500 Respiratory rate 24 /min [facility] 09-25-2022 04:14-0500 Nursing Progress Note Reason Other: pt taking crackers. [facility] 09-25-2022 04:14-0500 Respiratory rate 25 /min [facility] 09-25-2022 03:34-0500 Nursing Progress Note Reason Other: pt medicated for pain [facility] 09-25-2022 03:34-0500 Respiratory rate 21 /min [facility] 09-25-2022 02:59-0500 Nursing Progress Note Reason Other: antibotic started. pt complains of body aches. repeat vitals done. iv fluids at 250ml/hr [facility] 09-25-2022 01:23-0500 Body temperature 101.12 [degF] [facility] 09-24-2022 23:03-0500 Heart rate 133 /min [facility] Encounters Encounter Date Encounter Type Care Provider Facility Start: 03-18-2023 End: 03-19-2023 ambulatory SAMANTHA LONG Facility:[facility] Start: 12-03-2022 ambulatory PABLO WOLFE (JOHN) Facility:[facility] Start: 11-30-2022 End: 12-01-[address] JEREMÍAS SOTOMAYOR . Facility: Start: 11-18-2022 ambulatory MADIHA Avina ty:[facility] Start: 11-18-2022 ambulatory SELF SELF Facility:[facility] Start: 11-18-2022 End: 11-18-2022 Office outpatient new 60 minutes Madiha Ibarra MD Work Phone: Division of Pulmonary Diseases at [facility] Comment on above: Lung nodule (Primary Dx); Mediastinal lymphadenopathy; Aortic root dilatation Start: 11-16-[address] JEREMÍAS SOTOMAYOR . Facili ty: Start: 11-10-2022 End: 02-10-2023 ambulatory Jeremías Sotomayor Facility:[facility] Start: 11-10-2022 End: 02-09-2023 Recurring Jeremías Sotomayor [facility] Start: 11-09-2022 End: 11-10-[address] BALTAZAR RON Facility: Start: 11-05-2022 End: 11-06-2022 ambulatory Jeremías Sotomayor Facility:[facility] Start: 11-02-2022 End: 11-03-2022 ambulatory ATIF ATKINS Facility: Start: 09-24-2022 End: 09-28-2022 Evaluation and management of inpatient Shahzad BLACKBURN [facility] Start: 11-01-2018 End: 11-04-2018 Patient encounter procedure [facility] Start: 11-01-2018 End: 11-04-2018 Patient encounter procedure [facility] Start: 10-18-2018 End: 10-18-2018 Patient encounter procedure [facility] Start: 10-13-2018 Encounter for preprocedural respiratory examination [facility] Start: 10-13-2018 End: 10-16-2018 Patient encounter procedure [facility] Procedures Date Procedure Procedure Detail Performing Clinician [...] MD [address] [place] [address] Division of Pulmonary Diseases at [facility] Start: 02-17-2023 End: 02-17-2023 Patient encounter procedure 02/17/2023 Appointment Computerized Tomography Scan Samantha Long APRN-MODELING ANALYST [address] [place] [address] Department of Radiology Start: 11-18-2022 End: 11-18-2023 CT Chest WO contrast CT CHEST WITHOUT CONTRAST Imaging Routine Mediastinal lymphadenopathy Lung nodule Expected: 11/18/2022, Expires: 11/18/2023 [facility] Comment on above: Expected: 11/18/2022 , Expires: 11/18/2023 Start: 06-10-2022 Influenza vaccination INFLUENZA VACC INE (#1) [facility] Start: 2017 Prostate specific antigen measurement PROSTATE CANCER SCREENING DISCUSSION [facility] Start: 2017 Zoster vaccine hzv live for subcutaneous use ZOSTER (SHINGLES) VACCINE (1 of 2) [facility] Start: 2012 Screening for malignant neoplasm of colon COLORECTAL CANCER SCREENING DISCUSSION [facility] Start: 2007 Lipid panel LIPID SCREENING [facility] Start: 1986 Third diphtheria, tetanus and acellular pertussis (DTaP) vaccination TDAP (ADULT) [facility] Start: 1982 HIV screening HIV SCREENING DISCUSSI ON [facility] Start: 1965 COVID-19 VACCINE (#1) COVID-19 VACCI NE (#1) [facility] Start: 1965 Hepatitis C screening HEPATITI S C VIRUS SCREENING [facility] Start: 1965 Tetanus vaccination TETANUS [facility] Payers Date Payer Category Payer Unknown KAREN JONES O PPO POS [id number] 2022-Present [address] [place] [address] [id number] 2014 Unknown [id number] 1965 Unknown [id number] 2..[id number] 1965 Unknown [id number] 2.16.840.1.021149.3.579.2.174 1967 Unknown [id number] 2.16.840.1.981574.3.579.2.174 1967 Unknown [id number] 2.16.840.1.756706.3.579.2.174 1967 Unknown [id number] 2.16.840.1.285909.3.579.2.174 1967 Unknown [id number] 2.16.840.1.409417.3.579.2.174 1967 Unknown [id number] 2.16.840.1.773987.3.579.2.174 1967 Unknown [id number] 2.16.840.1.512480.3.579.2.593 1967 Unknown [id number] 2.16.840.1.577112.3.579.2.593 1967 Unknown [id number] 2.16.840.1.176596.3.579.2.593 1967 Unknown [id number] 2.16.840.1.844880.3.579.2.593 1967 Unknown [id number] 2.16.840.1.523038.3.579.2.594 1967 Unknown [id number] 2.16.840.1.626163.3.579.2.594 1967 Unknown [id number] 2.16.840.1.469599.3.579.2.594 1967 Unknown [id number] 2.16.840.1.332132.3.579.2.727 1965 Unknown [id number] 2.16.840.1.022652.3.579.2.727 1967 Unknown [id number] 2.16.840.1.419125.3.579.2.727 1959 Unknown [id number] Social History Date Type Detail Facility Start: 10-28-2020 End: 11-18-2022 Tobacco smoking status Never smoked tobacco (finding) [facility] Sex Assigned At Male [facility] Start: 11-18-2022 Tobacco use and exposure Smokeless tobacco non-user [facility] Start: 1965 Sex Assigned At Not on file [facility] Start: 11-08-2022 End: 11-18-2022 Exposure to SARS-CoV-2 (event) Unable to assess [facility] Functional Status Date Assessment Result Facility 09-25-2022 Functional Status N/A [facility] 09-24-2022 Functional Status [facility] History of Present illness Narrative 11-18-2022 [...] to be getting histo titers drawn at [facility] but hasn't gotten them yet. He did [...] E Calcium Mixed Carotenoids Mixed Tocophenols Lycopene [place] extract Grape seed extract HERBAL PRODUCT Take [...] tablet Take 1 tablet by mouth daily. [place]-3 1000 MG capsule Take 2 capsules by [...] assessment and plan and discussed with the DIRECTORY OPERATOR. My findings are in agreement as outlined [...] 4.3 cm. He agrees. Madiha Ibarra MD Pallet Repairersilo filler Interventional Pulmonary and Critical Care Medicine documented in this encounter [facility] Instructions 11-18-2022 Patient Instructions Note Date & Type Note Facility 11-18-2022 Instructions JUANITA Sheppard - 11/18/2022 9:00 AM EST The blood test result for the risk of the nodule will take 2-3 weeks to come back documented in this encounter [facility] Evaluation + Plan note 09-28-2022 Note Date [...] Sotomayor Within 1 to 2 weeks [address] [place] [address]- Business (1) Additional Instructions: Call physician if [...] made to ensure accuracy, however, inadvertently computerized alodize machine helper mistakes may be present. Dr. Shahzad Blackburn Hospitalist at [facility] Extracted from: Title:Admission H & P Author:Shahzad BLACKBURN MD ate:09/25/22 57-year-old male with past m edical history of obesity, chronic back pain presented to emergency department due to fevers with body ache and chest tightness. 1. CAP (community acquired pneumonia) (J18.9: Pneumonia, unspecified organism) With right lower lobe infiltrate after jjphkwobi-Tbjwucoec-kxkjokzn pneumonia Admit patient for inpatient treatment as [...] CBC w/ Auto Diff Consult to Clinical Riveting Machine Operator Automatic Consult to Dietitian Adult Intake and Output [...] made to ensure accuracy, however, inadvertently computerized alodize machine helper mistakes may be present. Dr. Shahzad Blackburn Hospitalist at [facility] Extracted from: Title:ED Note Author:Augie Manzo MD [...] Metabolic Panel CBC w/ Auto Diff COVID-19 ([facility]) CTA Chest D-Dimer ECG 12 Lead Adult ED Cardiac Monitoring ED Cardiac Monitoring ED Physician consult Hospitalist for continued care eGFR Hepatic Function Panel Oxygen Saturation Oxygen Therapy Procalcitonin PT & PTT Rapid COVID Antigen ([facility]) Respiratory Panel by PCR Saline Lock Insert Troponin 0 Hr. Troponin 3 Hr. Troponin 6 Hr. Troponin 9 Hr. XR Chest 2 Views Addendum by Augie Manzo MD September 25, 2022 06:09:55 EST [...] Tests Radiology* CT Chest w/ Contrast 10/26/22 [facility] Hospital Discharge instructions 09-27-2022 Note Date & [...] Follow these instructions at home: Medicines Take ctqu-aae-nkhptux and prescription medicines only as told by [...] and water are not available, use hand boot and shoe repairman. Contact a health care provider if: You [...] 09/26/2006 Document Revised: 05/24/2019 Document Reviewed: 05/24/2019 [employer] Patient Education 2020 [employer]. 09/27/2022 08:56:53 Sepsis, Diagnosis, Adult Sepsis, Diagnosis, [...] Follow these instructions at home: Medicines Take ebmc-fhw-dphtdgu and prescription medicines only as told by [...] 06/24/2004 Document Revised: 05/04/2019 Document Reviewed: 05/04/2019 [employer] Patient Education 2020 [employer]. Follow Up Care 09/24/2022 22:53:19 With:Jeremías Sotomayor Address: [address] [place] [address]- Business (1) When:10/07/2022 14:00:00 Comments:Follow-up with your primary care doctor and schedule outpatient repeat imaging with 2 view chest x-ray in 4 to 6 weeks to make sure the pneumonia has completely resolved. [facility] Evaluation note Note Date & Type Note Facility Evaluation note Diagnosis Lung nodule- Primary Solitary pulmonary nodule Mediastinal lymphadenopathy Enlargement of lymph nodes Aortic root dilatation Aortic ectasia, unspecified site documented in this encounter [facility] Hospital course Narrative Note Date & Type Note Facility Hospital course Narrative No data available for this section [facility] Hospital Discharge instructions Note Date & Type Note Facility Hospital Discharge instructions No data available for this section [facility] Progress note Note Date & Type Note Facility Progress note No data available for this section [facility] Reason for referral (narrative) Consultation (Routine) - New Request Note Date & Type Note Facility Reason for referral (narrati ve) Specialty Diagnoses / Procedures Referred By Maryanne young Referred To Contact Thoracic Surgery Diagnoses Aortic root dilatation Samantha Long APRN-CNP [address] [place], [place] [id number] Referral ID Status Reason Start Date Expiration Date V isits Requested Visits Authorized [id number] New Request 11/23/2022 12/18/2023 1 1 * MRI/CAT Scan (Routine) - New Request Specialty Diagnoses / Procedures Referred By Maryanne young Referred To Contact Diagnoses Mediastinal lymphadenopathy Lung nodule Procedures CT CHEST WITHOUT CONTRAST CHG DIAGNOSTIC COMPUTED TOMOGRAPHY THORAX W/O CNTRST Samantha Long APRN-CNP [address] [place] [address] Referral ID Status Reason Start Date Expiration Date V isits Requested Visits Authorized [id number] New Request 11/18/2022 12/13/2023 1 1 [facility] Summary Purpose Family History No Family History Records FoundNo Family History Records FoundNo Family History Records FoundNo Family History Records Found Advance Directives No Advanced Directives Records FoundDocuments on File Type Date Recorded Patient Manager Case Expl anation HealthCare Power of Structural Metal Fabricator Apprentice 11/18/2022 9:32 AM HealthCare Power of Structural Metal Fabricator Apprentice 05/25/2001 Additional Source Comments (unrecognized sect ion and content) No Status Records FoundNo Status Records FoundNo Status Records FoundNo Status Records Found INFORMATION SOURCE (unrecogn ized section and content) DATE CREATED AUTHOR 11/16/2018 [facility] DATE CREATED AUTHOR AUTHOR'S ORGANIZ ATION 12/05/2022 [facility] DATE CREATED AUTHOR AUTHOR'S ORGANIZ ATION 01/11/2023 [facility] DATE CREATED AUTHOR AUTHOR'S ORGANIZ ATION 10/12/2023 [facility] Patient Care team informatio n (unrecognized section and content) Personnel Name: Jeremías Sotomayor MD Address: Address: [address] [place] [address] Personnel Name: Jeremías Sotomayor MD Address: Address: [address] [place] [address] Reason for Visit (unrecogniz ed section and [...] BE BASED ON THE PRIMARY CLINICAL RECORDS. [facility] [employer] provides no warranty or guarantee of the accuracy or completeness of information in this document.
== END 2025-07-26 14:56 | disposition home or self-care (01) ==
LOC: CT 14:55
PROVIDERS: PCP Family Medicine; Visit Provider Family Medicine
DX: R91.1 Solitary pulmonary nodule (principal); I71.21 Aneurysm of the ascending aorta, without rupture
CPT/HCPCS: 71275; Q9967

== ENCOUNTER 2025-08-03 09:47 | Outpatient (OUT) | payer BC, SELFPAY ==
--- OUTSIDE RECORDS SUMMARY | 2025-08-03 09:51 | XMS_ITS | Patient Health Record ---
Author Organization [facility] [place] Address [address] [place] [address] Care Team Providers Care Range Aide Name Role Phone ALEJANDRO EVANS MD Primary Care Provider Alejandro Evans Unavailable [phone] Allergies Allergen (clinical drug ingredient) Drug/Non Drug Allergy documented on EMR Reaction Allergy Type Onset Date Status Contrast Allergy PreMed PackUnknownDrug AllergyActive Results Component Value Reference Range Notes CT angio chest Reviewed date:07/28/2025 11:45:37 AM Interpretation: Performing Lab: Notes/Report: Source Facility: [place] [address] CT Scan Report Signed Patient: RUBEN AWAD MR#: [id number] : 1965 Acct:[id number] Age/Sex: 60 / M ADM Date: 07/26/25 Loc: CT Attending Dr: Jeremías Evans M.D. Ordering Physician: Jeremías Evans M.D. Date of Service: 07/26/25 Procedure(s): CT angio chest Accession Number(s): [id number] cc: Jeremías Evans M.D. [place] [id number] Patient Name: RUBEN AWAD MRN: [id number] date: 1965 Sex: M Assigned Patient Location: CT Current Patient Location: CT Accession/Order Number: [id number] Exam Date: 07/26/2025 15:10 Report Date: 07/26/2025 22:14 At the request of: JEREMÍAS EVANS MD Procedure: CT angio chest CTA chest CLINICAL DATA: Pulmonary nodule, aortic aneurysm. TECHNIQUE: Intravenous contrast-enhanced CT angiography of the chest was performed. Axial, sagittal, coronal, and 3D-dimensional reconstructions were created and reviewed. These CT exams were performed using one or more of the following dose reduction techniques: Automated exposure control, adjustment of the mA and/or kV according to patient size, or use of iterative reconstruction technique. COMPARISON: 11/16/2024 . FINDINGS: Chest: Mediastinum:Ascending aorta 4.2 x 4.4 cm. Arch normal caliber 3.0 cm. Descending aorta at the level of the left pulmonary artery measures 2.6 cm. Descending aorta at the level of the diaphragmatic hiatus measures 2.5 x 2.5 cm. Stable cardiac size. No pericardial effusion. Stable mildly prominent right hilar lymph nodes up to 2.1 x 1.5 cm. Lungs:Stable subpleural nodule right lower lobe superior segment 1.1 x 1.0 cm in size. No new or progressive mural nodules. Minimal hypoventilatory change. No focal airspace opacity effusion or pneumothorax. Abd: Fatty infiltration liver.[ Soft tissues/Bones: Degenerative changes of the thoracic spine. [] CT/CT angio chest IMPRESSION: Stable right lower lobe pulmonary nodule and right hilar lymph nodes. Stable ectatic ascending aorta Impression dictated by: Tariq Calderon M.D. 07/26/2025 10:14 PM Dictation Location: [place] [address] Electronically authenticated by: [id number] Y Date: 07/26/2025 22:14 Dictated By: Tariq Calderon M.D. Signed By: 07/26/252215 DD/ 13 TD/TT: Green Plumber: CT angio chest Reviewed date:11/19/2024 07:22:15 PM Interpretation: Performing Lab: Notes/Report: Source Facility: [place] [address] [place] [address] CT Scan Report Signed Patient: RUBEN AWAD MR#: [id number] : 1965 Acct:[id number] Age/Sex: 59 / M ADM Date: 11/16/24 Loc: CT Attending Dr: Jeremías Evans M.D. Ordering Physician: Jeremías Evans M.D. Date of Service: 11/16/24 Procedure(s): CT angio chest Accession Number(s): [id number] cc: Jeremías Evans M.D. [place] [id number] Patient Name: RUBEN AWAD MRN: [facility]:[id number] date: 1965 Sex: M Assigned Patient Location: CT Current Patient Location: Accession/Order Number: [id number] Exam Date: 11/16/2024 08:00 Report Date: 11/19/2024 [...] Signed By: 11/19/24 1512 DD/ 1509 TD/TT: Green Plumber: Reason For Referral No Information Medications Medication SIG (Take, Route, Frequency, Duration) Notes Start Date End Date Status Ondansetron HCl 8 MG 1 tablet as needed Orally 1 every 6-8 hours for 1 week; Duration: 7 days 4ActiveMetoprolol Tartrate 25 MGTAKE 1 TABLET BY MOUTH TWICE A DAY; Duration: 90ActivepredniSONE 50 MG1 tablet with food or milk Orally 13, 7, and 1 hour prior to procedure; Duration: 1 days5Active Social History Tobacco Use: Social History Observation Description Date Details (start date - stop date) Never Smoker NA - NA Tobacco Use/Smoking Question Answer Notes Patient is a nonsmoker Alcohol Screen (Audit-C) Question Answer Notes Did you have a drink containing alcohol in the p ast year? No Lweqvz0TmqguxzwokrnxpWnavydgq Problems Problem Type SNOMED Code ICD Code Onset Dates Problem Status W/U Status Risk Notes Problem Snoring (82074330) Snoring (R06.83) ActiveconfirmedProblemPulmonary nodule (295283622)Pulmonary nodule (R91.1)Active confirmedProblemBronchiolitis (5360474)Bronchiolitis (J21.9)Activeconfirmed ProblemSleep apnea (06824488)Sleep apnea in adult (G47.30)ActiveconfirmedProblem Aneurysm of ascending aorta (disorder) (646136286)Aneurysm of the ascending aorta, without rupture (I71.21)Activeconfirmed Vital Signs Blood pressure diastolic 88 mm Hg 07/12/2025 Kaujxi64 in07/12/2025lood pressure bqhcqtzo800 mm Hg07/12/20254624Xcyowy373.6 lbs 07/12/2025BMI38.59 kg/m207/12/2025 Encounters Encounter Location Date Provider Diagnosis [facility] [address] [place] [address] 07/12/2025 Alejandro Hoy Pulmonary nodule R91 .1 ; Aneurysm of the ascending aorta, without rupture I71.21 and Well adult Z00.00 [facility] [address] [place] [address] 10/11/2024 Alejandro Hoy Aneurysm of the ascending aorta, without rupture I71.21 [facility] [address] [facility] [place] [address] 11/08/2024 Alejandro Evans [facility] [facility] [place] [address] 11/19/2024Doug [facility] [facility] [place] [address]/12/2024Doug [facility] [facility] [place] [address] [facility] [place] [address]/ Bran Assessments Encounter Date Diagnosis (ICD Code) Assessment Notes Treatment Notes Treatment Clinical Notes Section Notes 07/12/2025 Pulmonary nodule (ICD-10 - R91.1 ) 07/12/2025neurysm of the ascending aorta, without rupture (ICD-10 - I71.21) 10/11/2024neurysm of the ascending aorta, without rupture (ICD-10 - I71.21) 07/12/2025Well adult (ICD-10 - Z00.00) Plan Of Treatment [...] (T4/TSH/FREE T3) 4 THYROID PANEL (T4/TSH/FREE T3) 5 THYROID PANEL (T4/TSH/FREE T3) 3 PSA, SCREENING 07/12/2025 PSA, SCREENING 02/03/2024 Lipid Panel 02/03/2024 CMP (COMP MET YANES) w/eGFR CKD-EPI 2024 CBC WITH DIFF 07/12/2025 Insurance Providers Payer Name Payer Address Payer Phone Subscriber Number Group Number Insured Name Patient Relationship to Insured Coverage Start Date Coverage End Date [employer] ACCESS PPO PLUS LOCAL PLAN [address] [place] [address] [id number] Callie Awad - patient is the insured Medical (General) History Medical History History ICD Code Sleep apnea in adult G47.30 Pulmonary nodule R91.1 Snoring R06.83 Hematuria R31.9 Surgical History Surgery Date(Month/Year) Rt. Breast Biopsy Polypectomy-Tubular Adenoma
--- OUTSIDE RECORDS SUMMARY | 2025-08-03 09:51 | XMS_ITS | Clinical Summary ---
Author Organization [facility] Healthcare Address [address] [place] [address] Care Team Providers Care Community Outreach Specialist Name Role Phone Unavailable Primary Care Provider Unavailabl e Social History Tobacco UseTypesPacks/DayYears UsedDateSmoking Tobacco: Never AssessedSex and Gender InformationValueDate RecordedSex Assigned at BirthNot on fileLegal Sex Male12/22/2022 7:09 PM EDTGender IdentityNot on fileSexual OrientationNot on file Last Filed Vital Signs Vital SignReadingTime TakenCommentsBlood Dzrytyiq667/89890 12:00 PM EDT Pulse--Temperature--Respiratory Rate--Oxygen Saturation--Inhaled Oxygen Concentration--Vhbqkn601 kg (271 lb)01/04/2019 12:00 PM LUUSehwai141.9 cm (6') 01/04/2019 12:00 PM EDTBody Mass Index36.75001/04/2019 12:00 PM EDT Plan of Treatment Not on file
--- OUTSIDE RECORDS SUMMARY | 2025-08-03 09:51 | XMS_ITS | Clinical Summary ---
Author Organization [facility] Address [address] [place] [address] Phone Care Team Providers Care Furnace Room Supervisor Name Role Phone Benjamin Sotomayor MD Primary Care Provider + -[phone] Social History Tobacco UseTypesPacks/DayYears UsedDateSmoking Tobacco: Never AssessedSex and Gender InformationValueDate RecordedSex Assigned at BirthNot on fileLegal Sex Male09/03/2022 2:49 PM ESTGender IdentityNot on fileSexual OrientationNot on file Plan of Treatment Not on file Care Teams Team MemberRelationshipSpecialtyStart DateEnd Date Benjamin Sotomayor MD [address] [place] [address] [facility]
--- OUTSIDE RECORDS SUMMARY | 2025-08-03 09:59 | XMS_ITS | CCD ---
Author Organization [facility] Care Team Providers Care Investigator Internal Affairs Name Role Phone BOB VÁZQUEZ Referring Unavailab le ROYALYJEREMÍAS Primary Care Unavailable BOB VÁZQUEZ Referring Unavailab le HOY, JEREMÍAS Mary Primary Care Unavailable BOB VÁZQUEZ Referring Unavailab le ROYALY, JEREMÍSA M Primary Care Unavailable BOB VÁZQUEZ Referring [...] DR VERONICA Admitting Unavailable HOY ., DR VREONICA Attending Unavailable HOY ., DR VERONICA Primary [...] Unavailable JESSE STOVER Referring Unavailable Allergies Allergy ClassificationReported Allergen(s)Allergy TypeDate of OnsetReaction(s) Facility (1 source)Iodinated Diagnostic AgentsPropensity to adverse reactions to drug 17-89-6605Zcvubb and VomitingOS[facility] (1 source)No Known Medication Allergies; Translations: [No Known Medication Allergies]Propensity to adverse reactions (disorder)[facility] Repository Medications Current Medications MedicationDrug Class(es)DatesSig (Normalized)Sig (Original)amoxicillin 875 mg / clavulanate 125 mg oral tablet (1 source)Penicillin-class AntibacterialStart: 09-27-2022 End: 19-71-7393fvhh 1 tablet by mouth every twelve hoursAugmentin 875 mg oral tablet = 1 tab(s), Oral, q12hr, X 7 day(s), # 14 tab(s), Refills(s) 0, Pharmacy: [facility], 184, cm, 09/24/22 23:10:00 EST, Height/Length Dosing, 123.6, kg, 09/24/22 23:10:00 EST, Weight Dosing Start Date: 09/27/22 Stop Date: 10/04/22 Status: Ordereddocosahexaenoic acid 120 mg / eicosapentaenoic acid 180 mg oral capsule (1 source)take 2 capsules by mouth once dailyOmega-3 1000 MG capsule Take 2 capsules by mouth daily. 0 Xdtxjm07 hr guaiFENesin 600 mg extended release oral tablet (1 source)Start: 09-27-2022 End: 23-80-0172lmcw 2 tablets by mouth twice dailyMucinex 600 mg Tab-ER 1,200 mg = 2 tab(s), Oral, BID, X 5 day(s), # 20 tab(s), Refills(s) 0, Pharmacy: [facility], 184, cm, 09/24/22 23:10:00 EST, Height/Length Dosing, 123.6, kg, 09/24/22 23:10:00 EST, Weight Dosing Start Date: 09/27/22 Stop Date: 10/02/22 Status: OrderedHERBAL PRODUCT (4 sources)take 2 tablets by mouth once dailyHERBAL PRODUCT Take 2 tablets by mouth daily. CellWise: Vitamin A, C, E Calcium Mixed Carotenoids Mixed Tocophenols Lycopene Saxon extract Grape seed extract 0 Activetake 2 capsules by mouth once dailyHERBAL PRODUCT Take 2 capsules by mouth daily. ProvexCV Grape see extract Reseveratrol Green tea leaf extract Proteases Quercetin Powder Bilberry fruit extract Ginkgo Biloba leaf extract 0 Activetake 2 tablets by mouth once dailyHERBAL PRODUCT Take 2 tablets by mouth daily. Recover AI Devil's Claw Bijal root Chokeberry Green tea Flower gigas Turmeric 0 Activetake 1 capsule by mouth once dailyHERBAL PRODUCT Take 1 capsule by mouth daily. Florify Lactobacilus Bifidobacterium Frctooligosaccharides 0 ActiveMulti Vitamin+ (2 sources)Start: 29-05-9667esni 1 tablet by mouth once dailyMulti Vitamin+ 1 tab(s), Oral, Daily, Refill(s) 0, Prophylaxis Start Date: 08/22/20 Status: OrderedMultivitamin w/ minerals tablet (1 source)take 1 tablet by mouth once dailyMultivitamin w/ minerals tablet Take 1 tablet by mouth daily. 0 ActiveVitamin D (2 sources)Start: 48-85-0040uruv 1 tablet by mouth once dailyVitamin D 1 tab, Oral, Daily, Prophylaxis Start Date: 10/20/20 Status: Ordered Problems Active Problems Problem ClassificationProblemDateDocumented DateEpisodic/ChronicAortic; peripheral; and visceral artery aneurysms (3 sources)Aortic root dilatation; Translations: [Thoracic aortic ectasia]Onset: 10-35-9111JzqbgqtFtehrxl dysrhythmias (1 source)Tachyarrhythmia ; Translations: [Tachycardia, unspecified]Onset: 67-76-6315EyydupvfPppbnljk of white blood cells (1 source)Leukocytosis; Translations: [Elevated white blood cell count, unspecified]Onset: 12-41-1121VafknieYdhpj and electrolyte disorders (1 source)Hypo-osmolality and or hyponatremia; Translations: [Hypo-osmolality and hyponatremia]Onset: 04-64-4632VloxveutAfmplcmzh (1 source)Influenza; Translations: [Influenza due to unidentified influenza virus with other respiratory manifestations]Onset: 63-04-1029IhdhwvmaPiigo disorders and dislocations; trauma-related (2 sources)Other articular cartilage disorders, left shoulder; Translations: [Other articular cartilage disorders, left shoulder]Onset: 17-28-2634Kufqmao Lymphadenitis (4 sources)Mediastinal lymphadenopathy; Translations: [Localized enlarged lymph nodes]Onset: 61-80-6253MpetiospAxhrbwxscafy breast conditions (6 sources)Breast lump; Translations: [Unspecified benign mammary dysplasia of right breast]Onset: 383560-32-7432CjaelgtzLyufd and unspecified benign neoplasm (2 sources)Tubular adenoma of aydca93-31-9578YdziqpkzLqpio connective tissue disease (2 sources)Unspecified rotator cuff tear or rupture of left shoulder, not specified as traumatic; Translations: [Unspecified rotator cuff tear or rupture of left shoulder, not specified as traumatic]Onset: 06-08-1336ZyqacxehLjzuj connective tissue disease (2 sources)Impingement syndrome of left shoulder; Translations: [Impingement syndrome of left shoulder]Onset: 36-84-7692EdiobumcUkypv gastrointestinal disorders (2 sources)Occult blood in htogqb08-46-2788DovswzwpBcnrz lower respiratory disease (2 sources)Nodule of lung; Translations: [Solitary pulmonary nodule]Onset: 78-91-5146BbrorxjmAuzxm lower respiratory disease (2 sources)Solitary pulmonary nodule; Translations: [Solitary pulmonary nodule] Onset: 13-85-3436EgcwqzmhNrdvy lower respiratory disease (2 sources)Other nonspecific abnormal finding of lung field; Translations: [Other nonspecific abnormal findingof lung field]Onset: 17-94-9699BptbvfwuCvapx lower respiratory disease (1 source)Abnormal findings on diagnostic imaging of lung; Translations: [Other nonspecific abnormal finding of lung field]EpisodicOther lower respiratory disease (1 source)Solitary nodule of lung; Translations: [Solitary pulmonary nodule] EpisodicOther non-traumatic joint disorders (1 source)Pain in left shoulder; Translations: [Pain in left shoulder]Onset: 68-50-5894LsqcryfvGbdbp nutritional; endocrine; and metabolic disorders (1 source)Obesity; Translations: [Obesity, unspecified]Onset: 58-46-9105Gvxlqrh Pneumonia (except that caused by tuberculosis or sexually transmitted disease) (1 source)Pneumonia; Translations: [Pneumonia, unspecified organism]Onset: 36-26-5922YwxgzsszVkspntmz codes; unclassified (4 sources)Obstructive sleep apnea (adult) (pediatric); Translations: [OBSTRUCTIVE SLEEP APNEA]Onset: 04-01-3619DlzuzavFmxjomqi codes; unclassified (1 source)Procedure carried out on subject; Translations: [Encounter for prophylactic measures, unspecified]Onset: 43-70-0138PdwzrnlhLkdijgqvgr (except in labor) (1 source)Sepsis; Translations: [Sepsis, unspecified organism]Onset: 09-25-2022 EpisodicSpondylosis; intervertebral disc disorders; other back problems (2 sources)Low back uljj85-71-3831QdtnsqgcQnnevbj and strains (2 sources)Strain of muscle, fascia and tendon of other parts of biceps, left arm, initial encounter; Translations: [Strain of muscle, fascia and tendon of other parts of biceps, left arm, initial encounter]Onset: 77-01-3877Pnngskjf Unclassified (4 sources)Lt Shoulder RC IS Bicep partial tear; Translations: [Lt Shoulder RC IS Bicep partial tear]Onset: 95-50-4952Eorbnzgsgdrf (2 sources)LEFT SHOULDER ROTATOR CUFF IMPINGEMENT SYNDROME AND PARTIAL BICEP TEAR; Translations: [LEFT SHOULDER ROTATOR CUFF IMPINGEMENT SYNDROME AND PARTIAL BICEP TEAR]Onset: 44-11-0640Bszhdvfkewrp (1 source)Aneurysm of the ascending aorta, without rupture; Translations: [Aneurysm of the ascending aorta, without rupture]Onset: 12-03-2022 Past or Other Problems Problem ClassificationProblemDateDocumented DateEpisodic/ChronicMood disorders (1 source)Mood disordersOnset: 644390-34-7371Fzfwaswlzyih (1 source)Aneurysm of the ascending aorta, without rupture; Translations: [Aneurysm of the ascending aorta, without rupture]Onset: 12-03-2022 Results Test NameValueInterpretationReference RangeFacilityCTA Cheston 39-57-0111FDJ ChestExam Date/Time: 03/18/2023 16:12 EDT Reason for Exam: [...] Contrast: Isovue 370 Contrast amount in ml's: 100NormalFisher Saint Luke InstituteConsent for Treatmenton 51-43-6736Kskimir for Treatment [id number]:127PrachiOhioHealth Arthur G.H. Bing, MD, Cancer CenterPhysician Orderon [id number] Order [id number]#1.00CD:127[facility] HospitalPre-Certification Formon 94-53-4343Geq-Certification Form [id number]#1.00CD:127[facility] HospitalBLASTOMYCES, SERUMon 42-16-4940PAQJNTNJMBD AG, SERUM INTERPRETATION NegativeOSMansfield HospitalComment on above: ADDITIONAL INFORMATION Reference interval: None Detected Results reported as ng/mL in 0.2 - 14.7 ng/mL range Results above the limit of detection but below 0.2 ng/mL are reported as 'Positive, Below the Limit of Quantification' Results above 14.7 ng/mL are reported as 'Positive, Above the Limit of Quantification' This test was developed and its performance characteristics determined by [facility]. It has not been cleared or approved by the FDA; however, FDA clearance or approval is not currently required for clinical use. The results are not intended to be used as the sole means for clinical diagnosis or patient management decisions. Test Performed by: [facility] [address] [place] [address] [place] [address] BLASTOMYCES AG, SERUM RESULTNot detectedng/mLOSU [facility]c [facility] HospitalOS[facility] HospitalFUNGAL COMP. FIX. BATTERYon 48-08-6041GYNAYOTRYKA CF ANTIBODY<1:8 Reference range: <1:8 INTERPRETIVE INFORMATION: Aspergillus Antibodies by CF A titer of 1:8 or greater suggests Aspergillus infection or allergy. Cross-reactions with dimorphic fungi are not unusual within the genus Aspergillus. Performed By: [facility] [address] [place] [id number] Rodding Anode Worker: Kwan Whitten MD, PhD Performed at [facility], [address] [place] [address]MFWSCCI Hospital LimaBLASTOMYCES CF ANTIBODY0.6 Reference range: <=0.9 Unit: IV INTERPRETIVE INFORMATION: Blastomyces Antibodies EIA, SER 0.9 IV or less.......Negative 1.0-1.4 IV...........Equivocal 1.5 IV or greater....Positive [facility] Hospital LimaCOCCIDIOIDES CF ANTIBODY<1:2 Reference range: <1:2 INTERPRETIVE INFORMATION: Coccidioides Ab [...] meningitis will not have antibody in CSF. [facility] Hospital LimaH. capsulatum yeast phase Ab CF (S) [Titer]<1:8 Reference range: <1:8 INTERPRETIVE INFORMATION: Histoplasma Yeast Antibodies by CF A titer of 1:8 or greater is generally considered presumptive evidence of histoplasmosis. A titer of 1:32 or greater or rising titers indicate strong presumptive evidence of histoplasmosis. Cross reactions, usually at lower titers, may occur with other fungal diseases. [facility] Hospital LimaHISTOPLASMA MYCELIAL CF AB<1:8 Reference range: <1:8 INTREPRETIVE INFORMATION: Histoplasma Mycelia Antibodies by CF A titer of 1:8 or greater is generally considered presumptive evidence of histoplasmosis. A titer of 1:32 or greater or rising titers indicate strong presumptive evidence of histoplasmosis. Cross reactions, usually at lower titers, may occur with other fungal diseases. [facility] Hospital LimaOSMansfield HospitalHISTOPLASMA ANTIGEN, SERUMon 11-22-2022H. capsulatum Ag IA Qn (S)Not detectedng/mLOSMansfield Hospital Histo interpretationNegativeOSMansfield HospitalComment on above: ADDITIONAL INFORMATION Reference interval: None Detected Reportable Range: Positive Results reported in ng/mL from 0.20 ng/mL to 20.00 ng/mL Positive Results above 20.00 ng/mL are reported as 'Above the Limit of Quantification' This test was developed and its performance characteristics determined by [facility]. It has not been cleared or approved by the FDA; however, FDA clearance or approval is not currently required for clinical use. The results are not intended to be used as the sole means for clinical diagnosis or patient management decisions. Test Performed by: [facility] [address] [facility] [place] [address] [facility] Hospital LimaBLASTOMYCES, URINEon 11-20-2022. dermatitidis Ag IA Ql (U)Not detectedNot DetectedSCCI Hospital LimaComment on above:No Blastomyces antigen detected. False negative results may occur. Repeat testing on a new specimen should be considered if clinically indicated. BLASTOMYCES AG, URINE INTERPRETATIONNot detectedng/mLOSU [facility] Comment on above: ADDITIONAL INFORMATION This test was developed and its performance characteristics determined by [facility] in a manner consistent with CLIA requirements. This test has not been cleared or approved by the U.S. Food and Drug Administration. Test Performed by: [facility] [place] [address] Spinner Open End: Pedro Warren M.D. Ph.D.; CLIA# [id number] [facility] LimaHISTOPLASMA ANTIGEN,URINEon 11-20-2022H. capsulatum Ag (U) [Mass/Vol]Not detectedng/mLOSU Uc West Chester HospitalComment on above: ADDITIONAL INFORMATION This test has been modified from the heel shaper's instructions. Its performance characteristics were determined by [facility] in a manner consistent with CLIA requirements. This test has not been cleared or approved by the U.S. Food and Drug Administration. Test Performed by: [facility] - [facility] [address] [place] [address] Spinner Open End: Pedro Warren M.D. Ph.D.; CLIA# [id number] H. capsulatum Ag IA Ql (U)Not detectedNot DetectedOSMansfield Hospital Comment on above:No Histoplasma antigen detected. False negative results may occur. Repeat testing on a new specimen should be considered if clinically indicated. [facility] LimaBLASTOMYCES, SERUMon 37-88-2887QJOIKKUCPTI AG, SERUM INTERPRETATIONNegativeBrown Memorial HospitalComment on above:Result Comment: ADDITIONAL INFORMATION Reference interval: None Detected Results reported as ng/mL in 0.2 - 14.7 ng/mL range Results above the limit of detection but below 0.2 ng/mL are reported as 'Positive, Below the Limit of Quantification' Results above 14.7 ng/mL are reported as 'Positive, Above the Limit of Quantification' This test was developed and its performance characteristics determined by [facility]. It has not been cleared or approved by the FDA; however, FDA clearance or approval is not currently required for clinical use. The results are not intended to be used as the sole means for clinical diagnosis or patient management decisions. Test Performed by: [facility] [address] [place] [address], [place] [address]Csjtsifqe By: #### YFBMS #### [facility] (DEFAULT) [address] [address]FUBNNZXWKBV AG, SERUM RESULTNot detectedBrown Memorial HospitalComment on above:Performed By: #### YFBMS #### [facility] (DEFAULT) [address] [address]CJPUDVZFTSP, URINEon 24-97-5687KTPAJMHHEGF AG, URINE INTERPRETATIONNot detectedBrown Memorial Hospital Comment on above:Result Comment: ADDITIONAL INFORMATION This test was developed and its performance characteristics determined by [facility] in a manner consistent with CLIA requirements. This test has not been cleared or approved by the U.S. Food and Drug Administration. Test Performed by: [facility] - [facility] [address] [place] [address] Spinner Open End: Pedro Warren M.D. Ph.D.; CLIA# [id number] By: #### YFBMU #### [facility] (DEFAULT) [address] [address]YUYFPUOZPVD AG, URINE RESULTNot detectedNormalNot DetectedPromedica Flower HospitalComment on above:Result Comment: No Blastomyces antigen detected. False negative results may occur. Repeat testing on a new specimen should be considered if clinically indicated.Performed By: #### YFBMU #### [facility] (DEFAULT) [address] [place] [address]USWQNY COMP. FIX. BATTERYon 60-63-9314MMJAQCDJOBN CF ANTIBODY NormalPromedica Flower HospitalComment on above:Result Comment: <1:8 Reference range: <1:8 INTERPRETIVE INFORMATION: Aspergillus Antibodies by CF A titer of 1:8 or greater suggests Aspergillus infection or allergy. Cross-reactions with dimorphic fungi are not unusual within the genus Aspergillus. Performed By: [facility] [address] [place] [address] Rodding Anode Worker: Kwan Whitten MD, PhD Performed at [facility], [address] [place] [address]Pjotyxrmd By: #### FCFX #### [facility] (DEFAULT) [address] [address]CFONYGHIDCV CF ANTIBODYNormalOMercy Health Anderson HospitalComment on above:Result Comment: 0.6 Reference range: <=0.9 Unit: IV INTERPRETIVE INFORMATION: Blastomyces Antibodies EIA, SER 0.9 IV or less.......Negative 1.0-1.4 IV...........Equivocal 1.5 IV or greater....PositivePerformed By: #### FCFX #### [facility] (DEFAULT) [address] [address]VNFRTKUOZJGG CF ANTIBODYNoMercy Health Kings Mills HospitalComment on above:Result Comment: <1:2 Reference range: <1:2 INTERPRETIVE INFORMATION: [...] coccidioidal meningitis will not have antibody in CSF.Performed By: #### FCFX #### [facility] (DEFAULT) [address] [address]PCFZFIVZMLM MYCELIAL CF [facility] InstituteComment on above:Result Comment: <1:8 Reference range: <1:8 INTREPRETIVE INFORMATION: Histoplasma Mycelia Antibodies by CF A titer of 1:8 or greater is generally considered presumptive evidence of histoplasmosis. A titer of 1:32 or greater or rising titers indicate strong presumptive evidence of histoplasmosis. Cross reactions, usually at lower titers, may occur with other fungal diseases.Performed By: #### FCFX #### [facility] (DEFAULT) [address] [address]Zsiqjoyaknk Yeast CF AntibodyNoMercy Health Kings Mills HospitalComment on above:Result Comment: <1:8 Reference range: <1:8 INTERPRETIVE INFORMATION: Histoplasma Yeast Antibodies by CF A titer of 1:8 or greater is generally considered presumptive evidence of histoplasmosis. A titer of 1:32 or greater or rising titers indicate strong presumptive evidence of histoplasmosis. Cross reactions, usually at lower titers, may occur with other fungal diseases.Performed By: #### FCFX #### [facility] (DEFAULT) [address] [address]URJUWGFLQDO ANTIGEN, SERUMon 07-75-7980Kieqx interpretation NegativeNoMercy Health Kings Mills HospitalComment on above:Result Comment: ADDITIONAL INFORMATION Reference interval: None Detected Reportable Range: Positive Results reported in ng/mL from 0.20 ng/mL to 20.00 ng/mL Positive Results above 20.00 ng/mL are reported as 'Above the Limit of Quantification' This test was developed and its performance characteristics determined by [facility]. It has not been cleared or approved by the FDA; however, FDA clearance or approval is not currently required for clinical use. The results are not intended to be used as the sole means for clinical diagnosis or patient management decisions. Test Performed by: [facility] [address] [place] [address] [place] [address]Zazmiuzmr By: #### YFHIST #### [facility] (DEFAULT) [address] [address]Dooglhxwixp Antigen, SerumNot detectedBrown Memorial HospitalComment on above:Performed By: #### YFHIST #### [facility] (DEFAULT) [address] [address]EGQZLNVUVIX ANTIGEN,URINEon 37-78-7021LFTIKBHSSJ AG, URINENot detectedNormalNot DetectedPromedica Flower HospitalComment on above:Result Comment: No Histoplasma antigen detected. False negative results may occur. Repeat testing on a new specimen should be considered if clinically indicated.Performed By: #### YHISTG #### [facility] (DEFAULT) [address] [address]Xccchbgzjxy Ag ValueNot detectedBrown Memorial HospitalComment on above:Result Comment: ADDITIONAL INFORMATION This test has been modified from the heel shaper's instructions. Its performance characteristics were determined by [facility] in a manner consistent with CLIA requirements. This test has not been cleared or approved by the U.S. Food and Drug Administration. Test Performed by: [facility] [address] [place] [address] Spinner Open End: Pedro Warren M.D. Ph.D.; CLIA# [id number] By: #### YHISTG #### [facility] ([facility]) [address] [place], [place] [address]Outside Mammographyon 98-36-1439Qtmgsmt Mammography [id number]#[id number]:127[facility] HospitalCoding Summary.on 56-22-5396Yxdvpk Summary. CD:[id number]:[id number]+PGhlYWQ+JW0RZQTzI77nbIOvmV2KN0lVXS1YLMQLWMHGUU7BSA7ki RF7RVbvH7DclnBz [file] OiBj (more content not included)...[facility] PET w/ CT Scan Skull Base to Midthighon 19-41-4759VR PET w/ CT Scan Skull Base to MidthighExam Date/Time: 11/11/2022 07:34 EST Reason for Exam: [...] attenuation correction and anatomic localization Using the heel shaper\X2019\s standard software, data were reconstructed using filtered back projection with and without attenuation correction. A low dose, noncontrast CT provided attenuation correction and anatomic localization of PET abnormalities. This warp trucker CT is not designed to produce, and cannot replace, orrgu-mw-wqh-art diagnostic CT scans with specific imaging protocols [...] F-18 FDG): 13.4 Imaging Post Administration (mins): 50NormalCommunity Memorial HospitalRAD - MISCon 71-43-3023ULB - [id number]:127 [facility] HospitalCoding Summary.on 79-38-5375Jgcthn Summary. CD:[id number]:[id number]+PGhlYWQ+ET9LNWNkW84xzBBflO0ES2yLFV7FWVLUHNHWOC2WLC8sf NR1TThaH6PlmzQs [file] ZTog (more content not included)...[facility] HospitalConsent for Treatmenton 88-52-0087Umgmwdg for Treatment [id number]#1.00CD:127NormalCommunity Memorial HospitalMG MAMM DIAGNOSTIC 3D REYNALDO CADon 13-34-0254JX MAMM DIAGNOSTIC 3D REYNALDO CAD Patient: MIGUEL AWAD Exam Date: 11/09/2022 : 1965 Gender:M Ordering : DR BOB LEZAMA . Admission #: [id number] Family : Order #: [id number] CLICK HERE TO VIEW EXAM RADIOLOGY REPORT [...] lung cancer at age 58. LOCATION: [facility] BREAST COMPOSITION: Scattered areas fibroglandular density. FINDINGS: [...] by: Baltazar Ron M.D. on 11/09/2022 at 14:58NoCorey HospitalPhysician Orderon 44-33-4087Pvqrylzii Order [id number]:127NormalFisher Saint Luke InstituteUS BREAST LEFT LIMITEDon 81-01-6230DU BREAST LEFT LIMITEDPatient: MIGUEL AWAD Exam Date: 11/09/2022 : 1965 Gender:M Ordering : DR BOB LEZAMA . Admission #: [id number] Family : Order #: [id number] CLICK HERE TO VIEW EXAM RADIOLOGY REPORT [...] lung cancer at age 58. LOCATION: [facility] BREAST COMPOSITION: Scattered areas fibroglandular density. FINDINGS: [...] by: Baltaazr Ron M.D. on 11/09/2022 at 14:58NoCorey HospitalProgress Note-Physicianon 43-79-6434Otndptnd Note-PhysicianSpoke to patient regarding his abnormal CT scan [...] care provider not available for communication via [employer] portal system.[facility] HospitalComment on above:Result Comment: Electronically Signed By: GENIE ROSEN, Shahzad Ruvalcaba\.shukri\Date and Time Signed: 11/08/22 07:45 ESTCT Chest w/ Contraston 13-02-4150WE Chest w/ ContrastExam Date/Time: 11/05/2022 16:47 EST Reason for Exam: [...] remains lobulated with some minimal persistent surrounding micronodularity/groundglass opacities. While the interval since the previous chest CT (6 weeks) is relatively short, the lack of resolution and continued lobulated appearance of this nodule raises concern for malignancy. Recommendations for follow-up based on Fleischner guidelines for management of pulmonary nodules with these features include PET- CT or tissue sampling. If such studies are [...] Contrast: Isovue 300 Contrast amount in ml's: 100Blanchard [facility] HospitalConsent for Treatmenton 97-40-4676Bbyezfq for Treatment [id number]#1.00CD:[address] [place], [place] [address]Pre-Certification Formon 21-66-3608Zrw-Certification Form [id number]#1.00CD:[address] [place], [place] [address]CHEMISTRYOrdered By: SYSTEM SYSTEM on 55-28-3859Hubit gap [Moles/Vol]12 mmol/LNormal6 - 16 mEq/LFTMC RemisolCalcium [Mass/Vol]8.3 mg/dLLow8.9 - 11.1 mg/dLFTMC RemisolChloride [Moles/Vol]100 mmol/UVpy073 - 111 mmol/LFTMC Remisol CO2 [Moles/Vol]24 mmol/QBhfgxc25 - 31 mmol/LFTMC RemisolCreatinine [Mass/Vol]0.6 mg/dLNormal0.5 - 1.3 mg/dLFTMC RemisolGFR/1.73 sq M.predicted among blacks MDRD (S/P/Bld) [Vol rate/Area]mL/min/1.73 b3Jlxveg>=59mL/min/1.73 m2[facility] Chem S GFR/1.73 sq M.predicted among non-blacks MDRD (S/P/Bld) [Vol rate/Area] mL/min/1.73 g7Lykfzy>=59mL/min/1.73 m2[facility] Chem SGlucose [Mass/Vol]133 mg/dL Jeamai09 - 199 mg/dLFTMC RemisolPotassium [Moles/Vol]3.9 mmol/LNormal3.5 - 5.3 mmol/LFTMC RemisolProcalcitonin1.69 ng/mLHigh0.00 - 0.50 ng/mLFT RemisolSodium [Moles/Vol]132 mmol/VOdh873 - 145 mmol/LFTMC RemisolUrea nitrogen [Mass/Vol]14 mg/dLNormal5 - 21 mg/dLFTMC RemisolUrea nitrogen/Creatinine [Mass ratio]23 mg/mg High10 - 20[facility] RemisolHEMATOLOGYOrdered By: SYSTEM SYSTEM on 09-28-2022 Basophils/100 WBC (Bld)1.0 %Normal0.0 - 2.0 %[facility] HemeAutoSSBasophils/Leukocytes Auto (Bld) [Pure # fraction]0.1 E9/LNormal0.0 - 0.2 E9/LFTMC HemeAutoSS Eosinophils/100 WBC (Bld)1.4 %Normal0.0 - 8.0 %[facility] HemeAutoSS Eosinophils/Leukocytes Auto (Bld) [Pure # fraction]0.2 E9/LNormal0.0 - 0.5 E9/L [facility] HemeAutoSSLymphocytes/100 WBC (Bld)11.4 %Low14.0 - 50.0 %[facility] HemeAutoSS Lymphocytes/Leukocytes Auto (Bld) [Pure # fraction]1.4 E9/LNormal1.0 - 4.0 E9/L [facility] HemeAutoSSMonocytes/100 WBC (Bld)9.9 %Normal4.0 - 14.0 %[facility] HemeAutoSS Monocytes/Leukocytes Auto (Bld) [Pure # fraction]1.2 E9/LHigh0.2 - 1.0 E9/LFTMC HemeAutoSSNeutrophils/100 WBC (Bld)76.3 %High36.0 - 75.0 %[facility] HemeAutoSS Neutrophils/Leukocytes Auto (Bld) [Pure # fraction]9.6 E9/LHigh2.0 - 7.5 E9/L [facility] HemeAutoSSHEMATOLOGYOrdered By: Bob Walton on 70-89-0726Nbxbyedpgso distribution width (RBC) [Ratio]13.7 %Tkdpnb65.9 - 14.2 %[facility] HemeAutoSS Hematocrit (Bld) [Volume fraction]37.6 %Low37.7 - 49.0 %[facility] HemeAutoSS Hemoglobin (Bld) [Mass/Vol]12.8 g/dLLow13.5 - 17.5 gm/dLFTMC HemeAutoSSMCH (RBC) [Entitic mass]28.9 daHmirwd69.0 - 34.0 pgFTMC HemeAutoSSMCHC (RBC) [Mass/Vol] 33.9 g/uFJuguxg54.4 - 36.0 gm/dLFTMC HemeAutoSSMCV (RBC) [Entitic vol]85.1 fL Xxwwyv64.0 - 100.0 fLFTMC HemeAutoSSPlatelet mean volume (Bld) [Entitic vol]7.7 fLNormal6.4 - 10.8 fLFTMC HemeAutoSSPlatelets (Bld) [#/Vol]260.0 E9/KQouzpc566.0 - 500.0 E9/LFTMC HemeAutoSSRBC (Bld) [#/Vol]4.4 E12/LNormal4.3 - 5.9 E12/LFTMC HemeAutoSSWBC corrected for nucl RBC Auto (Bld) [#/Vol]12.5 E9/LHigh4.0 - 11.0 E9/LFTMC HemeAutoSSComment on above:Result Comment: Slide reviewed by [employer]. CHEMISTRYOrdered By: SYSTEM SYSTEM on 78-52-1025Locje gap [Moles/Vol]9 mmol/L Normal6 - 16 mEq/LFTMC RemisolCalcium [Mass/Vol]8.0 mg/dLLow8.9 - 11.1 mg/dLFTMC RemisolChloride [Moles/Vol]102 mmol/LQzrqgi757 - 111 mmol/LFT[facility] RemisolCO2 [Moles/Vol]24 mmol/YFxheoc96 - 31 mmol/LFTMC RemisolCreatinine [Mass/Vol]0.9 mg/dLNormal0.5 - 1.3 mg/dLFTMC RemisolGFR/1.73 sq M.predicted among blacks MDRD (S/P/Bld) [Vol rate/Area]mL/min/1.73 r0Vtkbug>=59mL/min/1.73 m2[facility] Chem S GFR/1.73 sq M.predicted among non-blacks MDRD (S/P/Bld) [Vol rate/Area] mL/min/1.73 a1Tthjgq>=59mL/min/1.73 m2[facility] Chem SGlucose [Mass/Vol]129 mg/dL Lahgut97 - 199 mg/dLFTMC RemisolPotassium [Moles/Vol]4.1 mmol/LNormal3.5 - 5.3 mmol/LFT[facility] RemisolSodium [Moles/Vol]131 mmol/RCqs340 - 145 mmol/LFT[facility] Remisol Urea nitrogen [Mass/Vol]19 mg/dLNormal5 - 21 mg/dLFTMC RemisolUrea nitrogen/Creatinine [Mass ratio]21 mg/wvWndx60 - 20[facility] RemisolHEMATOLOGYOrdered By: SYSTEM SYSTEM on 79-79-5005Vwlytwcpo/100 WBC (Bld)0.5 %Normal0.0 - 2.0 %[facility] HemeAutoSSBasophils/Leukocytes Auto (Bld) [Pure # fraction]0.1 E9/LNormal0.0 - 0.2 E9/LFTMC HemeAutoSSEosinophils/100 WBC (Bld)1.4 %Normal0.0 - 8.0 %[facility] HemeAutoSSEosinophils/Leukocytes Auto (Bld) [Pure # fraction]0.2 E9/LNormal0.0 - 0.5 E9/LFTMC HemeAutoSSLymphocytes/100 WBC (Bld)7.0 %Low14.0 - 50.0 %[facility] HemeAutoSSLymphocytes/Leukocytes Auto (Bld) [Pure # fraction]0.9 E9/LLow1.0 - 4.0 E9/LFT[facility] HemeAutoSSMonocytes/100 WBC (Bld)5.9 %Normal4.0 - 14.0 %[facility] HemeAutoSSMonocytes/Leukocytes Auto (Bld) [Pure # fraction]0.8 E9/LNormal0.2 - 1.0 E9/LFT[facility] HemeAutoSSNeutrophils/100 WBC (Bld)85.2 %High36.0 - 75.0 %[facility] HemeAutoSSNeutrophils/Leukocytes Auto (Bld) [Pure # fraction]11.2 E9/LHigh2.0 - 7.5 E9/LFT[facility] HemeAutoSSHEMATOLOGYOrdered By: Cammie Douglas on 09-27-2022 Erythrocyte distribution width (RBC) [Ratio]13.3 %Movdpt27.9 - 14.2 %[facility] HemeAutoSSHematocrit (Bld) [Volume fraction]37.1 %Low37.7 - 49.0 %[facility] HemeAutoSSHemoglobin (Bld) [Mass/Vol]12.7 g/dLLow13.5 - 17.5 gm/dLFTMC HemeAutoSSMCH (RBC) [Entitic mass]28.9 txGzmyvm15.0 - 34.0 pgFTMC HemeAutoSSMCHC (RBC) [Mass/Vol]34.2 g/hZAyuxgc67.4 - 36.0 gm/dLFTMC HemeAutoSSMCV (RBC) [Entitic vol]84.4 xUGqpleo79.0 - 100.0 fLFTMC HemeAutoSSPlatelet mean volume (Bld) [Entitic vol]7.8 fLNormal6.4 - 10.8 fLFTMC HemeAutoSSPlatelets (Bld) [#/Vol]250.0 E9/FYftjil303.0 - 500.0 E9/LFT[facility] HemeAutoSSRBC (Bld) [#/Vol]4.4 E12/LNormal4.3 - 5.9 E12/LFT[facility] HemeAutoSSWBC corrected for nucl RBC Auto (Bld) [#/Vol]13.2 E9/LHigh4.0 - 11.0 E9/LFT[facility] HemeAutoSSCHEMISTRYOrdered By: SYSTEM SYSTEM on 96-47-4815Nriqp gap [Moles/Vol]12 mmol/LNormal6 - 16 mEq/LFT[facility] Remisol Calcium [Mass/Vol]7.7 mg/dLLow8.9 - 11.1 mg/dLFTMC RemisolChloride [Moles/Vol] 102 mmol/TXqbdbn960 - 111 mmol/LFT[facility] RemisolCO2 [Moles/Vol]21 mmol/TRumcdw07 - 31 mmol/LFT[facility] RemisolCreatinine [Mass/Vol]1.1 mg/dLNormal0.5 - 1.3 mg/dLFTMC RemisolGFR/1.73 sq M.predicted among blacks MDRD (S/P/Bld) [Vol rate/Area] mL/min/1.73 k3Uroost>=59mL/min/1.73 m2[facility] Chem SGFR/1.73 sq M.predicted among non-blacks MDRD (S/P/Bld) [Vol rate/Area]mL/min/1.73 m8Qhnspj>=59mL/min/1.73 m2 [facility] Chem SGlucose [Mass/Vol]121 mg/pMZwcrig79 - 199 mg/dLFT[facility] RemisolPotassium [Moles/Vol]4.2 mmol/LNormal3.5 - 5.3 mmol/LFTMC RemisolPrealbumin IA [Mass/Vol]8 mg/dLLow17 - 42 mg/dLFT[facility] RemisolSodium [Moles/Vol]131 mmol/ONne612 - 145 mmol/LFTMC RemisolUrea nitrogen [Mass/Vol]25 mg/dLHigh5 - 21 mg/dLFT[facility] Remisol Urea nitrogen/Creatinine [Mass ratio]23 mg/bqPzjs83 - 20[facility] RemisolCOAGULATION Ordered By: Indira Calvillo on 13-52-3850aTMB Coag (PPP) [Time]34.0 wGryopj21.1 - 36.5 second(s)[facility] Auto CoagINR Coag (PPP) [Relative time]2.2 {INR}Invalid Interpretation CodeFTMC Auto CoagPT Coag (PPP) [Time]25.0 sHigh9.4 - 12.5 second(s)[facility] Auto CoagHEMATOLOGYOrdered By: SYSTEM SYSTEM on 09-26-2022 Basophils/100 WBC (Bld)0.4 %Normal0.0 - 2.0 %FT HemeAutoSSBasophils/Leukocytes Auto (Bld) [Pure # fraction]0.1 E9/LNormal0.0 - 0.2 E9/LFT[facility] HemeAutoSS Eosinophils/100 WBC (Bld)0.4 %Normal0.0 - 8.0 %[facility] HemeAutoSS Eosinophils/Leukocytes Auto (Bld) [Pure # fraction]0.1 E9/LNormal0.0 - 0.5 E9/L [facility] HemeAutoSSLymphocytes/100 WBC (Bld)1.9 %Low14.0 - 50.0 %[facility] HemeAutoSS Lymphocytes/Leukocytes Auto (Bld) [Pure # fraction]0.3 E9/LLow1.0 - 4.0 E9/LFT[facility] HemeAutoSSMonocytes/100 WBC (Bld)3.1 %Low4.0 - 14.0 %[facility] HemeAutoSS Monocytes/Leukocytes Auto (Bld) [Pure # fraction]0.4 E9/LNormal0.2 - 1.0 E9/L [facility] HemeAutoSSNeutrophils/100 WBC (Bld)94.2 %High36.0 - 75.0 %[facility] HemeAutoSS Neutrophils/Leukocytes Auto (Bld) [Pure # fraction]13.5 E9/LHigh2.0 - 7.5 E9/L [facility] HemeAutoSSHEMATOLOGYOrdered By: Courtney Villagran on 49-87-2914Sjtvzxoeath distribution width (RBC) [Ratio]13.3 %Wquidw20.9 - 14.2 %[facility] HemeAutoSS Hematocrit (Bld) [Volume fraction]40.6 %Hnlwgq61.7 - 49.0 %[facility] HemeAutoSS Hemoglobin (Bld) [Mass/Vol]13.6 g/iWXfdrkw44.5 - 17.5 gm/dLFTMC HemeAutoSSMCH (RBC) [Entitic mass]29.0 udWahqje25.0 - 34.0 pgFTMC HemeAutoSSMCHC (RBC) [Mass/Vol]33.6 g/oZBhmnlz91.4 - 36.0 gm/dLFTMC HemeAutoSSMCV (RBC) [Entitic vol] 86.3 rAJvkela64.0 - 100.0 fLFTMC HemeAutoSSPlatelet mean volume (Bld) [Entitic vol]8.4 fLNormal6.4 - 10.8 fLFTMC HemeAutoSSPlatelets (Bld) [#/Vol]200.0 E9/L Nixjvf239.0 - 500.0 E9/LFTMC HemeAutoSSRBC (Bld) [#/Vol]4.7 E12/LNormal4.3 - 5.9 E12/LFT[facility] HemeAutoSSWBC corrected for nucl RBC Auto (Bld) [#/Vol]14.3 E9/LHigh 4.0 - 11.0 E9/LFTMC HemeAutoSSLaboratory - Microbiology and Antimicrobial susceptibilityOrdered By: Jeanine Miller on 25-52-3861Bpmhawva identified Respiratory culture Nom (Sput)1+ Normal upper respiratory marina isolatedPremier Health Atrium Medical CenterNo Panel InformationOrdered By: ANGPROCESSSERVER MICROBIOLOGY on 53-14-5315Rfxgr Culture CharcoalNo growth at 2 days. Final to follow at 7 days.[facility] Medical CenterBlood Culture CharcoalNo growth at 2 days. Final to follow at 7 days.[facility] CenterNo Panel InformationOrdered By: Jeanine Miller on 96-42-6553TAFyhvkjnpwk epithelial cells 1+ White Blood Cells Occasional Gram Positive Cocci Occasional Gram Positive RodsPremier Health Atrium Medical CenterCHEMISTRYOrdered By: SYSTEM SYSTEM on 76-24-3490Wctipiz [Mass/Vol]2.7 mmol/LHigh0.5 - 2.2 mmol/LFTMC RemisolTroponin I.cardiac [Mass/Vol]19.80 pg/gJNvqjer45.90 - 38.40 pg/mLFTMC RemisolTroponin I.cardiac [Mass/Vol]23.60 pg/cXLfalqa01.90 - 38.40 pg/mLFTMC RemisolProcalcitonin4.29 ng/mLHigh0.00 - 0.50 ng/mLFTMC RemisolTroponin I.cardiac [Mass/Vol]30.80 pg/yWKhupke59.90 - 38.40 pg/mLFTMC RemisolCHEMISTRY Ordered By: Georgina Morse on 51-62-3256Lppcjgb [Mass/Vol]2.0 mmol/LNormal0.5 - 2.2 mmol/LFTMC RemisolCLINDAMYCIN:SUSC:PT:ISOLATE:ORDQN:MICOrdered By: Jeanine Miller on 58-70-9910Wmuzaehbhol MARILY [Susc]Streptococcus pyogenes (Group A) In 2 of 2 blood culture bottles drawn. Isolated from aerobic and anaerobic bottles Preliminary gram stain result of gram positive cocci in chains Result called to Dr. Mendoza by [facility] and results read back for confirmation on 09/26/2022 11:11:50 [facility] Medical CenterClindamycin MARILY [Susc]Ordered By: Jeanine Miller on 23-56-1764Psnbbykiwmcsd pyogenes (Group A)Streptococcus pyogenes (Group A)[facility] Medical CenterMICRO OTHER TESTSOrdered By: Antwan Pizarro on 52-36-0843Yaqto COV Int NEG CtlPass (09/25/22 12:39 AM)NormalFT Man SeroRapid COV Int POS CtlPass (09/25/22 12:39 AM)NormalFT Man SeroSARS-CoV+SARS-CoV-2 (COVID-19) Ag IA.rapid Ql (Resp)Not Detected (09/25/22 12:39 AM)NormalNot DetectedFT Man Sero PENICILLIN:SUSC:PT:ISOLATE:ORDQN:MICOrdered By: Jeanine Miller on 09-25-2022 Penicillin MARILY [Susc]Streptococcus pyogenes (Group A) In 2 of 2 blood culture bottles drawn. Isolated from aerobic and anaerobic bottles Preliminary gram stain result of gram positive cocci in chains Result called to Dr. Mendoza by [facility] and results read back for confirmation on 09/26/2022 11:11:24 [facility] Medical CenterPenicillin MARILY [Susc]Ordered By: Jeanine Miller on 59-13-6574Klevklrecnant pyogenes (Group A)Streptococcus pyogenes (Group A)[facility] Medical CenterCHEMISTRYOrdered By: SYSTEM SYSTEM on 00-52-4665Pwptxpb [Mass/Vol]3.7 g/dLNormal3.3 - 5.0 gm/dLALL[facility]HE[facility] RemisolAlbumin/Globulin [Mass ratio] 1.0 {ratio}Low1.1 - 2.2[facility] RemisolALP [Catalytic activity/Vol]103 [iU]/dHigh21 - 98 Int._Unit/LFTMC RemisolALT No additional P-5'-P [Catalytic activity/Vol]27 [iU]/dNormal6 - 46 Int._Unit/LFT[facility] RemisolAST [Catalytic activity/Vol]29 [iU]/d Normal5 - 43 Int._Unit/LFTMC RemisolBilirubin [Mass/Vol]1.7 mg/dLHigh0.0 - 1.1 mg/dLFTMC RemisolBilirubin.direct [Mass/Vol]0.5 mg/dLHigh0.1 - 0.4 mg/dLFTMC RemisolBilirubin.indirect [Mass or moles/Vol]1.2 mg/dLHigh0.1 - 0.9 mg/dLFTMC RemisolGlobulin (S) [Mass/Vol]3.8 g/dLNormal1.4 - 4.0 gm/dLFTMC RemisolProtein [Mass/Vol]7.5 g/dLNormal6.0 - 7.8 gm/dLFTMC RemisolCOAGULATIONOrdered By: Antwan Pizarro on 18-40-4468sHEE Coag (PPP) [Time]29.0 yAqtunw03.1 - 36.5 second(s) [facility] Auto CoagFibrin D-dimer FEU (PPP) [Mass/Vol]4469 ng/mL FEUInvalid Interpretation Polw822 - 500 ng/mL FEUFCOMMUNITY HOSPITAL – [place] Auto CoagComment on above:Result Comment: Results Called To SARBJIT HIDALGO By Fanta And Read Back For Confirmation On 09/25/2022 00:07:02 EST Results Verified By Repeat AnalysisINR Coag (PPP) [Relative time]1.5 {INR} Invalid Interpretation CodeFT Auto CoagPT Coag (PPP) [Time]16.7 sHigh9.4 - 12.5 second(s)[facility] Auto CoagXR SHOULDER LEFT (MIN 2 VIEWS)on 11-01-2018 Thyrotropin QnHISTORY: Shoulder surgery. TECHNIQUE: 3 views of the left shoulder were obtained. No prior studies for comparison. FINDINGS: There are postoperative changes identified in the proximal humerus. There are mild degenerative changes of the shoulder. No fracture, dislocation or acute osseous abnormality is seen. IMPRESSION: Satisfactory postoperative changes. Mild degenerative changes present. Interpreted by: Meir Egan MD Signed by: Meir Egan MD 11/01/18 Final resultNormalKettering Health PrebleOPERATIVE REPORTon 49-60-7029HSJBWMCTH REPORT[address] [address] OPERATIVE REPORT PATIENT NAME: MIGUEL AWAD : 1965 MED REC NO: [id number] ROOM: ACCOUNT NO: [id number] ADMIT DATE: 10/18/2018 PROVIDER: Bob Vázquez DATE OF PROCEDURE: 10/18/2018 SURGEON: Dr. Bob Vázquez. MECHANIC: Alanna Rodriguez RN ANESTHESIA: Yvonne Trujillo CRNA; [...] provided. The patient was positioned on the [facility] table. Shoulder was examined without adhesive or [...] glenoid had mild degenerative changes. There was hszp-kd-durtjhgb fraying of the labrum. No instability. His [...] 1 to 1.5 cm. There were some bknk-oh-tflmmquq degenerative characteristics at the tendon but repairable [...] tissues were closed with 2-0 Vicryl suture. [place] were applied. Bacitracin, Adaptic, well-padded sterile soft dressing with super sling immobilizer placed. The patient was awakened from anesthesia and transferred to the recovery room in stable and satisfactory condition. CASE: Clean and elective. SPONGE AND NEEDLE COUNT: Correct. SPECIMEN: None. PATIENT CONDITION: Satisfactory. BOB VÁZQUEZ MOLINA/Lolly_TTNIR_T Doc#: [id number] CC: Jeremías VázquezNoFairfield Medical CenterBasi Metabolic Profon 10-13-2018 (cont.)Magruder HospitalComment on above:Result Comment: Average GFR for 50-59 years old: 93 mL/min/1.73sq m Chronic Kidney Disease: <60 mL/min/1.73sq m Kidney failure: <15 mL/min/1.73sq m eGFR calculated using average adult body mass. Additional eGFR calculator available at: http://www.[employer]/multiple_crcl_2012.htmPerformed By: #### KIRAN, BMP #### [facility] [address] [place] [address] Anion gap molar conc10 mmol/LNormal9-17[facility] Comment on above:Performed By: #### CBC, BMP #### [facility] [address] [place] [address] BUN/CRE Raxbt19Tyym0-35VxbsjKettering Health PrebleComment on above: Performed By: #### CBC, BMP #### [place] [address] Calcium mass conc9.9 mg/dLNormal8.6-10.4[facility] Comment on above:Performed By: #### CBC, BMP #### [facility] [address] [place] [address] Chloride molar piwq452 mmol/WAsjhhy82-049YgfbyKettering Health Preble Comment on above:Performed By: #### CBC, BMP #### [place] [address] CO2 molar conc27 mmol/QHbtrgl33-89GuiviKettering Health PrebleComment on above:Performed By: #### CBC, BMP #### [facility] [address] [place] [address] Creatinine mass conc0.74 mg/dLNormal0.70-1.20[facility] Comment on above:Performed By: #### CBC, BMP #### [place] [address] GFR, Amer>60Normal>60MerSamaritan HospitalComment on above: Performed By: #### CBC, BMP #### [address] [place] [address] GFR,non Amer>60Normal>60MerSamaritan HospitalComment on above:Performed By: #### CBC, BMP #### [facility] [address] [place] [address] Glucose mass viay453 mg/qMOxye13-64AgjesPalo Verde HospitalComment on above:Performed By: #### CBC, BMP #### [facility] [address] [place] [address] Potassium molar conc4.3 mmol/LNormal3.7-5.3MParkwood Hospital Comment on above:Performed By: #### CBC, BMP #### [facility] [address] [place] [address] Sodium molar rwek981 mmol/XRviktz079-966PuwspKettering Health Preble Comment on above:Performed By: #### CBC, BMP #### [facility] [address] [place] [address] Urea nitrogen mass conc16 mg/dLNormal6-20[facility] Comment on above:Performed By: #### CBC, BMP #### [facility] [address] [place] [address] Staging:NOT REPORTEDNormalKettering Health PrebleComment on above: Performed By: #### CBC, BMP #### [facility] [address] [place] [address] CBCon 37-73-3315Kwqpxrmvklo distribution width Ratio (RBC)12.4 % Dcnfiv53.1-15.2MParkwood HospitalComment on above:Performed By: #### CBC, BMP #### [facility] [address] [place] [address] Hematocrit Volume Fraction (Bld)48.4 %Mjpjfu14-44WuqroKettering Health PrebleComment on above:Performed By: #### CBC, BMP #### [facility] [address] [facility] [place] [address] Hemoglobin mass conc (Bld)16.3 g/pGBscixf24.5-17.5K[facility]tering Health PrebleComment on above:Performed By: #### CBC, BMP #### [address] [place] [address] MCH Entitic mass (RBC)29.6 whNfsrmz18-44AnchrKettering Health Preble Comment on above:Performed By: #### CBC, BMP #### [address] [place] [address] MCHC mass conc (RBC)33.6 g/tJJhskrs49-06ZzzjmKettering Health Preble Comment on above:Performed By: #### CBC, BMP #### [address] [place] [address] MCV Entitic volume (RBC)88.0 gDFbzpkp47-353LnejtKettering Health Preble Comment on above:Performed By: #### CBC, BMP #### [address] [place] [address] Platelets #/vol (Bld)340 10*3/xYTewyhz090-094VievbKettering Health Preble Comment on above:Performed By: #### CBC, BMP #### [address] [place] [address] RBC #/vol (Bld)5.50 10*6/uLNormal4.5-5.9[facility] Comment on above:Performed By: #### CBC, BMP #### [address] [place] [address] WBC #/vol (Bld)8.9 10*3/uLNormal3.5-11.0[facility] Comment on above:Performed By: #### CBC, BMP #### [address] [place] [address] NRBC AutomatedNOT REPORTEDNormalKettering Health PrebleComment on above:Performed By: #### CBC, BMP #### [facility] [address] [place] [address] Platelet mean volume Entitic volume (Bld)NOT REPORTEDNormal6.0-12.0 [facility] Health PrebleComment on above:Performed By: #### CBC, BMP #### [facility] [address] [facility] [place] [address] XR CHEST (2 VW)on 63-76-1986QN CHEST (2 VW)PA AND LATERAL CHEST CLINICAL HISTORY: Preop. COMPARISON: None. FINDINGS: Two views are submitted. The lungs and pleural spaces are clear. Pulmonary vascular markings are normal. The cardiomediastinal silhouette is within normal limits. No bony lesions are shown. IMPRESSION: No acute cardiopulmonary abnormality. Interpreted by: Stephanie Dunn MD Signed by: Stephanie Dunn MD 10/13/18 Final resultNoFairfield Medical Center Vital Signs Date TimeVital SignValuePerforming LmojobsnlWlywxdsm68-69-7150 09:06-0500Body isgigj517.9 Zahira Ibarra MD Work Phone: [facility]02-09-2023 09:06-0500Body mass index (BMI) [Ratio]37.04 kg/x4EurdkccMadiha Ibarra MD Work Phone: [facility]02-09-2023 09:06-0500Body yyxpynppujj96.1 [degF]Madiha Ibarra MD Work Phone: [phone]02-09-2023 09:06-0500Body ludsse508.88 kgMadiha Ibarra MD Work Phone: [phone]02-09-2023 09:06-0500 Diastolic blood uxbxqtdu35 mm[Hg]Madiha Ibarra MD Work Phone: [phone]02-09-2023 09:06-0500Heart rate79 /Radha Ibarra MD Work Phone: [phone]02-09-2023 09:06-0500 Respiratory rate18 /Radha Ibarra MD Work Phone: [phone] [place], [place] [address]02-09-2023 09:06-1219TsS7% (BldA) [Mass fraction]97 %Madiha Ibarra MD Work Phone: [phone]02-09-2023 09:06-0500Systolic blood mm[Hg]Madiha Ibarra MD Work Phone: [phone] [place], [place] [address]12-20-2022 09:19-0500[facility]12-[facility]-2022 09:19-0500[facility]12-20-2022 08:19-0500[facility] RoundingMemorial Hospital12-20-2022 08:19-0500[facility]Mem[facility]12-20-2022 08:13-0500Heart qcyt482 /[facility]12-20-2022 08:13-0500Respiratory rate16 /[facility]12-20-2022 08:10-6138MuH9% (BldA) [Mass fraction]94 %[facility]12-20-2022 08:07-0500Heart ysjd941 /[facility]12-20-2022 08:07-0500Respiratory rate18 /[facility] 09-28-2022 07:50-0500Heart rate98 /[facility] 09-28-2022 07:50-0352VrX1% (BldA) [Mass fraction]97 %[facility]12-20-2022 07:46-0500Diastolic blood okuoxzop51 mm[Hg][facility]12-20-2022 07:46-0500Mean blood yyhvuumx109 mm[Hg] [facility]12-20-2022 07:46-0500Systolic blood gduhgxuw713 mm[Hg][facility]12-20-2022 07:45-0500 Body lvkmkrixetf63.42 [degF][facility]12-20-2022 07:45-0500Respiratory rate16 /minMem[facility] 09-28-2022 07:19-0500[facility]ingMem[facility] 09-28-2022 07:19-0500[facility]2022 05:00-0500Blood [facility] 05:00-0500Body gjpofffgctg52.78 [degF][facility]12-20-20[facility] 05:00-0500Diastolic blood cfjdcuwa58 mm[Hg][facility]12-20-2022 05:00-0500Mean blood gsyggrxu994 mm[Hg] [facility]12-20-2022 05:00-2765TtE8% (BldA) [Mass fraction]96 %[facility]12-20-2022 05:00-0500 Systolic blood mqyuqmks637 mm[Hg][facility] 09-27-2022 20:00-0500Body rgbrefkcoyz26.88 [degF][facility]12-19-2022 20:00-0500Diastolic blood xcumhtlv47 mm[Hg][facility]12-19-2022 20:00-0500Systolic blood htywibkb867 mm[Hg][facility]12-19-2022 16:38-0500Mean blood lbkassvw37 mm[Hg][facility]12-19-2022 16:38-0500 Body qqzbnahkoqa19.6 [degF][facility]12-19-2022 11:00-0500[facility] 09-27-2022 11:00-0500Mean blood anhpgjhl55 mm[Hg][facility]12-19-2022 09:56-0235RSD419 %[facility]12-19-2022 08:20-7857BMP832 %[facility] 09-27-2022 07:00-0500Mean blood zfnnjcaw263 mm[Hg][facility]12-18-2022 20:06-0500Mean blood bwisqtjj534 mm[Hg][facility]12-18-2022 20:06-0500Body qnhkteisifa096.22 [degF] [facility]12-18-2022 08:30-4780RZC344 %[facility]12-17-2022 06:00-0500Respiratory rate24 /[facility]12[facility] 04:14-0500Nursing Progress Note ReasonOther: pt taking crackers.[facility] 09-25-2022 04:14-0500Respiratory rate25 /min[facility]12-[facility]2022 03:34-0500Nursing Progress Note ReasonOther: [facility]12[facility] 03:34-0500Respiratory rate21 /min[facility]12[facility]22 02:59-0500Nursing Progress Note ReasonOther: antibotic started. pt complains of body aches. repeat vitals done. [facility] 250ml/hr[facility] 09-25-2022 01:23-0500Body rqoszgppysh963.12 [degF][facility]12-16-2022 23:03-0500Heart rcde510 /minNishit [facility] Encounters Encounter DateEncounter TypeCare ProviderFacilityStart: 03-18-2023 End: 00-53-8297qdostszahmAOKZHWK R. CLOYESFacility:[facility]Start: 12-03-2022 ambulatoryJOVAN MARIN (JOHN)NOVSKIFacility:[facility]Start: 11-30-2022 End: 57-69-2690aowmhrywfuRD JEREMÍAS SOTOMAYOR .Facility:M2Npyzh: 85-08-3346qenmdtrpvuenedina IBARRAFacility:[facility] TEXAStart: 96-83-6734pnfqiaockbAACD SELF Facility:[facility]Start: 11-18-2022 End: 00-40-4832Ijroud outpatient new 60 minutesMadiha Ibarra MD Work Phone: Division of Pul[facility] [facility] Hospital CenterComment on above:Lung nodule (Primary Dx); Mediastinal lymphadenopathy; Aortic root dilatationStart: 25-26-3989vgsyuexxvdDB JEREMÍAS SOTOMAYOR .Facility: Start: 11-10-2022 End: 32-75-9726mbbpwpfrygKqoonil HoyFacility:FTMCStart: 11-10-2022 End: 37-07-8446RoqghhotfIcnptye Hoy [facility] Start: 11-09-2022 End: 78-85-5896knkylglubhBR STEVEN R ZIEBERFacility:D5Cbqsy: 11-05-2022 End: 43-34-9379pvxayesbtkPqjrcis HoyFacility:FTMCStart: 11-02-2022 End: 51-25-0263ggmedglentJAZHTQ CRAMERFacility:I4Cidtd: 09-24-2022 End: 88-47-7387Oqgqhqazle and management of inpatientShahzad Ruvalcaba [facility] Start: 11-01-2018 End: 59-82-7235Gpygobs encounter procedureMICCA Bueno HospitalStart: 11-01-2018 End: 59-59-6101Jvkyitn encounter procedureMICCA Bueno HospitalStart: 10-18-2018 End: 67-11-7894Ntlmbyc encounter procedureOBB Bueno HospitalStart: 90-76-5567Afkgafmvh for preprocedural respiratory examination BOB [facility]eno HospitalStart: 10-13-2018 End: 34-57-2408Jfeczfc encounter procedureMICCA VÁZQUEZGood Samaritan Hospitalerlinda [facility] Procedures DateProcedureProcedure DetailPerforming ClinicianStart: 56-77-5397Eamojo of breastNishit SHAHComment on above:excisional biopsy of right breastStart: 86-48-3333Wlyjmd of breastNishit SHAHStart: 78-60-2095IykvunyjhnzCywdga BLACKBURN Start: 40-43-5609Siqpi shoulder complete minimum 2 viewsMICMARTIN MEMORIAL HOSPITAL POWERSStart: 11-06-1828HHVLCJI DIET TOLERATED (NURSING COMMUNICATION)BOB POWERSStart: 58-68-6077LGGOCRGZ PATIENTMICMARTIN MEMORIAL HOSPITAL POWERSStart: 09-87-3250PYBJUFUEK PATIENT BOB POWERSStart: 24-34-9495VIVVRZPRF DEEP BREATHING AND COUGHINGMICMARTIN MEMORIAL HOSPITAL POWERSStart: 54-88-9727QLGW CODEMICMARTIN MEMORIAL HOSPITAL POWERSStart: 35-22-5176LCQFBGLC OXYGEN THERAPY PROTOCOLMICMARTIN MEMORIAL HOSPITAL POWERSStart: 09-09-5141FEIUY/VASCULAR CHECKSMICMARTIN MEMORIAL HOSPITAL POWERSStart: 30-56-0313REUDMF FOR NO CHEMICAL VTE PROPHYLAXISMICHAEL VÁZQUEZ Start: 77-95-0935WVGBSCK CESSATION EDUCATIONMICHAE POWERSStart: 79-76-4815WNYVN SIGNSQUAKER HILL POWERSStart: 18-68-3105RKIGWH BEARING TOLERATEDMICHAEL VÁZQUEZ Start: 06-35-8712FJMQO CAREMICHAE POWERSStart: 95-53-9029SVEU NPO, NOWMICHAEL POWERSStart: 73-83-8241TRKRVFV COMMUNICATIONMICMARTIN MEMORIAL HOSPITAL POWERSStart: 44-85-5509XJWZU SIGNSQUAKER HILL POWERSStart: 57-83-1373ZYHBTX INFORMED CONSENTMICMARTIN MEMORIAL HOSPITAL POWERSStart: 62-59-7900YVG 12-LEADMICHAEL POWERSStart: 98-44-6425Dpzvgzknmw exam chest 2 viewsMICHAEL POWERSStart: 12-76-3049Nyxru metabolic panel calcium totalMICHAEL POWERSStart: 38-58-5961Neupt count complete automatedMICHAEL POWERSRepair of musculotendinous cuff of shoulderNishit SHAHRotator cuff syndrome (disorder) Shahzad BLACKBURNComment on above:leftVasectomyBrentit BLACKBURN Plan of Treatment DateCare ActivityDetailAuthorStart: 02-17-2023 End: 67-90-1333Lgyrabr encounter luivxtoqy67/11/2023 Office Visit Pulmonary Disease Madiha Ibarra MD [address] [place] [phone] [facility]art: 02-17-2023 End: 23-42-6562Orhxcao encounter xbkaktbry67/11/2023 Appointment Computerized Tomography Scan Samantha Long, TOOL AND DIE MANAGER-FREIGHT UNLOADER [address] [place] [address] Department of RadiologyStart: 11-18-2022 End: 91-39-2963CB Chest WO contrastCT CHEST WITHOUT CONTRAST Imaging Routine Mediastinal lymphadenopathy Lung nodule Expected: 11/18/2022, Expires: 11/18/2023[facility] HospitalComment [facility] above:Expected: 11/18/2022, Expires: 11/18/2023Start: 75-40-6125Pwqnsbuvt vaccinationINFLUENZA VACCINE (#1) [facility] CenterStart: 56-44-9276Okmifjly specific antigen measurement PROSTATE CANCER SCREENING DISCUSSIONOSU [facility]red Hospital Daytontart: 2017 Zoster vaccine hzv live for subcutaneous useZOSTER (SHINGLES) VACCINE (1 of 2) [facility] Daytontart: 20-90-3343Dqvanjoud for malignant neoplasm of colonCOLORECTAL CANCER SCREENING DISCUSSIONOSU [facility] Daytontart: 80-14-8954Svpge panelLIPID SCREENINGOSU [facility] Daytontart: 1986 Third diphtheria, tetanus and acellular pertussis (DTaP) vaccinationTDAP (ADULT) [facility]: 16-06-6349CWE screeningHIV SCREENING DISCUSSION [facility] Hospitaltart: 13-17-4134RZIUO-19 VACCINE (#1)COVID-19 VACCINE (#1)[facility] Hospitaltart: 15-69-1209Abkoojlge C screeningHEPATITIS C VIRUS SCREENINGOSU [facility] Daytontart: 04-87-7535Ufaterg vaccination TETANUSOSMansfield Hospital Payers DatePayer CategoryPayerPolicy [id number] KAREN O PPO POS [id number] 2022-Present [address] [place] [address] [id number] [id number] 2..1.077352.3.57[id number] 2..1.620395.3.57[id number] 2..1.858171.3.57[id number] 2..1.566004.3.57[id number] 2..1.012167.3.57[id number] 2.0.1.420573.3.57[id number] 2..1.772976.3.57[id number] 2..1.232271.3.57[id number] 2.16.840.1.176068.3.57[id number] 2.16.840.1.468200.3.57[id number] 2.16.840.1.279810.3.579.[id number] 2.16.840.1.225676.3.57[id number] 2.16.840.1.175991.3.57[id number] 2.16.840.1.724970.3.57[id number] 2.16.840.1.603747.3.57[id number] 2..840.1.553415.3.57[id number] 2.16.840.1.320287.3.579.2.96344-69-6523UbpghtbG1B038Q95675 Social History DateTypeDetailFacilityStart: 10-28-2020 End: 24-36-7287Putuwkc smoking statusNever smoked tobacco (finding)[facility]ex Assigned At BirthMaleFCleveland Clinictart: 62-95-3767Npalysr use and exposureSmokeless tobacco non-userOSU [facility] Hospital Daytontart: 87-54-8179Tft Assigned At BirthNot on fileSCCI Hospital Lima Start: 11-08-2022 End: 07-73-3677Sbnwrdru to SARS-CoV-2 (event)Unable to assessU [facility] Functional Status FdlhXmqwptagmaUcqewxSwkknafe70-11-1647Exztnhospg StatusN/AFMansfield Hospital12-16-2022Functional StatusPrem[facility] History of Present illness Narrative 11-18-2022 Note Date & OdzgVckcBxdwukqb44-54-4803 History of Present illness Narrative* JUANITA Sheppard - 11/18/2022 9:00 AM EST Images from the original note were not [...] to be getting histo titers drawn at [facility] but hasn't gotten them yet. He [...] E Calcium Mixed Carotenoids Mixed Tocophenols Lycopene Saxon extract Grape seed extract HERBAL PRODUCT Take [...] tablet Take 1 tablet by mouth daily. [place]-3 1000 MG capsule Take 2 capsules by [...] oz) SpO2 97% BMI 37.04 kg/m Smoking StatusNever Body mass index is 37.04 kg/m . [...] x 1.7 subpleural RLL nodule & mediastinal lymphadenopathyfound d/t hospital admission for strep pneumonia & influenza A in September. RLL nodule: This is greater than 1cm & avid on PET so needs evaluated but its round which couldbe benign and the avidity is next to the nodule therefore we will get the NODIFY biomarker test to evaluate his risk & depending on that result bronch vs repeat CT; patient not on ac. Discussed risks of bronch if it's needed. He will need a repeat CT here if it is needed for thin cuts. We will a lso get fungal serologies to see if it's [...] assessment and plan and discussed with the OTHER SALES SUPPORT WORKER. My findings are in agreement as [...] 4.3 cm. He agrees. Madiha Ibarra MD Per Diemblood bank assistant Interventional Pulmonary and Critical Care Medicine documented in this encounterSCCI Hospital [facility] Instructions 11-18-2022 Note Date & IapvXfbuUfgkzioq15-12-5761 Instructions* Patient Instructions* JUANITA Sheppard - 11/18/2022 9:00 AM EST The blood test result for the risk of the nodule will take 2-3 weeks to come back documented in this encounterSCCI Hospital [facility]ima Evaluation + Plan note 09-28-2022 Note Date & LtrhEeqbZheaqsai47-77-7914 Evaluation + Plan noteExtracted from: Title:Discharge NoteAuthor:Shahzad BLACKBURN MD PDate:09/28/22 Discharged to - Home independently Discharge Diet(s): Low Sodium- 2000 mg (09/27/22 08:55:00) Prescriptions Augmentin 875 mg oral tablet, 1 tab(s), Oral, q12hr Mucinex 600 mg Tab-ER, 1200 mg= 2 tab(s), Oral, BID Home Multi Vitamin+, 1 tab(s), Oral, Daily Vitamin D, 1 tab, Oral, Daily With When Contact Information Jeremías Sotomayor Within [address] to [address] [place] [address] Business (1) Additional Instructions: Call physician if symptoms worsen Call for followup appointment Follow-up with your primary care doctor and schedule outpatient repeat imaging with 2 view chest x-ray in 4 to 6 weeks to make sure the pneumonia has completely resolved. Community-Acquired Pneumonia, Adult Sepsis, Diagnosis, Adult Extracted from:Title:APSO NoteAuthor:Shahzad BLACKBURN MD PDate:09/27/22 57-year-old male with past m edical history [...] made to ensure accuracy, however, inadvertently computerized licensed land surveyor mistakes may be present. Dr. Shahzad Blackburn Hospitalist at [facility] Extracted from:Title:Admission H & PAuthor:Shahzad BLACKBURN MD PDate:09/25/22 57-year-old male with past m edical history of obesity, chronic back pain presented to emergency department due to fevers with body ache and chest tightness. 1. CAP (community acquired pneumonia) (J18.9: Pneumonia, unspecified organism) With right lower lobe infiltrate after nnbtspdzj-Dbmhverbi-ueqvepah pneumonia Admit patient for inpatient treatment as [...] Oral, Once, Stop date 09/25/22 6:00:00 EST, Routine,Start date 09/25/22 6:00:00 EST, 09/25/22 5:20:00 EST [...] 1,000 mg = 1 EA, IV Piggyback, z98tdtto 5 day(s), Stop date 09/30/22 5:15:00 EST, [...] CBC w/ Auto Diff Consult to Clinical Technical Designer Consult to Dietitian Adult Intake and Output [...] made to ensure accuracy, however, inadvertently computerized licensed land surveyor mistakes may be present. Dr. Shahzad Blackburn Hospitalist at [facility] Extracted from:Title:ED NoteAuthor:Jovany ROSEN, TimDate:09/25/22 1. Right lower lobe pulmonar y infiltrate [...] mL, Soln-IV, IV, Once, Stop date 09/24/22 23:45:00EST, STAT, Start date 09/24/22 23:45:00 EST, mL/hr, [...] Panel CBC w/ Auto Diff COVID[place]A Chest D-Dimer ECG 12 Lead Adult ED Cardiac Monitoring ED Cardiac Monitoring ED Physician consult Hospitalist for continued care eGFR Hepatic Function Panel Oxygen Saturation Oxygen Therapy Procalcitonin PT & PTT Rapid COVID Antigen ([facility] Respiratory Panel by PCR Saline Lock Insert Troponin 0 Hr. Troponin 3 Hr. Troponin 6 Hr. Troponin 9 Hr. XR Chest 2 Views Addendum by Augie Manzo MD on September 25, 2022 06:09:55 EST Additional piece of history and physical findings. Patient over the past several days has complained of a sharp pain in the right buttock region. This area was examined there is no erythema induration or fluctuance that I detect the area just lateral to the right ischial tuberosity is tender. Thereis some thickened skin with some scaling at the midline suggestive of a chronic dermatitis just superior to the anus. Future Scheduled Tests Radiology* CT Chest w/ Contrast 10/26/22 [facility] Discharge instructions 09-27-2022 Note Date & BvdxXwhiOpbekuhn29-25-2922 Hospital Discharge instructions Patient Education 09/27/2022 08:56:53 Community-Acquired Pneumonia, [...] This is done if you are not breathingwell on your own and you cannot maintain a safe blood oxygen level. Thoracentesis. This is a procedure to remove fluid from around one lung or both lungs to help you breathe better. Follow these instructions at home: Medicines Take qhaq-dqt-wywrvhb and prescription medicines only as told by your health care provider. ?Only take cough medicine if you are losing sleep. Be aware that cough medicine can prevent your body's natural ability to remove mucus from your lungs. If you were prescribed an antibiotic medicine, take it as told by your health care provider. Do notstop taking the antibiotic even if you start [...] contain nicotine or tobacco, such as cigarettes, e- cigarettes, and chewing tobacco. If you need help [...] are undergoing cancer treatment, have chronic lung disease,or have other medical conditions that affect your immune system. Ask your health care provider if this applies to you. Getting an influenza vaccine every year. Ask your health care provider which type of vaccine is best for you. Getting regular checkups from your dentist. Washing your hands often. If soap and water are not available, use hand fountain operator. Contact a health care provider if: [...] been in the hospital. It can be causedby bacteria, viruses, or fungi. This condition may [...] 09/26/2006 Document Revised: 05/24/2019 Document Reviewed: 05/24/2019 [employer] Patient Education 2020 [employer]. 09/27/2022 08:56:53 Sepsis, Diagnosis, Adult Sepsis, Diagnosis, Adult Sepsis is a serious bodily reaction to an infection. The infection that triggers sepsis may be froma bacteria, virus, or fungus. Sepsis can result [...] Follow these instructions at home: Medicines Take iepc-wri-rsbfhld and prescription medicines only as told by [...] 06/24/2004 Document Revised: 05/04/2019 Document Reviewed: 05/04/2019 [employer] Patient Education 2020 [employer]. Follow Up Care 09/24/2022 22:53:19 With:Jeremías Sotomayor Address: [address] [place] [phone]- Business (1) When:10/07/2022 14:00:00 Comments:Follow-up with your primary care doctor and schedule outpatient repeat imaging with 2 view chest x-ray in 4 to 6 weeks to make sure the pneumonia has completely resolved. [facility] Evaluation note Note Date & TypeNoteFacilityEvaluation note* Diagnosis Lung nodule- Primary Solitary pulmonary nodule Mediastinal lymphadenopathy Enlargement of lymph nodes Aortic root dilatation Aortic ectasia, unspecified site documented in this encounter [facility] Hospital course Narrative Note Date & TypeNoteFacilityHospital course Narrative No data available for this section [facility] Hospital Discharge instructions Note Date & TypeNoteFacilityHospital Discharge instructions No data available for this section [facility] Progress note Note Date & TypeNoteFacilityProgress note No data available for this section [facility] Reason for referral (narrative) Note Date & TypeNoteFacilityReason for referral (narrative)* Consultation (Routine) - New RequestSpecialtyDiagnoses / ProceduresReferred By Contact Referred To ContactThoracic Surgery Diagnoses Aortic root dilatation Samantha Long APRN-CNP [address] [place] [address] Referral IDStatusReasonStart DateExpiration DateVisits RequestedVisits [id number] Request/ * MRI/CAT Scan (Routine) - New RequestSpecialtyDiagnoses / ProceduresReferred By ContactReferred To Contact Diagnoses Mediastinal lymphadenopathy Lung nodule Procedures CT CHEST WITHOUT CONTRAST CHG DIAGNOSTIC COMPUTED TOMOGRAPHY THORAX W/O CNTRST Samantha Long APRN-CNP [address] [place], [place] [id number] Referral IDStatusReclaudiaStlos angeles DateExpiration DateVisits RequestedVisits [id number] Request/ [facility] Summary Purpose Family History No Family History Records FoundNo Family History Records FoundNo Family History Records FoundNo Family History Records Found Advance Directives No Advanced Directives Records FoundDocuments on File TypeDate RecordedPatient RepresentativeExplanationHealthCare Power of [place] 11/18/2022 9:32 AMHealthCare Power of Attorney05/25/2001 Additional Source Comments (unrecognized sect ion and content) No Status Records FoundNo Status Records FoundNo Status Records FoundNo Status Records Found INFORMATION SOURCE (unrecogn ized section and content) DATE CREATED AUTHOR 11/16/2018 [facility] DATE CREATED AUTHOR AUTHOR'S ORGANIZ ATION 12/05/2022 [facility] DATE CREATED AUTHOR AUTHOR'S ORGANIZ ATION 01/11/2023 [facility] DATE CREATED AUTHOR AUTHOR'S ORGANIZ ATION 10/12/2023 [facility] Patient Care team informatio n (unrecognized section and content) Personnel Name: Jeremías Sotomayor MD Address: Address: [address] [place] [address] Personnel Name: Jeremías Sotomayor MD Address: Address: [address] [place] [address] Reason for Visit (unrecogniz ed section and content) ReasonCommentsImmunization/InjectionDeclines vaccinations today.Dyspnea On ExertionDeniesWheezingDeniesCoughDenies FOR RECORDS PERTAINING TO PATIENTS WHO ARE [...] BE BASED ON THE PRIMARY CLINICAL RECORDS. [facility] [employer] [facility]. provides no warranty or guarantee of the accuracy or completeness of information in this document.
[2025-08-03 10:42] LABS: Alanine Aminotransferase 51 U/L (16-63); Albumin Globulin Ratio 1.0; Albumin Level 3.8 g/dL (3.4-5.0); Alkaline Phosphatase 109 U/L (46-116); Anion Gap 13.5; Aspartate Amino Transferase 16 U/L (15-37); Blood Urea Nitrogen 16.0 mg/dL (7.0-18.0); Calcium 8.8 mg/dL (8.5-10.1); Carbon Dioxide 29.0 mmol/L (21.0-32.0); Chloride 102 mmol/L (98-107); Cholesterol 220 mg/dL (<=200); Estimated GFR (African America >60 (>=60 mL/min/1.73m^2); Estimated GFR (Non-African Ame >60 (>=60 mL/min/1.73m^2); Free T3 3.31 pg/mL (2.18-3.98); Globulin 3.7 g/dL; Glucose 112 mg/dL (74-106); HDL Cholesterol 51 mg/dL (40-60); Potassium 4.5 mmol/L (3.5-5.1); Sodium 140 mmol/L (136-145); Thyroid Stimulating Hormone 1.724 uIU/mL (0.358-3.740); Total Protein 7.5 g/dL (6.4-8.2); Triglycerides 209 mg/dL (<=150); VLDL CHOLESTEROL 41.8 mg/dL
[2025-08-03 12:05] LABS: Hematocrit 47.3 % (42.0-54.0); Hemoglobin 15.8 g/dL (14.0-18.0); Immature Granulocytes Abs Auto 0.05 10^3/uL (0.00-0.03); Immature Granulocytes Pct Auto 0.5 % (0.0-0.5); Lymphocytes Absolute Auto 2.4 10^3/uL (1.2-3.8); Mean Corpuscular HGB Conc 33.4 g/dL (29.9-35.2); Mean Corpuscular Hemoglobin 30.0 pg (25.9-34.0); Mean Corpuscular Volume 89.8 fL (80.0-94.0); Platelet Count 289 10^3/uL (150-450); Red Blood Count 5.27 10^6/uL (4.70-6.10); White Blood Count 9.3 10^3/uL (4.0-11.0)
== END 2025-08-03 09:48 | disposition home or self-care (01) ==
LOC: LAB 09:48
PROVIDERS: PCP Family Medicine; Visit Provider Family Medicine
DX: Z00.00 Encounter for general adult medical examination without abnormal findings (principal); Z12.5 Encounter for screening for malignant neoplasm of prostate
CPT/HCPCS: 36415; 80053; 80061; 83036; 83525; 84436; 84443; 84481; 85025; G0103